=== PATIENT | male | born 1955 | race African-American/Black ===

== ENCOUNTER 2018-01-04 11:07 | Inpatient (IN) | payer OTHER ==
[2018-01-04 13:32] VITALS: BMI 26.6
--- NOTE | 2018-01-04 14:16 | HP ---
CIWA Score - CIWA Score Nausea/Vomitin Muscle Tremors: 3 Anxiety: 3 Agitation: 3 Paroxysmal Sweats: 2 Orientation: 0-Oriented Tacttile Disturbances: 2-Mild Itch/Numbness/Burn Auditory Disturbances: 2-Mild Harshness/Frighten Headache: 2-Mild Admission ROS BHS - HPI Chief Complaint: I NEED HELP TO STOP DRINKING ALCOHOL,XANAX,KLONOPOIN,SEEKING DETOX,LAST TREATMENT [facility] Allergies/Adverse Reactions: Allergies Allergy/AdvReac Type Severity Reaction Status Date / Time No Known Allergies Allergy Verified 01/04/18 14:11 History of Present Illness: THIS 62 YEARS OLD MALE WITH ALCOHOL,XANAX DEPENDENCE,SEEKING DETOX,WITHDRAWAL SYMPTOM,LAST DETOX [facility] 11/05/15 TO 11/10/15 [facility] 90 MGS/DAY,LAST MEDICATED TODAY, OLD ID LEFT INGUINAL HERNIA 4 YEARS HEPATITIS C NICOTINE DEPENDENCE LONGEST PERIOD OF SOBREITY 13 YEARS BPH Exam Limitations: No Limitations - Ebola screening Have you traveled outside of the country in the last 21 days: No Have you had contact with anyone from an Ebola affected area: No Have you been sick,other than usual withdrawal symptoms: No Do you have a fever: No - Review of Systems Constitutional: Loss of Appetite, Malaise, Night Sweats, Changes in sleep, Weakness EENT: reports: Tearing, Nose Congestion Respiratory: reports: No Symptoms reported Cardiac: reports: No Symptoms Reported, Other (OLD ID) GI: reports: Diarrhea, Nausea, Vomiting, Abdominal cramping : reports: Frequency, Urgency (HISTORY OF BPH) Musculoskeletal: reports: Back Pain, Muscle Pain Integumentary: reports: Dryness Neuro: reports: Headache, Tremors Endocrine: reports: No Symptoms Reported Hematology: reports: No Symptoms Reported Psychiatric: reports: Anxious, Depressed Patient History - Patient Medical History Hx Anemia: Yes Hx Asthma: No Hx Chronic Obstructive Pulmonary Disease (COPD): No Hx Cancer: No Hx Cardiac Disorders: No (CHEST PAINS OLD ID) Hx Congestive Heart Failure: No Hx Hypertension: Yes (NO MED) Hx Hypercholesterolemia: No Hx Pacemaker: No HX Cerebrovascular Accident: No Hx Seizures: No Hx Dementia: No Hx Diabetes: No Hx Gastrointestinal Disorders: No Hx Liver Disease: No Hx Genitourinary Disorders: No Hx Sexually Transmitted Disorders: Yes (GONORRHEA [place] YEARS AGO) Hx Renal Disease (ESRD): No Hx Thyroid Disease: No Hx Human Immunodeficiency Virus (HIV): No (negative "im ok"LAST 12/05) Hx Hepatitis C: Yes Hx Depression: No (DENIES) Hx Suicide Attempt: No (DENIES) Hx Bipolar Disorder: No Hx Schizophrenia: No Other Medical History: NO SUICIDAL.NO HOMICIDAL - Patient Surgical History Past Surgical History: Yes Hx Orthopedic Surgery: Yes (compound fracture remote L ankle) Anesthesia Reaction: No - PPD History Previous Implant?: Yes Documented Results: Positive w/o proof PPD to be Administered?: No - Smoking Cessation Smoking history: Current every day smoker Have you smoked in the past 12 months: Yes Aproximately how many cigarettes per day: 20 Cigars Per Day: 0 Hx Chewing Tobacco Use: No Initiated information on smoking cessation: Yes 'Breaking Loose' booklet given: 01/04/18 - Substance & Tx. History Hx Alcohol Use: Yes Hx Substance Use: Yes Substance Use Type: Alcohol, Tranquilizers Hx Substance Use Treatment: Yes (11/05/15 TO 11/10/15) - Substances Abused Alcohol Route: Oral Frequency: Daily Amount used: 1 pint vodka Age of first use: 11 Date of Last Use: 01/04/18 Benzodiazepine (Klonopin) Route: Oral Frequency: Daily Amount used: 4mg Age of first use: 55 Date of Last Use: 01/04/18 Family Disease History - Family Disease History Family Disease History: Other: Father (ALCOHOL,), Mother (ALCOHOL, ) Admission Physical Exam S - Vital Signs Vital Signs: Vital Signs - 24 hr 01/04/18 13:29 Temperature 96.4 F L Pulse Rate 77 Respiratory 20 Rate Blood Pressure 132/85 - Physical General Appearance: Yes: Moderate Distress, Tremorous, Irritable, Sweating, Anxious HEENTM: Yes: Normocephalic, COCO, Pharynx Normal Respiratory: Yes: Within Normal Limits, Lungs Clear, Normal Breath Sounds Neck: Yes: Within Normal Limits, Supple, Trachea in good position Breast: Yes: Within Normal Limits Cardiology: Yes: Within Normal Limits, Regular Rhythm, Regular Rate, S1, S2 Abdominal: Yes: Within Normal Limits (LEFT INGUINAL HERNIA SIZE [id number],REDUCIBLE ), Normal Bowel Sounds, Non Tender, Flat, Soft Genitourinary: Yes: Within Normal Limits Back: Yes: Muscle Spasm Musculoskeletal: Yes: Within Normal Limits, full range of Motion, Back pain Extremities: Yes: Tremors, Other (S/P SURGERY OF LEFT ANKLE) Neurological: Yes: 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 II-XII NML intact, Fully Oriented, Alert, Motor Strength 5/5 Integumentary: Yes: Dry Lymphatic: Yes: Within Normal Limits - Diagnostic (1) Alcohol dependence with uncomplicated withdrawal Current Visit: No Status: Acute (2) Opioid dependence Current Visit: Yes Status: Acute (3) Methadone maintenance therapy patient Current Visit: Yes Status: Acute (4) Uncomplicated sedative, hypnotic or anxiolytic withdrawal Current Visit: Yes Status: Acute (5) Left inguinal hernia Current Visit: No Status: Acute (6) BPH (benign prostatic hypertrophy) Current Visit: No Status: Chronic Qualifiers: Lower urinary tract symptom presence: symptoms present (7) Arthritis Current Visit: Yes Status: Acute (8) Use of cane as ambulatory aid Current Visit: Yes Status: Acute (9) Frequent falls Current Visit: Yes Status: Acute Cleared for Admission [facility] - Detox or Rehab [facility] Level of Care: Medically Managed Detox Regimen/Protocol: Librium [facility] Breath Alcohol Content Breath Alcohol Content: 0 Urine Drug Screen - Results Drug Screen Negative: No Urine Drug Screen Results: CORNELL-Cocaine, OPI-Opiates, BZO-Benzodiazepines, MTD- Methadone
[2018-01-04] MEDS ORDERED: MAGNESIUM CITRATE 300 ML BOTTLE PO PRN (14:46)
[2018-01-04] MEDS ORDERED: P-EPHED 60MG/TRIPROLIDI 2.5MG TABLET PO PRN (14:46)
[2018-01-04] MEDS ORDERED: MENTHOL/PHENOL 1 EACH UD MM PRN (14:46)
[2018-01-04] MEDS ORDERED: MAGNESIUM HYDROX 2400MG/30ML ORAL SUSPENSION 30 ML CUP PO PRN (14:46)
[2018-01-04] MEDS ORDERED: MAG HYDROX/AL HYDROX/SIMETH 30 ML UNIT-DOSE CUP PO PRN (14:46)
[2018-01-04] MEDS ORDERED: guaiFENesin/D-METHORPHAN HB 10 ML UNIT-DOSE CUPS PO PRN (14:46)
[2018-01-04] MEDS ORDERED: IBUPROFEN 400 MG TABLET (FP) PO PRN (14:46)
[2018-01-04] MEDS ORDERED: chlordiazePOXIDE HCL 25 MG CAPSULE PO PRN (14:46)
[2018-01-04] MEDS ORDERED: ACETAMINOPHEN 325 MG TABLET (FP) PO PRN (14:46)
[2018-01-04] MEDS ORDERED: hydrOXYzine PAMOATE 50 MG CAPSULE (FP) PO PRN (14:46)
[2018-01-04] MEDS ORDERED: chlordiazePOXIDE HCL 25 MG CAPSULE PO ONE (15:35)
[2018-01-04] MEDS ORDERED: COLLOIDAL OATMEAL 1 BAR EACH TP PRN (17:17)
[2018-01-04] MEDS: chlordiazePOXIDE HCL 25 MG CAPSULE PO SCH ×2 (17:59→22:32)
[2018-01-04] MEDS ORDERED: NICOTINE POLACRILEX 2 MG GUM BUC PRN (18:28)
[2018-01-04] MEDS: THIAMINE HCL 100 MG TABLET (FP) PO SCH (22:32)
[2018-01-04] MEDS: MELATONIN 5 MG TABLETS PO SCH (22:32)
[2018-01-05] MEDS: chlordiazePOXIDE HCL 25 MG CAPSULE PO SCH ×4 (06:29→22:16)
--- NOTE | 2018-01-05 08:56 | CONSULT ---
[facility] Psychiatric Consult - Data Date of interview: 01/05/18 Admission source: [facility] Identifying data: Pt. is a 62 year old single , , father of one, unemployed, and living with . This is one of multiple hospitalizations for patient. Pt. admitted to for cocaine, benzodiazepines, and opiate dependence. Substance Abuse History: Following information confirmed with Mr. Jiménez: Smoking Cessation. Smoking history: Current every day smoker. Have you smoked in the past 12 months: Yes. Aproximately how many cigarettes per day: 20. Cigars Per Day: 0. Hx Chewing Tobacco Use: No. Initiated information on smoking cessation: Yes. 'Breaking Loose' booklet given: 01/04/18. - Substance & Tx. History. Hx Alcohol Use: Yes. Hx Substance Use: Yes. Substance Use Type : Alcohol, Tranquilizers. Hx Substance Use Treatment: Yes (11/05/15 TO 11/10/15 ). - Substances Abused. Alcohol. Route: Oral. Frequency: Daily. Amount used: 1 pint vodka. Age of first use: 11. Date of Last Use: 01/04/18. Benzodiazepine (Klonopin). Route: Oral. Frequency: Daily. Amount used: 4mg. Age of first use: 55. Date of Last Use: 01/04/18 Medical History: h/o chest pain, hypertension, Hep C Psychiatric History: Pt. irrtiable and agitated during interview process. Pt. denies h/o psychiatric hospitalizations, outpatient treatment, and suicide attempt. Physical/Sexual Abuse/Trauma History: Denies. Mental Status Exam - Mental Status Exam Alert and Oriented to: Time, Place, Person Cognitive Function: Good Patient Appearance: Well Groomed Mood: Irritable Affect: Mood Congruent Patient Behavior: Agitated Speech Pattern: Appropriate Voice Loudness: Normal Thought Process: Goal Oriented Thought Disorder: Not Present Hallucinations: Denies Suicidal Ideation: Denies Homicidal Ideation: Denies Insight/Judgement: Poor Sleep: Fair Appetite: Fair Muscle strength/Tone: Normal Gait/Station: Normal Psychiatric Findings - Problem List ([place] 1, 2,3) (1) Substance induced mood disorder Current Visit: Yes Status: Acute (2) Methadone maintenance therapy patient Current Visit: Yes Status: Acute (3) Opioid dependence Current Visit: Yes Status: Acute (4) Uncomplicated sedative, hypnotic or anxiolytic withdrawal Current Visit: Yes Status: Acute (5) Alcohol dependence with uncomplicated withdrawal Current Visit: No Status: Acute - Initial Treatment Plan Initial Treatment Plan: Psychoeducation provided. Detoxification in progress. Observation.
[2018-01-05] MEDS ORDERED: METHADONE HCL 10 MG TABLET PO SCH (09:30)
[2018-01-05] MEDS ORDERED: METHADONE HCL 40 MG DISPERSABLE TABLET ONE (09:49)
[2018-01-05] MEDS ORDERED: METHADONE HCL 10 MG TABLET ONE (09:49)
--- NOTE | 2018-01-05 09:59 | EKG ---
Test Reason : Blood Pressure : / mmHG Vent. 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
[2018-01-05] MEDS: ASPIRIN 81 MG CHEWABLE TABLETS PO SCH (10:04)
[2018-01-05] MEDS: METHADONE 80 MG, METHADONE 10 MG PO SCH (10:04)
[2018-01-05] MEDS: TAMSULOSIN HCL 0.4 MG CAP.ER.24H (FP) PO SCH (10:04)
[2018-01-05] MEDS: LOPERAMIDE HCL 2 MG CAPSULE PO PRN ×2 (10:04→22:16)
[2018-01-05] MEDS: PRENATAL VITAMINS W/ FOLIC ACID TABLET (FP) PO SCH (10:04)
[2018-01-05 10:09] LABS: URINE APPEARANCE CLEAR; URINE BILIRUBIN NEGATIVE (NEGATIVE); URINE BLOOD NEGATIVE (NEGATIVE); URINE COLOR LTYELLOW; URINE GLUCOSE (UA) NEGATIVE (NEGATIVE); URINE KETONE NEGATIVE (NEGATIVE); URINE LEUK ESTERASE NEGATIVE (NEGATIVE); URINE NITRITE NEGATIVE (NEGATIVE); URINE PROTEIN NEGATIVE (NEGATIVE); URINE UROBILINOGEN NEGATIVE mg/dL (0.2-1.0)
[2018-01-05 10:15] LABS: HEMATOCRIT 34.1 % (35.4-49); HEMOGLOBIN 10.7 GM/dL (11.7-16.9); MCH 27.5 pg (25.7-33.7); MCHC 31.5 g/dl (32.0-35.9); MEAN CELL VOLUME 87.2 fl (80-96); MEAN PLT VOLUME 9.1 fl (7.5-11.1); PLATELET COUNT 180 K/MM3 (134-434); RBC 3.91 M/mm3 (4.00-5.60); RDW 16.3 % (11.9-15.9); WHITE BLOOD COUNT 6.4 K/mm3 (4.0-10.0)
[2018-01-05 10:40] LABS: CHLORIDE 108 mmol/L (98-107); POTASSIUM 5.4 mmol/L (3.5-5.1); SODIUM 141 mmol/L (136-145)
[2018-01-05 10:51] LABS: ALBUMIN 3.8 g/dl (3.4-5.0); ALK PHOS 139 U/L (45-117); ANION GAP 9 (8-16); BILIRUBIN,TOTAL 0.3 mg/dL (0.2-1.0); BLOOD UREA NITROGEN 37 mg/dL (7-18); CALCIUM 8.6 mg/dL (8.5-10.1); CO2 24 mmol/L (21-32); CREATININE 2.9 mg/dL (0.7-1.3); GLUCOSE,RANDOM 83 mg/dL (74-106); SGOT/AST 17 U/L (15-37); SGPT/ALT 20 U/L (12-78); TOT PROT 8.3 g/dl (6.4-8.2)
--- NOTE | 2018-01-05 12:36 | PN ---
[facility] CIWA - CIWA Score Nausea/Vomitin-No Nausea/No Vomiting Muscle Tremors: 3 Anxiety: 5 Agitation: 3 Paroxysmal Sweats: 3 Orientation: 0-Oriented Tacttile Disturbances: 2-Mild Itch/Numbness/Burn Auditory Disturbances: 0-None Visual Disturbances: 2-Mild Sensitivity Headache: 0-None Present CIWA-Ar Total Score: 18 BHS Progress Note (SOAP) Subjective: Sweating, Tremors, Body Aches, Nausea, Anxious. Objective: PATIENT A & O X 3, OBSERVED AMBULATING ON UNIT WITH ASSISTANCE OF A CANE. NO ACUTE DISTRESS. 01/05/18 12:37 Vital Signs Temperature 97.4 F L 01/05/18 09:43 Pulse Rate 73 01/05/18 09:43 Respiratory Rate 16 01/05/18 09:43 Blood Pressure 143/93 01/05/18 09:43 O2 Sat by Pulse Oximetry (%) Laboratory Tests 01/04/18 01/05/18 01/05/18 15:03 06:00 06:00 WBC 6.4 RBC 3.91 L Hgb 10.7 L Hct 34.1 L MCV 87.2 MCH 27.5 MCHC 31.5 L RDW 16.3 H Plt Count 180 MPV 9.1 D Sodium 141 Potassium 5.4 H Chloride 108 H Carbon Dioxide 24 Anion Gap 9 BUN 37 H D Creatinine 2.9 H D Creat Clearance w eGFR 22.02 Random Glucose 83 Calcium 8.6 Total Bilirubin 0.3 D AST 17 ALT 20 D Alkaline Phosphatase 139 H D Total Protein 8.3 H D Albumin 3.8 D Urine Color Ltyellow Urine Appearance Clear Urine pH 6.0 Ur Specific [place] 1.012 Urine Protein Negative Urine Glucose (UA) Negative Urine Ketones Negative Urine Blood Negative Urine Nitrite Negative Urine Bilirubin Negative Urine Urobilinogen Negative Ur Leukocyte Esterase Negative LABS NOTED. Assessment: 01/05/18 12:37 WITHDRAWAL SYMPTOMS. HYPERKALEMIA. 01/05/18 12:41 Plan: CONTINUE DETOX. BMP ON 01/07/2018 FOR ELEVATED K LEVEL AND FOR ABNORMAL ADMISSION RENAL LAB VALUES. D/C IBUPROFEN AND MAGNESIUM-CONTAINING MEDS.
[2018-01-05] MEDS: MELATONIN 5 MG TABLETS PO SCH (22:16)
[2018-01-05] MEDS: THIAMINE HCL 100 MG TABLET (FP) PO SCH (22:16)
[2018-01-06] MEDS ORDERED: METHADONE HCL 10 MG TABLET ONE ×2 (04:04→09:35)
[2018-01-06] MEDS ORDERED: METHADONE HCL 40 MG DISPERSABLE TABLET ONE ×2 (04:04→09:35)
[2018-01-06] MEDS: LOPERAMIDE HCL 2 MG CAPSULE PO PRN (05:43)
[2018-01-06] MEDS: chlordiazePOXIDE HCL 25 MG CAPSULE PO SCH ×2 (06:18→10:15)
[2018-01-06] MEDS: METHADONE 80 MG, METHADONE 10 MG PO SCH (07:21)
[2018-01-06] MEDS ORDERED: METHADONE HCL 10 MG TABLET PO ONE (09:18)
[2018-01-06] MEDS ORDERED: METHADONE 80 MG, METHADONE 10 MG PO ONE (09:35)
[2018-01-06] MEDS: PRENATAL VITAMINS W/ FOLIC ACID TABLET (FP) PO SCH (09:40)
[2018-01-06] MEDS: DIPHENOXYLATE 2.5/ATROPINE.025 1 COMBO TABLET PO PRN ×2 (09:40→17:41)
[2018-01-06] MEDS: ASPIRIN 81 MG CHEWABLE TABLETS PO SCH (09:40)
[2018-01-06] MEDS: TAMSULOSIN HCL 0.4 MG CAP.ER.24H (FP) PO SCH (09:40)
[2018-01-06] MEDS: NICOTINE 21 MG/24 HOURS TOPICAL PATCH TD SCH (10:15)
[2018-01-06 10:31] LABS: ANION GAP 10 (8-16); BLOOD UREA NITROGEN 40 mg/dL (7-18); CALCIUM 8.7 mg/dL (8.5-10.1); CHLORIDE 111 mmol/L (98-107); CO2 21 mmol/L (21-32); GLUCOSE,RANDOM 65 mg/dL (74-106); SODIUM 142 mmol/L (136-145)
[2018-01-06 10:33] LABS: CREATININE 2.4 mg/dL (0.7-1.3)
[2018-01-06 10:52] LABS: POTASSIUM 5.3 mmol/L (3.5-5.1)
--- NOTE | 2018-01-06 13:02 | PN ---
[facility] CIWA - CIWA Score Nausea/Vomitin-No Nausea/No Vomiting Muscle Tremors: 2 Anxiety: 4-Mod. Anxious/Guarded Agitation: 2 Paroxysmal Sweats: No Perspiration Orientation: 0-Oriented Tacttile Disturbances: 2-Mild Itch/Numbness/Burn Auditory Disturbances: 1-Very Mild Visual Disturbances: 2-Mild Sensitivity Headache: 0-None Present CIWA-Ar Total Score: 13 S Progress Note (SOAP) Subjective: Stomach Cramping, Diarrhea, Fatigue, Anxious. Objective: PATIENT A & O X 3, OBSERVED AMBULATING ON UNIT. NO ACUTE DISTRESS. 01/06/18 13:00 Vital Signs Temperature 97.3 F L 01/06/18 10:01 Pulse Rate 66 01/06/18 10:01 Respiratory Rate 20 01/06/18 10:01 Blood Pressure 129/85 01/06/18 10:01 O2 Sat by Pulse Oximetry (%) Laboratory Tests 01/04/18 01/05/18 01/05/18 15:03 06:00 06:00 WBC 6.4 RBC 3.91 L Hgb 10.7 L Hct 34.1 L MCV 87.2 MCH 27.5 MCHC 31.5 L RDW 16.3 H Plt Count 180 MPV 9.1 D Sodium Potassium Chloride Carbon Dioxide Anion Gap BUN Creatinine Creat Clearance w eGFR Random Glucose Calcium Total Bilirubin AST ALT Alkaline Phosphatase Total Protein Albumin Urine Color Ltyellow Urine Appearance Clear Urine pH 6.0 Ur Specific [place] 1.012 Urine Protein Negative Urine Glucose (UA) Negative Urine Ketones Negative Urine Blood Negative Urine Nitrite Negative Urine Bilirubin Negative Urine Urobilinogen Negative Ur Leukocyte Esterase Negative RPR Titer HIV 1&2 Antibody Screen Negative HIV P24 Antigen Negative 01/05/18 01/05/18 01/06/18 06:00 06:00 07:30 WBC RBC Hgb Hct MCV MCH MCHC RDW Plt Count MPV Sodium 141 142 Potassium 5.4 H 5.3 H Chloride 108 H 111 H Carbon Dioxide 24 21 Anion Gap 9 10 BUN 37 H D 40 H Creatinine 2.9 H D 2.4 H Creat Clearance w eGFR 22.02 Random Glucose 83 65 L D Calcium 8.6 8.7 Total Bilirubin 0.3 D AST 17 ALT 20 D Alkaline Phosphatase 139 H D Total Protein 8.3 H D Albumin 3.8 D Urine Color Urine Appearance Urine pH Ur Specific [place] Urine Protein Urine Glucose (UA) Urine Ketones Urine Blood Urine Nitrite Urine Bilirubin Urine Urobilinogen Ur Leukocyte Esterase RPR Titer Nonreactive HIV 1&2 Antibody Screen HIV P24 Antigen LABS NOTED. Assessment: 01/06/18 13:00 WITHDRAWAL SYMPTOMS. ANEMIA. 01/06/18 13:02 Plan: CONTINUE DETOX. PATIENT CURRENTLY PRESCRIBED MVI WITH IRON WHILE ADMITTED FOR DETOX. INCREASE DAILY PO FLUID INTAKE. PRN IMMODIUM FOR DIARRHEA.
[2018-01-06] MEDS: chlordiazePOXIDE 5 MG CAPSULE PO SCH ×2 (17:37→22:12)
[2018-01-06] MEDS: MELATONIN 5 MG TABLETS PO SCH (22:12)
[2018-01-06] MEDS: THIAMINE HCL 100 MG TABLET (FP) PO SCH (22:12)
[2018-01-07] MEDS ORDERED: METHADONE HCL 10 MG TABLET ONE (04:35)
[2018-01-07] MEDS ORDERED: METHADONE HCL 40 MG DISPERSABLE TABLET ONE (04:36)
[2018-01-07] MEDS: METHADONE 80 MG, METHADONE 10 MG PO SCH (06:58)
[2018-01-07] MEDS: chlordiazePOXIDE 5 MG CAPSULE PO SCH ×2 (06:58→10:25)
[2018-01-07] MEDS: TAMSULOSIN HCL 0.4 MG CAP.ER.24H (FP) PO SCH (10:25)
[2018-01-07] MEDS: NICOTINE 21 MG/24 HOURS TOPICAL PATCH TD SCH (10:25)
[2018-01-07] MEDS: ASPIRIN 81 MG CHEWABLE TABLETS PO SCH (10:25)
[2018-01-07] MEDS: PRENATAL VITAMINS W/ FOLIC ACID TABLET (FP) PO SCH (10:25)
--- NOTE | 2018-01-07 12:43 | PN ---
[facility] Progress Note (SOAP) Subjective: Anxious, Body Aches, Diarrhea. Objective: PATIENT A & O X 3, OBSERVED AMBULATING ON UNIT WITH ASSISTANCE OF A CANE. NO ACUTE DISTRESS. 01/07/18 12:40 Vital Signs Temperature 97.7 F 01/07/18 10:40 Pulse Rate 73 01/07/18 10:40 Respiratory Rate 19 01/07/18 10:40 Blood Pressure 118/79 01/07/18 10:40 O2 Sat by Pulse Oximetry (%) Laboratory Tests 01/04/18 01/05/18 01/05/18 15:03 06:00 06:00 WBC 6.4 RBC 3.91 L Hgb 10.7 L Hct 34.1 L MCV 87.2 MCH 27.5 MCHC 31.5 L RDW 16.3 H Plt Count 180 MPV 9.1 D Sodium Potassium Chloride Carbon Dioxide Anion Gap BUN Creatinine Creat Clearance w eGFR Random Glucose Calcium Total Bilirubin AST ALT Alkaline Phosphatase Total Protein Albumin Urine Color Ltyellow Urine Appearance Clear Urine pH 6.0 Ur Specific [place] 1.012 Urine Protein Negative Urine Glucose (UA) Negative Urine Ketones Negative Urine Blood Negative Urine Nitrite Negative Urine Bilirubin Negative Urine Urobilinogen Negative Ur Leukocyte Esterase Negative RPR Titer HIV 1&2 Antibody Screen Negative HIV P24 Antigen Negative 01/05/18 01/05/18 01/06/18 06:00 06:00 07:30 WBC RBC Hgb Hct MCV MCH MCHC RDW Plt Count MPV Sodium 141 142 Potassium 5.4 H 5.3 H Chloride 108 H 111 H Carbon Dioxide 24 21 Anion Gap 9 10 BUN 37 H D 40 H Creatinine 2.9 H D 2.4 H Creat Clearance w eGFR 22.02 Random Glucose 83 65 L D Calcium 8.6 8.7 Total Bilirubin 0.3 D AST 17 ALT 20 D Alkaline Phosphatase 139 H D Total Protein 8.3 H D Albumin 3.8 D Urine Color Urine Appearance Urine pH Ur Specific [place] Urine Protein Urine Glucose (UA) Urine Ketones Urine Blood Urine Nitrite Urine Bilirubin Urine Urobilinogen Ur Leukocyte Esterase RPR Titer Nonreactive HIV 1&2 Antibody Screen HIV P24 Antigen LABS NOTED. Assessment: 01/07/18 12:41 WITHDRAWAL SYMPTOMS. Plan: CONTINUE DETOX. PRN LOMOTIL FOR DIARRHEA. INCREASE DAILY PO FLUID INTAKE.
[2018-01-07] MEDS: chlordiazePOXIDE HCL 10 MG CAPSULE PO SCH ×2 (17:31→22:07)
[2018-01-07] MEDS: DIPHENOXYLATE 2.5/ATROPINE.025 1 COMBO TABLET PO PRN (17:33)
[2018-01-07] MEDS: MELATONIN 5 MG TABLETS PO SCH (22:07)
[2018-01-07] MEDS: THIAMINE HCL 100 MG TABLET (FP) PO SCH (22:07)
[2018-01-08] MEDS ORDERED: METHADONE HCL 10 MG TABLET ONE (04:18)
[2018-01-08] MEDS ORDERED: METHADONE HCL 40 MG DISPERSABLE TABLET ONE (04:19)
[2018-01-08] MEDS: chlordiazePOXIDE HCL 10 MG CAPSULE PO SCH ×2 (05:59→10:17)
[2018-01-08] MEDS: METHADONE 80 MG, METHADONE 10 MG PO SCH (05:59)
[2018-01-08] MEDS: DIPHENOXYLATE 2.5/ATROPINE.025 1 COMBO TABLET PO PRN (06:02)
--- NOTE | 2018-01-08 06:20 | PN ---
[facility] Progress Note Note: seen for c/o diarrhea. client c/o 3 episode of watery stool overnight. Now states he feels weakness and dizziness with abdominal cramping. Denies c.p., sob , blood in stool. awake, alert, holding stomach watery stool noted in toilet bowl abd- hyperactive bs vs 128/84 hr 89 r 18 t. 97.7 diarrhea p- hold dc for now cont to monitor for worsening sx's lomotil as ordered brat diet. encourage po hydration
[2018-01-08] MEDS: TAMSULOSIN HCL 0.4 MG CAP.ER.24H (FP) PO SCH (10:17)
[2018-01-08] MEDS: ASPIRIN 81 MG CHEWABLE TABLETS PO SCH (10:17)
[2018-01-08] MEDS: PRENATAL VITAMINS W/ FOLIC ACID TABLET (FP) PO SCH (10:17)
[2018-01-08] MEDS: NICOTINE 21 MG/24 HOURS TOPICAL PATCH TD SCH (10:17)
--- NOTE | 2018-01-08 16:50 | PN ---
S Progress Note (SOAP) Subjective: Diarrhea, Fatigue, Anxious. Objective: PATIENT A & O X 3, OBSERVED AMBULATING ON UNIT WITH ASSISTANCE OF A CANE. NO ACUTE DISTRESS. 01/08/18 16:47 Vital Signs Temperature 95.9 F L 01/08/18 13:49 Pulse Rate 79 01/08/18 13:49 Respiratory Rate 19 01/08/18 13:49 Blood Pressure 111/70 01/08/18 13:49 O2 Sat by Pulse Oximetry (%) Laboratory Tests 01/04/18 01/05/18 01/05/18 15:03 06:00 06:00 WBC 6.4 RBC 3.91 L Hgb 10.7 L Hct 34.1 L MCV 87.2 MCH 27.5 MCHC 31.5 L RDW 16.3 H Plt Count 180 MPV 9.1 D Sodium Potassium Chloride Carbon Dioxide Anion Gap BUN Creatinine Creat Clearance w eGFR Random Glucose Calcium Total Bilirubin AST ALT Alkaline Phosphatase Total Protein Albumin Urine Color Ltyellow Urine Appearance Clear Urine pH 6.0 Ur Specific [place] 1.012 Urine Protein Negative Urine Glucose (UA) Negative Urine Ketones Negative Urine Blood Negative Urine Nitrite Negative Urine Bilirubin Negative Urine Urobilinogen Negative Ur Leukocyte Esterase Negative RPR Titer HIV 1&2 Antibody Screen Negative HIV P24 Antigen Negative 01/05/18 01/05/18 01/06/18 06:00 06:00 07:30 WBC RBC Hgb Hct MCV MCH MCHC RDW Plt Count MPV Sodium 141 142 Potassium 5.4 H 5.3 H Chloride 108 H 111 H Carbon Dioxide 24 21 Anion Gap 9 10 BUN 37 H D 40 H Creatinine 2.9 H D 2.4 H Creat Clearance w eGFR 22.02 Random Glucose 83 65 L D Calcium 8.6 8.7 Total Bilirubin 0.3 D AST 17 ALT 20 D Alkaline Phosphatase 139 H D Total Protein 8.3 H D Albumin 3.8 D Urine Color Urine Appearance Urine pH Ur Specific [place] Urine Protein Urine Glucose (UA) Urine Ketones Urine Blood Urine Nitrite Urine Bilirubin Urine Urobilinogen Ur Leukocyte Esterase RPR Titer Nonreactive HIV 1&2 Antibody Screen HIV P24 Antigen LABS NOTED. Assessment: 01/08/18 16:47 WITHDRAWAL SYMPTOMS. Plan: CONTINUE DETOX. INCREASE DAILY PO FLUID INTAKE. PRN LOMOTIL FOR DIARRHEA. PATIENT ORIGINALLY SCHEDULED FOR D/C EARLIER THIS AM. HOWEVER, DISCHARGE D/C'D BY OVERNIGHT COVERING MEDICAL PROVIDER. PATIENT UNLABE TO LEAVE LATER ON IN DAY BECAUSE HE MMTP CLIENT AND PROGRAM IS CLOSED TOMORROW. PATIENT TO BE EVALUATED FOR POSSIBLE DISCHARGE AGAIN TOMORROW.
[2018-01-08] MEDS: THIAMINE HCL 100 MG TABLET (FP) PO SCH (22:15)
[2018-01-08] MEDS: MELATONIN 5 MG TABLETS PO SCH (22:15)
[2018-01-09] MEDS ORDERED: METHADONE HCL 40 MG DISPERSABLE TABLET ONE (04:10)
[2018-01-09] MEDS ORDERED: METHADONE HCL 10 MG TABLET ONE (04:10)
[2018-01-09] MEDS: METHADONE 80 MG, METHADONE 10 MG PO SCH (05:57)
[2018-01-09] MEDS: PRENATAL VITAMINS W/ FOLIC ACID TABLET (FP) PO SCH (11:21)
[2018-01-09] MEDS: TAMSULOSIN HCL 0.4 MG CAP.ER.24H (FP) PO SCH (11:21)
[2018-01-09] MEDS: NICOTINE 21 MG/24 HOURS TOPICAL PATCH TD SCH (11:21)
[2018-01-09] MEDS: ASPIRIN 81 MG CHEWABLE TABLETS PO SCH (11:21)
--- NOTE | 2018-01-09 14:31 | PN ---
[facility] Progress Note (SOAP) Subjective: Diarrhea (now soft stool x 1 as per patient), stomach ache, chills, interrupted sleep. Patient is requesting regular diet. Objective: 01/09/18 14:27 Last Vital Signs Temp Pulse Resp BP Pulse Ox 97 F L 87 20 85/64 01/09/18 14:02 01/09/18 14:02 01/09/18 14:02 01/09/18 14:02 Laboratory Tests 01/04/18 01/05/18 01/05/18 15:03 06:00 06:00 WBC 6.4 RBC 3.91 L Hgb 10.7 L Hct 34.1 L MCV 87.2 MCH 27.5 MCHC 31.5 L RDW 16.3 H Plt Count 180 MPV 9.1 D Sodium Potassium Chloride Carbon Dioxide Anion Gap BUN Creatinine Creat Clearance w eGFR Random Glucose Calcium Total Bilirubin AST ALT Alkaline Phosphatase Total Protein Albumin Urine Color Ltyellow Urine Appearance Clear Urine pH 6.0 Ur Specific [place] 1.012 Urine Protein Negative Urine Glucose (UA) Negative Urine Ketones Negative Urine Blood Negative Urine Nitrite Negative Urine Bilirubin Negative Urine Urobilinogen Negative Ur Leukocyte Esterase Negative RPR Titer HIV 1&2 Antibody Screen Negative HIV P24 Antigen Negative 01/05/18 01/05/18 01/06/18 06:00 06:00 07:30 WBC RBC Hgb Hct MCV MCH MCHC RDW Plt Count MPV Sodium 141 142 Potassium 5.4 H 5.3 H Chloride 108 H 111 H Carbon Dioxide 24 21 Anion Gap 9 10 BUN 37 H D 40 H Creatinine 2.9 H D 2.4 H Creat Clearance w eGFR 22.02 Random Glucose 83 65 L D Calcium 8.6 8.7 Total Bilirubin 0.3 D AST 17 ALT 20 D Alkaline Phosphatase 139 H D Total Protein 8.3 H D Albumin 3.8 D Urine Color Urine Appearance Urine pH Ur Specific [place] Urine Protein Urine Glucose (UA) Urine Ketones Urine Blood Urine Nitrite Urine Bilirubin Urine Urobilinogen Ur Leukocyte Esterase RPR Titer Nonreactive HIV 1&2 Antibody Screen HIV P24 Antigen Labs noted: CESAR and hypotension Assessment: 01/09/18 14:28 Withdrawal symptoms Noted with CESRA and hypotension Plan: Continue detox Hold discharge until electrolytes and b/p stabilized CESAR: Encouraged PO water intake for hydration, repeat CMP Hypotension: asymptomatic, encouraged to drink lots of water
[2018-01-09] MEDS ORDERED: DIPHENOXYLATE 2.5/ATROPINE.025 1 COMBO TABLET PO PRN (19:14)
[2018-01-09] MEDS: MELATONIN 5 MG TABLETS PO SCH (22:21)
[2018-01-09] MEDS: THIAMINE HCL 100 MG TABLET (FP) PO SCH (22:21)
[2018-01-10] MEDS ORDERED: METHADONE HCL 10 MG TABLET ONE ×2 (05:11→11:01)
[2018-01-10] MEDS ORDERED: METHADONE HCL 40 MG DISPERSABLE TABLET ONE ×2 (05:11→11:01)
[2018-01-10] MEDS: METHADONE 80 MG, METHADONE 10 MG PO SCH (07:00)
[2018-01-10 09:32] VITALS: BP 122/78; PULSE 76; TEMP 97.7
[2018-01-10 10:15] LABS: BASO % 0.5 % (0-2.0); EOS % 4.1 % (0-4.5); HEMATOCRIT 33.5 % (35.4-49); HEMOGLOBIN 10.6 GM/dL (11.7-16.9); LYMPH % 26.7 % (8-40); MCH 27.6 pg (25.7-33.7); MCHC 31.6 g/dl (32.0-35.9); MEAN CELL VOLUME 87.4 fl (80-96); MEAN PLT VOLUME 8.9 fl (7.5-11.1); MONO % 13.2 % (3.8-10.2); NEUT % 55.5 % (42.8-82.8); PLATELET COUNT 143 K/MM3 (134-434); RBC 3.84 M/mm3 (4.00-5.60); RDW 16.4 % (11.9-15.9)
[2018-01-10] MEDS ORDERED: METHADONE HCL 10 MG TABLET PO ONE (10:29)
[2018-01-10 10:35] LABS: ALBUMIN 3.3 g/dl (3.4-5.0); ANION GAP 6 (8-16); BLOOD UREA NITROGEN 39 mg/dL (7-18); CALCIUM 8.7 mg/dL (8.5-10.1); CHLORIDE 110 mmol/L (98-107); CO2 26 mmol/L (21-32); CREATININE 2.6 mg/dL (0.7-1.3); GLUCOSE,RANDOM 72 mg/dL (74-106); POTASSIUM 5.9 mmol/L (3.5-5.1); SGOT/AST 35 U/L (15-37); SGPT/ALT 40 U/L (12-78); SODIUM 142 mmol/L (136-145)
[2018-01-10 10:38] LABS: ALK PHOS 137 U/L (45-117); BILIRUBIN,TOTAL 0.3 mg/dL (0.2-1.0); TOT PROT 7.4 g/dl (6.4-8.2)
[2018-01-10] MEDS ORDERED: METHADONE 80 MG, METHADONE 10 MG PO ONE (10:50)
[2018-01-10] MEDS: NICOTINE 21 MG/24 HOURS TOPICAL PATCH TD SCH (11:03)
[2018-01-10] MEDS: ASPIRIN 81 MG CHEWABLE TABLETS PO SCH (11:03)
[2018-01-10] MEDS: PRENATAL VITAMINS W/ FOLIC ACID TABLET (FP) PO SCH (11:03)
[2018-01-10] MEDS: TAMSULOSIN HCL 0.4 MG CAP.ER.24H (FP) PO SCH (11:03)
--- NOTE | 2018-01-10 19:28 | PN ---
S Progress Note (SOAP) Subjective: Patient denies any current detox symptoms and reports that he is feeling well overall. Objective: PATIENT A & O X 3, OBSERVED AMBULATING ON UNIT. NO ACUTE DISTRESS. 01/10/18 19:23 Vital Signs Temperature 97.7 F 01/10/18 09:30 Pulse Rate 76 01/10/18 09:30 Respiratory Rate 18 01/10/18 09:30 Blood Pressure 122/78 01/10/18 09:30 O2 Sat by Pulse Oximetry (%) Laboratory Tests 01/04/18 01/05/18 01/05/18 15:03 06:00 06:00 WBC 6.4 RBC 3.91 L Hgb 10.7 L Hct 34.1 L MCV 87.2 MCH 27.5 MCHC 31.5 L RDW 16.3 H Plt Count 180 MPV 9.1 D Neutrophils % Lymphocytes % Monocytes % Eosinophils % Basophils % Sodium Potassium Chloride Carbon Dioxide Anion Gap BUN Creatinine Creat Clearance w eGFR Random Glucose Calcium Total Bilirubin AST ALT Alkaline Phosphatase Total Protein Albumin Urine Color Ltyellow Urine Appearance Clear Urine pH 6.0 Ur Specific [place] 1.012 Urine Protein Negative Urine Glucose (UA) Negative Urine Ketones Negative Urine Blood Negative Urine Nitrite Negative Urine Bilirubin Negative Urine Urobilinogen Negative Ur Leukocyte Esterase Negative RPR Titer HIV 1&2 Antibody Screen Negative HIV P24 Antigen Negative 01/05/18 01/05/18 01/06/18 06:00 06:00 07:30 WBC RBC Hgb Hct MCV MCH MCHC RDW Plt Count MPV Neutrophils % Lymphocytes % Monocytes % Eosinophils % Basophils % Sodium 141 142 Potassium 5.4 H 5.3 H Chloride 108 H 111 H Carbon Dioxide 24 21 Anion Gap 9 10 BUN 37 H D 40 H Creatinine 2.9 H D 2.4 H Creat Clearance w eGFR 22.02 Random Glucose 83 65 L D Calcium 8.6 8.7 Total Bilirubin 0.3 D AST 17 ALT 20 D Alkaline Phosphatase 139 H D Total Protein 8.3 H D Albumin 3.8 D Urine Color Urine Appearance Urine pH Ur Specific [place] Urine Protein Urine Glucose (UA) Urine Ketones Urine Blood Urine Nitrite Urine Bilirubin Urine Urobilinogen Ur Leukocyte Esterase RPR Titer Nonreactive HIV 1&2 Antibody Screen HIV P24 Antigen 01/10/18 01/10/18 07:00 07:00 WBC 5.0 RBC 3.84 L Hgb 10.6 L Hct 33.5 L MCV 87.4 MCH 27.6 MCHC 31.6 L RDW 16.4 H Plt Count 143 D MPV 8.9 Neutrophils % 55.5 Lymphocytes % 26.7 D Monocytes % 13.2 H Eosinophils % 4.1 D Basophils % 0.5 Sodium 142 Potassium 5.9 H Chloride 110 H Carbon Dioxide 26 D Anion Gap 6 L BUN 39 H Creatinine 2.6 H Creat Clearance w eGFR 24.98 Random Glucose 72 L Calcium 8.7 Total Bilirubin 0.3 AST 35 D ALT 40 D Alkaline Phosphatase 137 H Total Protein 7.4 Albumin 3.3 L Urine Color Urine Appearance Urine pH Ur Specific [place] Urine Protein Urine Glucose (UA) Urine Ketones Urine Blood Urine Nitrite Urine Bilirubin Urine Urobilinogen Ur Leukocyte Esterase RPR Titer HIV 1&2 Antibody Screen HIV P24 Antigen LABS NOTED. Assessment: 01/10/18 19:26 COMPLETION OF DETOX REGIMEN. Plan: PATIENT SCHEDULED FOR DISCHARGE FROM DETOX TODAY. PATIENT WILL RETURN TO [facility] / [facility] PROGRAM FOR AFTERCARE.
--- NOTE | 2018-01-10 19:35 | DS ---
[facility] Detox Discharge Summary Admission Date: 01/04/18 Discharge Date: 01/10/18 - History Present History: Alcohol Dependence, Opioid Dependence, Sedative Dependence, MMTP Additional Comments: PATIENT WILL RETURN [facility] FOR AFTERCARE. PATIENT ADVISED TO FOLLOW-UP WITH MEDICAL PROVIDER AT [facility] FOR GENERAL MEDICAL ASSESSMENT AND FOR ABNORMAL RENAL AND POTASSIUM LABS WHILE ADMITTED FOR DETOX. PATIENT WAS DISCHARGED FROM DETOX UNIT IN STABLE MEDICAL CONDITION. Pertinent Past History: HTN, BPH, Hep C, MMTP, Frequent Falls, Use of Cane as Ambulatory Aid, Arthritis , Insomnia, Depression, Anxiety. - Physical Exam Results Vital Signs: Vital Signs Temperature 97.7 F 01/10/18 09:30 Pulse Rate 76 01/10/18 09:30 Respiratory Rate 18 01/10/18 09:30 Blood Pressure 122/78 01/10/18 09:30 O2 Sat by Pulse Oximetry (%) Pertinent Admission Physical Exam Findings: WITHDRAWAL SYMPTOMS. Laboratory Tests 01/04/18 01/05/18 01/05/18 15:03 06:00 06:00 WBC 6.4 RBC 3.91 L Hgb 10.7 L Hct 34.1 L MCV 87.2 MCH 27.5 MCHC 31.5 L RDW 16.3 H Plt Count 180 MPV 9.1 D Neutrophils % Lymphocytes % Monocytes % Eosinophils % Basophils % Sodium Potassium Chloride Carbon Dioxide Anion Gap BUN Creatinine Creat Clearance w eGFR Random Glucose Calcium Total Bilirubin AST ALT Alkaline Phosphatase Total Protein Albumin Urine Color Ltyellow Urine Appearance Clear Urine pH 6.0 Ur Specific [place] 1.012 Urine Protein Negative Urine Glucose (UA) Negative Urine Ketones Negative Urine Blood Negative Urine Nitrite Negative Urine Bilirubin Negative Urine Urobilinogen Negative Ur Leukocyte Esterase Negative RPR Titer HIV 1&2 Antibody Screen Negative HIV P24 Antigen Negative 01/05/18 01/05/18 01/06/18 06:00 06:00 07:30 WBC RBC Hgb Hct MCV MCH MCHC RDW Plt Count MPV Neutrophils % Lymphocytes % Monocytes % Eosinophils % Basophils % Sodium 141 142 Potassium 5.4 H 5.3 H Chloride 108 H 111 H Carbon Dioxide 24 21 Anion Gap 9 10 BUN 37 H D 40 H Creatinine 2.9 H D 2.4 H Creat Clearance w eGFR 22.02 Random Glucose 83 65 L D Calcium 8.6 8.7 Total Bilirubin 0.3 D AST 17 ALT 20 D Alkaline Phosphatase 139 H D Total Protein 8.3 H D Albumin 3.8 D Urine Color Urine Appearance Urine pH Ur Specific [place] Urine Protein Urine Glucose (UA) Urine Ketones Urine Blood Urine Nitrite Urine Bilirubin Urine Urobilinogen Ur Leukocyte Esterase RPR Titer Nonreactive HIV 1&2 Antibody Screen HIV P24 Antigen 01/10/18 01/10/18 07:00 07:00 WBC 5.0 RBC 3.84 L Hgb 10.6 L Hct 33.5 L MCV 87.4 MCH 27.6 MCHC 31.6 L RDW 16.4 H Plt Count 143 D MPV 8.9 Neutrophils % 55.5 Lymphocytes % 26.7 D Monocytes % 13.2 H Eosinophils % 4.1 D Basophils % 0.5 Sodium 142 Potassium 5.9 H Chloride 110 H Carbon Dioxide 26 D Anion Gap 6 L BUN 39 H Creatinine 2.6 H Creat Clearance w eGFR 24.98 Random Glucose 72 L Calcium 8.7 Total Bilirubin 0.3 AST 35 D ALT 40 D Alkaline Phosphatase 137 H Total Protein 7.4 Albumin 3.3 L Urine Color Urine Appearance Urine pH Ur Specific [place] Urine Protein Urine Glucose (UA) Urine Ketones Urine Blood Urine Nitrite Urine Bilirubin Urine Urobilinogen Ur Leukocyte Esterase RPR Titer HIV 1&2 Antibody Screen HIV P24 Antigen LABS NOTED. - Treatment Hospital Course: Detox Protocol Followed, Detoxed Safely, Responded well, Discharged Condition Good Patient has Accepted a Rehab Referral to: PT WILL RETURN [facility] ([place], [place]). - Medication Discharge Medications: Ambulatory Orders Aspirin [ASA -] 81 mg PO DAILY 01/04/18 Tamsulosin HCl [Flomax] 0.4 mg PO DAILY 01/04/18 - Diagnosis (1) Methadone maintenance therapy patient Status: Chronic (2) Opioid dependence Status: Acute Qualifiers: Substance use status: uncomplicated Qualified Code(s): F11.20 - Opioid dependence, uncomplicated (3) Use of cane as ambulatory aid Status: Acute (4) Alcohol dependence with uncomplicated withdrawal Status: Acute (5) Arthritis Status: Acute (6) Frequent falls Status: Acute (7) Insomnia secondary to depression with anxiety Status: Acute (8) Left inguinal hernia Status: Chronic (9) BPH (benign prostatic hypertrophy) Status: Chronic (10) Uncomplicated sedative, hypnotic or anxiolytic withdrawal Status: Acute (11) Opiate dependence Status: Acute Qualifiers: Substance use status: with unspecified opioid-induced disorder Qualified Code(s): F11.29 - Opioid dependence with unspecified opioid-induced disorder (12) Substance induced mood disorder Status: Acute - AMA Did Patient Leave Against Medical Advice: No
== END 2018-01-10 11:55 | disposition home or self-care (01) | DRG 773 ==
LOC: YASAS 11:07 → Y3N 14:32
PROVIDERS: ADMIT Internal Medicine; ATTEND Internal Medicine
PROC: HZ2ZZZZ Detoxification Services for Substance Abuse Treatment (ICD-10-PCS; principal; 2018-01-04)
DX: F10.230 Alcohol dependence with withdrawal, uncomplicated (principal); F11.20 Opioid dependence, uncomplicated; F13.230 Sedative, hypnotic or anxiolytic dependence with withdrawal, uncomplicated; F17.210 Nicotine dependence, cigarettes, uncomplicated; F19.24 Other psychoactive substance dependence with psychoactive substance-induced mood disorder; F51.05 Insomnia due to other mental disorder; D64.9 Anemia, unspecified; E87.5 Hyperkalemia; I12.9 Hypertensive chronic kidney disease with stage 1 through stage 4 chronic kidney disease, or unspecified chronic kidney disease; I25.2 Old myocardial infarction; B18.2 Chronic viral hepatitis C; N18.3 Chronic kidney disease, stage 3 (moderate); N17.9 Acute kidney failure, unspecified; I95.9 Hypotension, unspecified; N40.0 Benign prostatic hyperplasia without lower urinary tract symptoms; K40.90 Unilateral inguinal hernia, without obstruction or gangrene, not specified as recurrent; Z99.89 Dependence on other enabling machines and devices; Z87.438 Personal history of other diseases of male genital organs
CPT/HCPCS: 36415; 71046-TC-FY; 80048; 80053; 81003; 85025; 85027; 86593; 87389; 93005; 93010

== ENCOUNTER 2020-07-26 16:39 | Inpatient (IN) | payer OTHER ==
[2020-07-26 17:55] VITALS: BMI 23.1
--- NOTE | 2020-07-26 18:30 | HP ---
CIWA Score - Admission Criteria OASAS Guidelines: Admission for Medically Managed Detox: Requires at least one of the followin. CIWA greater than 12 2. Seizures within the past 24 hours 3. Delirium tremens within the past 24 hours 4. Hallucinations within the past 24 hours 5. Acute intervention needed for co occurring medical disorder 6. Acute intervention needed for co occurring psychiatric disorder 7. Severe withdrawal that cannot be handled at a lower level of care (continued vomiting, continued diarrhea, abnormal vital signs) requiring intravenous medication and/or fluids 8. Admitting History and Physical - Past Medical History Cardiovascular: Yes: HTN Pulmonary: Yes: COPD Hepatobiliary: Yes: Hepatitis C Renal/: Yes: BPH Psych: Yes: Addictions - Past Surgical History Past Surgical History: Yes: None (Left ankle fracture repair) - Smoking History Smoking history: Current every day smoker Have you smoked in the past 12 months: Yes Aproximately how many cigarettes per day: 20 - Alcohol/Substance Use Hx Alcohol Use: Yes History of Substance Use: reports: Heroin - Social History ADL: Independent History of Recent Travel: No Admission [facility] Chief Complaint: Here for alcohol and heroin, and cocaine detox and I Allergies/Adverse Reactions: Allergies Allergy/AdvReac Type Severity Reaction Status Date / Time No Known Allergies Allergy Verified 01/04/18 14:11 Patient History - Patient Medical History Hx Anemia: Yes Hx Asthma: No Hx Chronic Obstructive Pulmonary Disease (COPD): No Hx Cancer: No Hx Cardiac Disorders: No (CHEST PAINS OLD [place]) Hx Congestive Heart Failure: No Hx Hypertension: Yes (NO MED) Hx Hypercholesterolemia: No Hx Pacemaker: No HX Cerebrovascular Accident: No Hx Seizures: No Hx Dementia: No Hx Diabetes: No Hx Gastrointestinal Disorders: No Hx Liver Disease: No Hx Genitourinary Disorders: No Hx Sexually Transmitted Disorders: Yes (GONORRHEA [place] YEARS AGO) Hx Renal Disease (ESRD): No Hx Thyroid Disease: No Hx Human Immunodeficiency Virus (HIV): No (negative "im ok"LAST 12/05) Hx Hepatitis C: Yes Hx Depression: No (DENIES) Hx Suicide Attempt: No (DENIES) Hx Bipolar Disorder: No Hx Schizophrenia: No - Patient Surgical History Past Surgical History: Yes Hx Orthopedic Surgery: Yes (compound fracture remote L ankle) Anesthesia Reaction: No - Smoking Cessation Smoking history: Current every day smoker Have you smoked in the past 12 months: Yes Aproximately how many cigarettes per day: 20 Cigars Per Day: 0 Hx Chewing Tobacco Use: No Admission Physical Exam BHS - Vital Signs Vital Signs: Vital Signs - 24 hr 07/26/20 17:53 Temperature 98.1 F Pulse Rate 98 H Respiratory 19 Rate Blood Pressure 125/76 Breathalyzer - Breathalyzer Breathalyzer: 0 Urine Drug Screen - Test Device Lot number: [id number] Expiration date: 01/23/22 - Control Is test valid?: Yes
--- NOTE | 2020-07-26 18:33 | HP ---
CIWA Score Nausea/Vomitin-No Nausea/No Vomiting Muscle Tremors: 4-Moderate,w/Arms Extend Anxiety: 4-Mod. Anxious/Guarded Agitation: 4-Moderately Restless Paroxysmal Sweats: 3 Orientation: 0-Oriented Tacttile Disturbances: 0-None Auditory Disturbances: 0-None Visual Disturbances: 0-None Headache: 0-None Present CIWA-Ar Total Score: 15 - Admission Criteria OASAS Guidelines: Admission for Medically Managed Detox: Requires at least one of the followin. CIWA greater than 12 2. Seizures within the past 24 hours 3. Delirium tremens within the past 24 hours 4. Hallucinations within the past 24 hours 5. Acute intervention needed for co occurring medical disorder 6. Acute intervention needed for co occurring psychiatric disorder 7. Severe withdrawal that cannot be handled at a lower level of care (continued vomiting, continued diarrhea, abnormal vital signs) requiring intravenous medication and/or fluids 8. Patient presents the following: CIWA greater than 12 Admission Criteria Met: Admission criteria met Admitting History and Physical - Past Medical History Cardiovascular: Yes: HTN Pulmonary: Yes: COPD Hepatobiliary: Yes: Hepatitis C Renal/: Yes: BPH Psych: Yes: Addictions - Past Surgical History Past Surgical History: Yes: None (Left ankle fracture repair) - Smoking History Smoking history: Current every day smoker Have you smoked in the past 12 months: Yes Aproximately how many cigarettes per day: 20 - Alcohol/Substance Use Hx Alcohol Use: Yes History of Substance Use: reports: Heroin - Social History ADL: Independent History of Recent Travel: No Admission ROS BHS - HPI Chief Complaint: Here to stop alcohol and cocaine use and begin to get my life in order. Allergies/Adverse Reactions: Allergies Allergy/AdvReac Type Severity Reaction Status Date / Time No Known Allergies Allergy Verified 07/26/20 20:29 History of Present Illness: 64 yo w/ alcohol withdrawal symptoms, seeking detox. MÓNICA: 0.0 UTox: + CORNELL/MTD/MOR Denies overdoses or seizures. PATIENT SENT TO [facility] ED VIA AMBULANCE FOR EVALUATION TO R/O CELLULITIS OR DVT. REPORT GIVEN TO DR. SHANKS. Heroin use disorder since teens. Currently on [facility] MMTP program and receiving Methadone 110 mg PO daily. Last medicated today. Alcohol use since age 11. Currently drinking 2 pints/day. Cocaine use since teens. 1 gm daily - nasally. Nicotine use since age 11. Smokes 1 PPD. PMHx: Heart attack years ago, BBB; Hx: PPD+, Skin changes BLE x years MHHx: Denies thoughts of harming self or others. SHx; Homeless. Unemployed. Search Terms: Luigi Jiménez, 1955 Search Date: 07/26/2020 18:45:38 PM The Drug Utilization Report below displays all of the controlled substance prescriptions, if any, that your patient has filled in the last twelve months. The information displayed on this report is compiled from pharmacy submissions to the Department, and accurately reflects the information as submitted by the pharmacies. This report was requested by: Iveth Barakat | Reference #: [id number] There are no results for the search terms that you entered. Exam Limitations: No Limitations - Ebola screening Have you traveled outside of the country in the last 21 days: No (Denies COVID exposure) Have you had contact with anyone from an Ebola affected area: No Have you been sick,other than usual withdrawal symptoms: No Do you have a fever: No - Review of Systems Constitutional: Chills, Diaphoresis, Changes in sleep (Difficulty and staying asleep) EENT: reports: Blurred Vision, Dental Problems (No teeth) Respiratory: reports: No Symptoms reported Cardiac: reports: No Symptoms Reported GI: reports: Indigestion : reports: No Symptoms Reported Musculoskeletal: reports: No Symptoms Reported Integumentary: reports: Other (Legs with dry skin (R) and (L) swollen, sore 2 months) Neuro: reports: No Symptoms reported Endocrine: reports: Increased Thirst Hematology: reports: No Symptoms Reported Psychiatric: reports: Orientated x3, Agitated, Anxious Patient History - Patient Medical History Hx Anemia: Yes Hx Asthma: No Hx Chronic Obstructive Pulmonary Disease (COPD): No Hx Cancer: No Hx Cardiac Disorders: No (CHEST PAINS [place]LD [place]) Hx Congestive Heart Failure: No Hx Hypertension: Yes (NO MED) Hx Hypercholesterolemia: No Hx Pacemaker: No HX Cerebrovascular Accident: No Hx Seizures: No Hx Dementia: No Hx Diabetes: No Hx Gastrointestinal Disorders: No Hx Liver Disease: No Hx Genitourinary Disorders: No Hx Sexually Transmitted Disorders: Yes (GONORRHEA [place] YEARS AGO) Hx Renal Disease (ESRD): No Hx Thyroid Disease: No Hx Human Immunodeficiency Virus (HIV): No (negative "im ok"LAST 12/05) Hx Hepatitis C: Yes Hx Depression: No (DENIES) Hx Suicide Attempt: No (DENIES) Hx Bipolar Disorder: No Hx Schizophrenia: No - Patient Surgical History Past Surgical History: Yes Hx Orthopedic Surgery: Yes (compound fracture remote L ankle) Anesthesia Reaction: No - PPD History Previous Implant?: Yes Documented Results: Positive w/o proof Implanted On Prior R Admission?: Yes PPD to be Administered?: No - Smoking Cessation Smoking history: Current every day smoker Have you smoked in the past 12 months: Yes Aproximately how many cigarettes per day: 20 Cigars Per Day: 0 Hx Chewing Tobacco Use: No Initiated information on smoking cessation: Yes 'Breaking Loose' booklet given: 07/26/20 - Substance & Tx. History Hx Alcohol Use: Yes Hx Substance Use: Yes Substance Use Type: Alcohol, Cocaine, Heroin Hx Substance Use Treatment: Yes (detox, rehab, MMTP) Admission Physical Exam BHS - Vital Signs Vital Signs: Vital Signs - 24 hr 07/26/20 17:53 Temperature 98.1 F Pulse Rate 98 H Respiratory 19 Rate Blood Pressure 125/76 - Physical General Appearance: Yes: Nourished, Disheveled, Mild Distress, Tremorous, Irritable, Anxious HEENTM: Yes: EOMI, Hearing grossly Normal, Normocephalic, Normal Voice, COCO, Pharynx Normal Respiratory: Yes: Lungs Clear, Normal Breath Sounds, No Respiratory Distress Neck: Yes: No masses,lesions,Nodules, Supple Breast: Yes: Breast Exam Deferred Cardiology: Yes: Regular Rhythm, Regular Rate, S1, S2 Abdominal: Yes: Normal Bowel Sounds, Non Tender, Flat, Soft Genitourinary: Yes: Within Normal Limits Back: Yes: Normal Inspection Extremities: Yes: Tremors (Mild), Calf Tenderness ((L)) Neurological: Yes: Motor Strength 5/5, Normal Response Integumentary: Yes: Dry, Warm, Other (Thickened, cratered, dry elephant-like skin skin (R); (L) leg calf area w/ increased erythema, warmth and tenderness. Bilateral swelling; Old crusted gash (R) sloan area approx 4 cm.) Lymphatic: Yes: Within Normal Limits - Diagnostic (1) Skin abnormalities Current Visit: Yes Status: Chronic Comment: BLE (2) Tenderness of left calf Current Visit: Yes Status: Acute (3) Alcohol dependence with uncomplicated withdrawal Current Visit: Yes Status: Acute (4) Use of cane as ambulatory aid Current Visit: Yes Status: Chronic (5) BPH (benign prostatic hypertrophy) Current Visit: Yes Status: Chronic (6) Methadone maintenance therapy patient Current Visit: Yes Status: Chronic Cleared for Admission BHS - Detox or Rehab [facility] Level of Care: Medically Managed Detox Regimen/Protocol: Librium Claeared for Rehab Admission: No Breathalyzer - Breathalyzer Breathalyzer: 0 Urine Drug Screen - Test Device Lot number: [id number] Expiration date: 01/23/22 - Control Is test valid?: Yes Inpatient Rehab Admission - Rehab Decision to Admit Inpatient rehab admission?: No
--- NOTE | 2020-07-26 18:40 | BHS.RME ---
Substance Use & Tx History - Substance Use History Alcohol Substance amount: 2 pints Frequency of use: Daily Substance route: Oral Date of Last Use: 07/26/20 Nicotine Substance amount: 20 cig Frequency of use: Daily Substance route: Oral Date of Last Use: 07/26/20 Cocaine- Powder Substance amount: 1 gm Frequency of use: Daily Substance route: Inhalation (ex: sniffing or snorting) Date of Last Use: 07/25/20 - Last Treatment Date of last treatment: 06/2020 Where was last treatment: ER (For (R) leg eval - states 'cleared") Physical/Psych/Mental Status - Behavior General Behavior: Increased activity (restlessness, agitation) Eye Contact: Normal - Physical Health Problems Is patient presently having any pain?: Yes ((L) leg) Does patient presently have any injuries (include location): No Does patient currently have a fever: No CIWA Nausea/Vomitin-No Nausea/No Vomiting Muscle Tremors: 4-Moderate,w/Arms Extend Anxiety: 4-Mod. Anxious/Guarded Agitation: 4-Moderately Restless Paroxysmal Sweats: 3 Orientation: 0-Oriented Tacttile Disturbances: 0-None Auditory Disturbances: 0-None Visual Disturbances: 0-None Headache: 0-None Present CIWA-Ar Total Score: 15 Treatment Recommendation - Level of Care Level of Care: Acute Medical (Send to ED for evaluation of warmth, swelling, and tenderness of (L) lower extremity. (R) loewer extremity w/ elephant skin texture. Report given to Dr. Covington.)
--- OUTSIDE RECORDS SUMMARY | 2020-07-26 19:33 | XMS ---
:1955 Author [facility] Support Name Relationship Address Phone UE Unavailable Unavailable Unavailable TRACI RAMIREZ SISTER [id number] [facility] [place] [address] Re-disclosure Warning The records that you are about to access may contain information from federally- assisted alcohol or drug abuse programs. If such information is present, then the following federally mandated warning applies: This information has been disclosed to you from records protected by federal confidentiality rules (42 CFR part 2). The federal rules prohibit you from making any further disclosure of this information unless further disclosure is expressly permitted by the written consent of the person to whom it pertains or as otherwise permitted by 42 CFR part 2. A general authorization for the release of medical or other information is NOT sufficient for this purpose. The Federal rules restrict any use of the information to criminally investigate or prosecute any alcohol or drug abuse patient.The records that you are about to access may contain highly sensitive health information, the redisclosure of which is protected by Article 27-F of the [facility] Public Health law. If you continue you may haveaccess to information: Regarding HIV / AIDS; Provided by facilities licensed or operated by the [facility] Office of Mental Health; or Provided by the [facility] Office for People With Developmental Disabilities. If such information is present, then the following [facility] mandated warning applies: This information has been disclosed to you from confidential records which are protected by state law. State law prohibits you from making any further disclosure of this information without the specific written consent of the person to whom it pertains, or as otherwise permitted by law. Any unauthorized further disclosure in violation of state law may result in a fine or shelter sentence or both. A general authorization for the release of medical or other information is NOT sufficient authorization for further disclosure. Insurance Providers Payer name Policy type Policy ID Covered Covered republican's Policy P derrick / Coverage republican ID relationship to [employer] ormation type garcia MEDICAID [id number] SP [id number] MEDICARE [id number] SP [id number]
--- NOTE | 2020-07-27 01:51 | PN ---
ROBIN Progress Note Note: Patient was admitted by Ms. Iveth Barakat [facility]ON[facility] DIVER and transferred to ER to evaluate left leg cellulitis. His left leg is swollen, painful with pitting edema and his right leg has thickened, lichinified skin changes and all toenails have onychomycosis. In the emergency room, patient refused IV intervention and he also refused admission to the hospital. As per Dr. Adria Cochran patient was sent back to [facility] as per request because he refused admission to the Hospital and he was accepted back by Ms. Yuval Lazaro [employer] DIVER. Spoke to Dr. Erin Munoz and she states that patient wanted to return to detox and he is refusing admission to the hospital, stating that if they try to admit him, he will sign out and walk back to [facility]. However his duplex vascul US of the left leg indicates that: -DVT noted throughout length of femoral and popliteal veins Patient is to initiate the following medication: - Elquis 10mg BID for 7 days followed by 5mg BID until evaluation by PCP/neonatal doctor - 500mg keflex BID for 7 days Vital Signs Temperature 97.7 F 07/27/20 02:00 Pulse Rate 72 07/27/20 02:00 Respiratory Rate 16 07/27/20 02:00 Blood Pressure 117/70 07/27/20 02:00 O2 Sat by Pulse Oximetry (%) 95 07/27/20 02:00 Action : - Continue detox - Initiate Elquis 10mg BID for 7 days followed by 5mg BID until evaluation by PCP/neonatal doctor - Initiate Keflex 500mg BID for 7 days - Maintain fall and safety precaution
[2020-07-27] MEDS ORDERED: METHOCARBAMOL 500 MG TABLET PO PRN (02:18)
[2020-07-27] MEDS ORDERED: MAG HYDROX/AL HYDROX/SIMETH 30 ML UNIT-DOSE CUP PO PRN (02:18)
[2020-07-27] MEDS ORDERED: BISMUTH SUBSALICYLATE 524 MG/30 ML UD PO PRN (02:18)
[2020-07-27] MEDS ORDERED: NICOTINE POLACRILEX 2 MG GUM BUC PRN (02:18)
[2020-07-27] MEDS ORDERED: chlordiazePOXIDE HCL 25 MG CAPSULE PO PRN (02:18)
[2020-07-27] MEDS ORDERED: ONDANSETRON *ODT* 4 MG TABLET SL PRN (02:18)
[2020-07-27] MEDS ORDERED: MENTHOL/PHENOL 1 EACH UD MM PRN (02:18)
[2020-07-27] MEDS ORDERED: MAGNESIUM HYDROX 2400MG/30ML ORAL SUSPENSION 30 ML CUP PO PRN (02:18)
[2020-07-27] MEDS ORDERED: ACETAMINOPHEN 325 MG TABLET (FP) PO PRN ×2 (02:18)
[2020-07-27] MEDS ORDERED: IBUPROFEN 400 MG TABLET (FP) PO PRN (02:18)
[2020-07-27] MEDS ORDERED: MAGNESIUM CITRATE 300 ML BOTTLE PO PRN (02:18)
[2020-07-27] MEDS: chlordiazePOXIDE HCL 25 MG CAPSULE PO SCH ×4 (07:13→23:17)
[2020-07-27] MEDS ORDERED: APIXABAN 5 MG TABLET PO SCH (10:00)
[2020-07-27] MEDS: CEPHALEXIN MONOHYDRATE 500 MG CAPSULE (UD) PO SCH ×2 (10:53→23:17)
[2020-07-27] MEDS: PRENATAL VITAMINS W/ FOLIC ACID TABLET (FP) PO SCH (10:53)
[2020-07-27] MEDS: TAMSULOSIN HCL 0.4 MG CAP PO SCH (10:53)
--- NOTE | 2020-07-27 11:02 | PN ---
[facility] CIWA - CIWA Score Nausea/Vomitin-No Nausea/No Vomiting Muscle Tremors: None Anxiety: 3 Agitation: 0-Normal Activity Paroxysmal Sweats: 3 Orientation: 0-Oriented Tacttile Disturbances: 0-None Auditory Disturbances: 0-None Visual Disturbances: 0-None Headache: 2-Mild CIWA-Ar Total Score: 8 [facility] Progress Note (SOAP) Subjective: c/o sweats, anxiety, headache, and shakes. Objective: 07/27/20 11:01 Vital Signs 07/27/20 07/27/20 07:04 09:23 Temperature 98.2 F 98.7 F Pulse Rate 67 72 Respiratory 18 18 Rate Blood Pressure 108/64 110/77 O2 Sat by Pulse 95 Oximetry (%) Assessment: 07/27/20 11:01 AOX3, in no acute respiratory distress. Full ROM, ambulating in the unit. Withdrawal symptoms. B/l le lymphedema. 07/27/20 11:02 Plan: continue detox.
[2020-07-27] MEDS ORDERED: PNEUMOC 13-VAL CONJ-DIP CRM/PF 0.5 ML DISP.SYRIN IM ONE (12:00)
[2020-07-27] MEDS ORDERED: METHADONE HCL 10 MG TABLET PO SCH (13:00)
[2020-07-27] MEDS ORDERED: METHADONE HCL 10 MG TABLET ONE (13:21)
[2020-07-27] MEDS ORDERED: METHADONE HCL 40 MG DISPERSABLE TABLET ONE (13:22)
[2020-07-27] MEDS: METHADONE 80 MG, METHADONE 30 MG PO SCH (13:24)
[2020-07-27] MEDS: APIXABAN 5 MG TABLET PO SCH ×2 (13:24→23:14)
[2020-07-27] MEDS: NICOTINE 14 MG/24 HOURS TOPICAL PATCH TD SCH (13:26)
[2020-07-27] MEDS: THIAMINE HCL 100 MG TABLET (FP) PO SCH (23:17)
[2020-07-27] MEDS: MELATONIN 5 MG TABLETS PO SCH (23:18)
[2020-07-28] MEDS ORDERED: METHADONE HCL 40 MG DISPERSABLE TABLET ONE (04:34)
[2020-07-28] MEDS ORDERED: METHADONE HCL 10 MG TABLET ONE (04:34)
[2020-07-28] MEDS: chlordiazePOXIDE HCL 25 MG CAPSULE PO SCH ×4 (05:43→22:46)
[2020-07-28] MEDS: METHADONE 80 MG, METHADONE 30 MG PO SCH (05:43)
--- NOTE | 2020-07-28 07:12 | EKG ---
Test Reason : Blood Pressure : / mmHG Vent. Rate : 067 BPM Atrial Rate : 067 BPM P-R Int : 146 ms QRS Dur : 138 ms QT Int : 438 ms P-R-T Axes : 062 -78 001 degrees QTc Int : 462 ms NORMAL SINUS RHYTHM POSSIBLE LEFT ATRIAL ENLARGEMENT RIGHT BUNDLE BRANCH BLOCK LEFT ANTERIOR FASCICULAR BLOCK BIFASCICULAR BLOCK ABNORMAL ECG WHEN COMPARED WITH ECG OF 27-JUL-2020 06:09, NO SIGNIFICANT CHANGE WAS FOUND Confirmed by MEGHAN VELARDE MD ([id number]) on 07/28/2020 7:12:07 AM Referred By: Confirmed By:MEGHAN VELARDE MD
--- NOTE | 2020-07-28 07:13 | EKG ---
Test Reason : Blood Pressure : / mmHG Vent. Rate : 065 BPM Atrial Rate : 065 BPM P-R Int : 160 ms QRS Dur : 132 ms QT Int : 440 ms P-R-T Axes : 061 -73 030 degrees QTc Int : 457 ms NORMAL SINUS RHYTHM POSSIBLE LEFT ATRIAL ENLARGEMENT RIGHT BUNDLE BRANCH BLOCK LEFT ANTERIOR FASCICULAR BLOCK BIFASCICULAR BLOCK ABNORMAL ECG WHEN COMPARED WITH ECG OF 04-JAN-2018 17:10, NO SIGNIFICANT CHANGE WAS FOUND Confirmed by MEGHAN VELARDE MD ([id number]) on 07/28/2020 7:12:53 AM Referred By: Confirmed By:MEGHAN VELARDE MD
[2020-07-28 10:19] LABS: HEMATOCRIT 28.9 % (35.4-49); HEMOGLOBIN 8.9 GM/dL (11.7-16.9); MEAN CELL VOLUME 90.5 fl (80-96); MEAN PLT VOLUME 8.7 fl (7.5-11.1); PLATELET COUNT 217 K/MM3 (134-434); RBC 3.19 M/mm3 (4.00-5.60); RDW 17.7 % (11.9-15.9); WHITE BLOOD COUNT 5.4 K/mm3 (4.0-10.0)
[2020-07-28 10:28] LABS: ALBUMIN 2.8 g/dl (3.4-5.0); BILIRUBIN,TOTAL 0.3 mg/dL (0.2-1); BLOOD UREA NITROGEN 27.3 mg/dL (7-18); CALCIUM 8.8 mg/dL (8.5-10.1); CREATININE 1.7 mg/dL (0.55-1.3); POTASSIUM 5.5 mmol/L (3.5-5.1); TOT PROT 7.6 g/dl (6.4-8.2)
[2020-07-28] MEDS: CEPHALEXIN MONOHYDRATE 500 MG CAPSULE (UD) PO SCH ×2 (10:43→22:46)
[2020-07-28] MEDS: TAMSULOSIN HCL 0.4 MG CAP PO SCH (10:43)
[2020-07-28] MEDS: APIXABAN 5 MG TABLET PO SCH ×2 (10:43→22:46)
[2020-07-28] MEDS: PRENATAL VITAMINS W/ FOLIC ACID TABLET (FP) PO SCH (10:43)
[2020-07-28] MEDS: NICOTINE 14 MG/24 HOURS TOPICAL PATCH TD SCH (10:44)
--- NOTE | 2020-07-28 12:11 | PN ---
[facility] CIWA - CIWA Score Nausea/Vomitin-Mild Nausea/No Vomiting Muscle Tremors: 1-None Visible, but Tram Anxiety: 1-Mildly Anxious Agitation: 1-Slight > Activity Paroxysmal Sweats: 1-Minimal Palms Moist Orientation: 0-Oriented Tacttile Disturbances: 0-None Auditory Disturbances: 0-None Visual Disturbances: 1-Very Mild Sensitivity Headache: 1-Very Mild CIWA-Ar Total Score: 7 S Progress Note (SOAP) Subjective: 64 years old male was admitted on 07/26/20 for alcohol withdrawal sx management treating with librium detox regiment ambulating with cane from bed to bathroom slow steady received methadone 110 mg po today resting in bed "I am sleepy" left leg celulitis treated with keflex mr cenra tolerating keflex well encourage warm compress to left leg and elevation of left leg Objective: 07/28/20 12:11 Vital Signs - 24 hr 07/27/20 07/27/20 07/27/20 12:53 16:47 20:51 Temperature 98 F 97.5 F L 98.2 F Pulse Rate 71 73 85 Respiratory 18 18 18 Rate Blood Pressure 104/58 L 119/65 120/93 O2 Sat by Pulse 98 Oximetry (%) 07/28/20 07/28/20 07:04 08:42 Temperature 97.7 F 98.2 F Pulse Rate 106 H 71 Respiratory 20 18 Rate Blood Pressure 109/75 109/68 O2 Sat by Pulse 100 Oximetry (%) Laboratory Tests 07/28/20 07/28/20 07:35 07:35 WBC 5.4 RBC 3.19 L Hgb 8.9 L Hct 28.9 L MCV 90.5 MCH 28.0 MCHC 31.0 L RDW 17.7 H Plt Count 217 D MPV 8.7 Sodium 139 Potassium 5.5 H Chloride 108 H Carbon Dioxide 25 Anion Gap 6 L BUN 27.3 H Creatinine 1.7 H Est GFR (CKD-EPI)AfAm 47.65 Est GFR (CKD-EPI)NonAf 41.11 Random Glucose 69 L Calcium 8.8 Total Bilirubin 0.3 AST 14 L ALT 18 Alkaline Phosphatase 89 Total Protein 7.6 Albumin 2.8 L potassium elevation repeat K+ Assessment: 07/28/20 12:13 alcohol withdrawal Plan: librium regiment
[2020-07-28] MEDS: THIAMINE HCL 100 MG TABLET (FP) PO SCH (22:46)
[2020-07-28] MEDS: MELATONIN 5 MG TABLETS PO SCH (22:47)
[2020-07-29] MEDS ORDERED: chlordiazePOXIDE HCL 10 MG CAPSULE PO PRN
[2020-07-29] MEDS ORDERED: METHADONE HCL 10 MG TABLET ONE (04:37)
[2020-07-29] MEDS ORDERED: METHADONE HCL 40 MG DISPERSABLE TABLET ONE (04:38)
[2020-07-29] MEDS: chlordiazePOXIDE HCL 10 MG CAPSULE PO SCH ×4 (07:04→23:10)
--- NOTE | 2020-07-29 09:11 | PN ---
S CIWA - CIWA Score Nausea/Vomitin-Mild Nausea/No Vomiting Muscle Tremors: 2 Anxiety: 2 Agitation: 2 Paroxysmal Sweats: No Perspiration Orientation: 0-Oriented Tacttile Disturbances: 1-Very Mild Itch/Numbness Auditory Disturbances: 0-None Visual Disturbances: 0-None Headache: 1-Very Mild CIWA-Ar Total Score: 9 BHS Progress Note (SOAP) Subjective: alert,irritable,anxious,interrupted sleep,aching pain in body,both legs Objective: 07/29/20 10:52 Vital Signs Temperature 97.7 F 07/29/20 06:51 Pulse Rate 73 07/29/20 06:51 Respiratory Rate 18 07/29/20 06:51 Blood Pressure 104/69 07/29/20 06:51 O2 Sat by Pulse Oximetry (%) 97 07/29/20 06:51 Assessment: 07/29/20 10:53 withdrawal symptom 07/29/20 11:03 edema of both legs,no erythema on eliquis 10 mgs po bid for dvt left leg keflex 500 mgs po bid for cellulitis Plan: continue detox librium regimen,repeat cbc,bmp in am,close monitoring,continue methadone 110 mgs daily maintenance,fall precaution
[2020-07-29] MEDS: NICOTINE 14 MG/24 HOURS TOPICAL PATCH TD SCH (10:21)
[2020-07-29] MEDS: APIXABAN 5 MG TABLET PO SCH ×2 (10:22→23:10)
[2020-07-29] MEDS: METHADONE 80 MG, METHADONE 30 MG PO SCH (10:22)
[2020-07-29] MEDS: PRENATAL VITAMINS W/ FOLIC ACID TABLET (FP) PO SCH (10:22)
[2020-07-29] MEDS: TAMSULOSIN HCL 0.4 MG CAP PO SCH (10:22)
[2020-07-29] MEDS: CEPHALEXIN MONOHYDRATE 500 MG CAPSULE (UD) PO SCH ×2 (10:22→23:10)
[2020-07-29] MEDS: THIAMINE HCL 100 MG TABLET (FP) PO SCH (23:10)
[2020-07-29] MEDS: MELATONIN 5 MG TABLETS PO SCH (23:10)
[2020-07-30] MEDS ORDERED: METHADONE HCL 40 MG DISPERSABLE TABLET ONE (03:07)
[2020-07-30] MEDS ORDERED: METHADONE HCL 10 MG TABLET ONE (03:07)
[2020-07-30] MEDS: METHADONE 80 MG, METHADONE 30 MG PO SCH (06:44)
[2020-07-30] MEDS: chlordiazePOXIDE HCL 10 MG CAPSULE PO SCH ×2 (06:45→18:25)
--- NOTE | 2020-07-30 09:00 | PN ---
S CIWA - CIWA Score Nausea/Vomitin-Mild Nausea/No Vomiting Muscle Tremors: 2 Anxiety: 2 Agitation: 2 Paroxysmal Sweats: No Perspiration Orientation: 0-Oriented Tacttile Disturbances: 0-None Auditory Disturbances: 0-None Visual Disturbances: 0-None Headache: 1-Very Mild CIWA-Ar Total Score: 8 BHS Progress Note (SOAP) Subjective: alert,irritable,anxious,interrupted sleep,aching pain,chronic edema both legs,no erythema Objective: 07/30/20 11:38 Vital Signs Temperature 97.3 F L 07/30/20 08:59 Pulse Rate 79 07/30/20 08:59 Respiratory Rate 18 07/30/20 08:59 Blood Pressure 108/71 07/30/20 08:59 O2 Sat by Pulse Oximetry (%) 97 07/30/20 06:26 repeat cbc,bmp,inr pending Assessment: 07/30/20 11:39 withdrawal symptom Plan: continue detox librium regimen,continue eliquis 10 mgs po bid for dvt of left leg,continue keflex 500 mgs po bid,continue methadone 110 mgs po daily maintenance, discharge in am
[2020-07-30] MEDS: APIXABAN 5 MG TABLET PO SCH ×2 (11:30→22:53)
[2020-07-30] MEDS: TAMSULOSIN HCL 0.4 MG CAP PO SCH (11:30)
[2020-07-30] MEDS: PRENATAL VITAMINS W/ FOLIC ACID TABLET (FP) PO SCH (11:30)
[2020-07-30] MEDS: NICOTINE 14 MG/24 HOURS TOPICAL PATCH TD SCH (11:30)
[2020-07-30] MEDS: CEPHALEXIN MONOHYDRATE 500 MG CAPSULE (UD) PO SCH ×2 (11:30→22:53)
[2020-07-30 11:59] LABS: BASO % 0.4 % (0-2.0); EOS % 4.8 % (0-4.5); HEMATOCRIT 26.8 % (35.4-49); HEMOGLOBIN 8.3 GM/dL (11.7-16.9); LYMPH % 20.1 % (8-40); MCH 28.1 pg (25.7-33.7); MCHC 31.1 g/dl (32.0-35.9); MEAN CELL VOLUME 90.1 fl (80-96); MEAN PLT VOLUME 8.1 fl (7.5-11.1); MONO % 8.8 % (3.8-10.2); NEUT % 65.9 % (42.8-82.8); PLATELET COUNT 199 K/MM3 (134-434); RBC 2.97 M/mm3 (4.00-5.60); RDW 17.8 % (11.9-15.9); WHITE BLOOD COUNT 6.4 K/mm3 (4.0-10.0)
[2020-07-30 12:12] LABS: INR 1.15 (0.83-1.09); PROTHROMBIN TIME (PATIENT) 13.5 SEC (9.7-13.0)
[2020-07-30 14:06] LABS: CALCIUM 9.1 mg/dL (8.5-10.1); CREATININE 1.8 mg/dL (0.55-1.3); POTASSIUM 5.9 mmol/L (3.5-5.1)
[2020-07-30] MEDS: MELATONIN 5 MG TABLETS PO SCH (22:54)
[2020-07-30] MEDS: THIAMINE HCL 100 MG TABLET (FP) PO SCH (22:54)
[2020-07-31] MEDS ORDERED: METHADONE HCL 40 MG DISPERSABLE TABLET ONE ×2 (04:41→09:26)
[2020-07-31] MEDS ORDERED: METHADONE HCL 10 MG TABLET ONE ×2 (04:41→09:25)
[2020-07-31] MEDS ORDERED: chlordiazePOXIDE HCL 10 MG CAPSULE PO ONE (05:00)
[2020-07-31] MEDS ORDERED: SODIUM POLYSTYRENE SULFONATE 15 GM/60 ML BOTTLE PO ONE (08:11)
[2020-07-31 09:13] VITALS: BP 99/63; PULSE 89; TEMP 98.4
[2020-07-31] MEDS ORDERED: FERROUS SO4 325 MG TABLET (FP) PO SCH (10:00)
[2020-07-31] MEDS ORDERED: BACITRACIN 0.9 GM PACKET TP SCH (10:00)
--- NOTE | 2020-07-31 11:49 | PN ---
[facility] CIWA - CIWA Score Nausea/Vomitin-No Nausea/No Vomiting Muscle Tremors: None Anxiety: 1-Mildly Anxious Agitation: 0-Normal Activity Paroxysmal Sweats: No Perspiration Orientation: 0-Oriented Tacttile Disturbances: 0-None Auditory Disturbances: 0-None Visual Disturbances: 0-None Headache: 0-None Present CIWA-Ar Total Score: 1 S Progress Note (SOAP) Subjective: alert,anxious Objective: 07/31/20 11:44 Vital Signs Temperature 98.4 F 07/31/20 08:47 Pulse Rate 89 07/31/20 08:47 Respiratory Rate 18 07/31/20 08:47 Blood Pressure 99/63 07/31/20 08:47 O2 Sat by Pulse Oximetry (%) 99 07/31/20 06:24 07/31/20 11:44 Abnormal Lab Results 07/30/20 07/30/20 07/30/20 07:00 07:00 07:30 RBC 2.97 L Hgb 8.3 L Hct 26.8 L MCHC 31.1 L RDW 17.8 H Eosinophils % 4.8 H PT with INR 13.50 H INR 1.15 H Potassium 5.9 H Chloride 108 H Anion Gap 3 L BUN 32.0 H Creatinine 1.8 H Random Glucose 65 L r/o renal insufficiency kaexylate 30 grams po given Assessment: 07/31/20 11:46 detox completed,no withdrawal symptom Plan: patient completed detox ,concerning about renal insufficiency,bun 32,creatinine 1.8,k 5.9 hyperkalemia dvt left leg thrombus seen in femoral and popliteal vein on 07/26/20 done at [facility] patient completed detox to er for evaluation and treatment endorsed to Dr Prado patient will be transported to [facility] by [facility]
[2020-07-31] MEDS: METHADONE 80 MG, METHADONE 30 MG PO SCH (11:52)
[2020-07-31] MEDS: APIXABAN 5 MG TABLET PO SCH (11:55)
[2020-07-31] MEDS: TAMSULOSIN HCL 0.4 MG CAP PO SCH (11:56)
[2020-07-31] MEDS: CEPHALEXIN MONOHYDRATE 500 MG CAPSULE (UD) PO SCH (11:57)
[2020-07-31] MEDS: NICOTINE 14 MG/24 HOURS TOPICAL PATCH TD SCH (12:00)
[2020-07-31] MEDS: PRENATAL VITAMINS W/ FOLIC ACID TABLET (FP) PO SCH (12:03)
--- NOTE | 2020-07-31 12:09 | DS ---
[facility] Detox Discharge Summary Admission Date: 07/26/20 Discharge Date: 07/31/20 - History Present History: Alcohol Dependence, MMTP Additional Comments: alert,oriented x 3 lung clear less edema of legs detox completed concerning hyperkalemia,renal insufficiency,on eliquis 10 mgs po bid recieved kayexlate 30 gram po once patient need to go to er for evaluation and treatment endorsed to Pertinent Past History: bph hypertension edema both legs cellulitis anemia - Physical Exam Results Vital Signs: Vital Signs Temperature 98.4 F 07/31/20 08:47 Pulse Rate 89 07/31/20 08:47 Respiratory Rate 18 07/31/20 08:47 Blood Pressure 99/63 07/31/20 08:47 O2 Sat by Pulse Oximetry (%) 99 07/31/20 06:24 Pertinent Admission Physical Exam Findings: withdrawal signs and symptom Laboratory Last Values WBC 6.4 K/mm3 (4.0-10.0) 07/30/20 07:00 RBC 2.97 M/mm3 (4.00-5.60) L 07/30/20 07:00 Hgb 8.3 GM/dL (11.7-16.9) L 07/30/20 07:00 Hct 26.8 % (35.4-49) L 07/30/20 07:00 MCV 90.1 fl (80-96) 07/30/20 07:00 MCH 28.1 pg (25.7-33.7) 07/30/20 07:00 MCHC 31.1 g/dl (32.0-35.9) L 07/30/20 07:00 RDW 17.8 % (11.9-15.9) H 07/30/20 07:00 Plt Count 199 K/MM3 (134-434) 07/30/20 07:00 MPV 8.1 fl (7.5-11.1) 07/30/20 07:00 Absolute Neuts (auto) 4.2 K/mm3 (1.5-8.0) 07/30/20 07:00 Neutrophils % 65.9 % (42.8-82.8) 07/30/20 07:00 Lymphocytes % 20.1 % (8-40) D 07/30/20 07:00 Monocytes % 8.8 % (3.8-10.2) 07/30/20 07:00 Eosinophils % 4.8 % (0-4.5) H 07/30/20 07:00 Basophils % 0.4 % (0-2.0) 07/30/20 07:00 Nucleated RBC % 0 % (0-0) 07/30/20 07:00 PT with INR 13.50 SEC (9.7-13.0) H 07/30/20 07:00 INR 1.15 (0.83-1.09) H 07/30/20 07:00 Sodium 140 mmol/L (136-145) 07/30/20 07:30 Potassium 5.9 mmol/L (3.5-5.1) H 07/30/20 07:30 Chloride 108 mmol/L (98-107) H 07/30/20 07:30 Carbon Dioxide 29 mmol/L (21-32) 07/30/20 07:30 Anion Gap 3 MMOL/L (8-16) L 07/30/20 07:30 BUN 32.0 mg/dL (7-18) H 07/30/20 07:30 Creatinine 1.8 mg/dL (0.55-1.3) H 07/30/20 07:30 Est GFR (CKD-EPI)AfAm 44.46 07/30/20 07:30 Est GFR (CKD-EPI)NonAf 38.36 07/30/20 07:30 Random Glucose 65 mg/dL (74-106) L 07/30/20 07:30 Calcium 9.1 mg/dL (8.5-10.1) 07/30/20 07:30 Total Bilirubin 0.3 mg/dL (0.2-1) 07/28/20 07:35 AST 14 U/L (15-37) L 07/28/20 07:35 ALT 18 U/L (13-61) 07/28/20 07:35 Alkaline Phosphatase 89 U/L (45-117) 07/28/20 07:35 Total Protein 7.6 g/dl (6.4-8.2) 07/28/20 07:35 Albumin 2.8 g/dl (3.4-5.0) L 07/28/20 07:35 Syphilis Serology Non-reactive (NONREACTIVE) 07/27/20 02:18 COVID-19 (DORIAN) Not detected (Not Detected) 07/27/20 08:15 - Treatment Hospital Course: Detox Protocol Followed, Detoxed Safely, Responded well - Medication Discharge Medications: Ambulatory Orders Aspirin [ASA -] 81 mg PO DAILY 01/04/18 Tamsulosin HCl [Flomax] 0.4 mg PO DAILY 01/04/18 - Diagnosis (1) Left leg DVT Current Visit: Yes Status: Acute (2) Alcohol dependence with uncomplicated withdrawal Current Visit: Yes Status: Acute (3) BPH (benign prostatic hypertrophy) Current Visit: Yes Status: Chronic (4) Hypertension Current Visit: Yes Status: Chronic Qualifiers: Hypertension type: essential hypertension Qualified Code(s): I10 - Essential (primary) hypertension (5) Methadone maintenance therapy patient Current Visit: Yes Status: Chronic (6) Use of cane as ambulatory aid Current Visit: Yes Status: Chronic (7) Cellulitis Current Visit: No Status: Acute (8) Renal insufficiency Current Visit: Yes Status: Acute (9) Hyperkalemia Current Visit: Yes Status: Acute - AMA Did Patient Leave Against Medical Advice: No
== END 2020-07-31 12:20 | disposition short-term general hospital (02) | DRG 897 ==
LOC: YASAS 16:39 → Y3N 19:30
PROVIDERS: ADMIT Allergy & Immunology; ATTEND Allergy & Immunology
PROC: HZ2ZZZZ Detoxification Services for Substance Abuse Treatment (ICD-10-PCS; principal; 2020-07-26)
DX: F10.230 Alcohol dependence with withdrawal, uncomplicated (principal); F11.20 Opioid dependence, uncomplicated; F14.20 Cocaine dependence, uncomplicated; L03.116 Cellulitis of left lower limb; I82.432 Acute embolism and thrombosis of left popliteal vein; I82.412 Acute embolism and thrombosis of left femoral vein; F17.210 Nicotine dependence, cigarettes, uncomplicated; D64.9 Anemia, unspecified; I10 Essential (primary) hypertension; J44.9 Chronic obstructive pulmonary disease, unspecified; E87.5 Hyperkalemia; N28.9 Disorder of kidney and ureter, unspecified; R23.8 Other skin changes; R60.0 Localized edema; I25.2 Old myocardial infarction; Z79.01 Long term (current) use of anticoagulants; Z99.89 Dependence on other enabling machines and devices; Z56.0 Unemployment, unspecified; Z59.0 Homelessness
CPT/HCPCS: 36415; 71046-TC-FY; 80048; 80053; 85025; 85027; 85610; 86780; 90670; 93005; 93010; C9803; Q0162; U0003

== ENCOUNTER 2020-07-26 20:26 | Emergency (ER) | payer OTHER ==
--- NOTE | 2020-07-26 20:31 | PDOC ---
History of Present Illness - General Chief Complaint: Pain, Acute Stated Complaint: PAIN Time Seen by Provider: 07/26/20 20:30 - History of Present Illness Initial Comments: 07/26/20 20:31 HPI: 64 y/o M with polysubstance abuse presenting from [facility] for evaluation of left lower leg wound. Patient reports erythema and edema of left anterior leg worse than the right for the past 2 weeks worsening erythema over 2 days. He rep orts pain worse when walking. He denies fever, chills, abd pain, cp, sob, n/v, dysuria PMHx: as noted above ROS: as noted Allergies: NKDA ROS: GENERAL/CONSTITUTIONAL: No fever or chills. No weakness. HEAD, EYES, EARS, NOSE AND THROAT: No change in vision. No ear pain or discharge. No sore throat. CARDIOVASCULAR: No chest pain or shortness of breath RESPIRATORY: No cough, wheezing, or hemoptysis. GASTROINTESTINAL: No nausea, vomiting, diarrhea or constipation. GENITOURINARY: No dysuria, frequency, or change in urination. MUSCULOSKELETAL: +leg pain. SKIN: No rash NEUROLOGIC: No headache, vertigo, loss of consciousness, or change in strength/sensation. ENDOCRINE: No increased thirst. No abnormal weight change HEMATOLOGIC/LYMPHATIC: No anemia, easy bleeding, or history of blood clots. ALLERGIC/IMMUNOLOGIC: No hives or skin allergy. PE: GENERAL: Awake, alert, and fully oriented, no acute distress HEAD: No signs of trauma, normocephalic, atraumatic EYES: EOMI, sclera anicteric, conjunctiva clear ENT: Auricles normal inspection, hearing grossly normal, nares patent, oropharynx clear without exudates. Moist mucosa NECK: Normal ROM, no lymphadenopathy LUNGS: No increased work of breathing, symmetrical chest rise, clear to auscultation bilaterally, no wheezes, crackles or rhonchi HEART: Regular rate, regular rhythm, normal S1 and S2, no murmur, peripheral pulses 2+ and equal bilaterally. ABDOMEN: Soft, nondistended, nontender. No guarding, no rebound. No masses. No CVAT MUSCULOSKELETAL: FROM NEUROLOGICAL: Cranial nerves II through XII grossly intact. Normal speech, stable gait, no focal sensorimotor deficits SKIN: BL LE with significant hyperkeratotic skin changes and dry skin; LLE anterior sloan with ertyhema and warmth to palpation and ttp, no fluctuance Past History - Medical History Allergies/Adverse Reactions: Allergies Allergy/AdvReac Type Severity Reaction Status Date / Time No Known Allergies Allergy Verified 07/26/20 20:29 Home Medications: Ambulatory Orders Aspirin [ASA -] 81 mg PO DAILY 01/04/18 Tamsulosin HCl [Flomax] 0.4 mg PO DAILY 01/04/18 Anemia: Yes Asthma: No Cancer: No Cardiac Disorders: No (CHEST PAINS [place]) CVA: No COPD: No CHF: No Dementia: No Diabetes: No GI Disorders: No Disorders: No HTN: Yes (NO MED) Hypercholesterolemia: No Kidney Stones: No Liver Disease: No Seizures: No Thyroid Disease: No - Surgical History Orthopedic Surgery: Yes (compound fracture remote L ankle) - Reproductive History Testicular Surgery: No - Psycho-Social/Smoking History Smoking History: Current every day smoker Have you smoked in the past 12 months: Yes Number of Cigarettes Smoked Daily: 20 Cigars Per Day: 0 'Breaking Loose' booklet given: 07/26/20 ED Treatment Course - LABORATORY CBC & Chemistry Diagram: 07/26/20 21:51 07/26/20 21:31 Medical Decision Making - Medical Decision Making 07/26/20 21:05 64 y/o M with polysubstance abuse presenting from [facility] for evaluation of left lower leg wound. VSS, AF. PE with LLE erythema, edema, ttp. Patient refusing IV intervention and would like to be cleared to go back to detox -POCUS demonstrating cobblestoning but no discrete fluid collection -cbc, cmp, duplex r/o dvt -kelfex 07/26/20 21:52 DVT noted throught length of femoral and popliteal veins 07/26/20 22:57 Cr stable at baseline 1.9 will treat with eliquis 10mg discussed with [facility] and will accept back for detox Patient will require 10mg BID for the first 7 days followed by 5mg bid until further eval by pcp/cardio patient will require 7days keflex 500mg bid for cellulitis Discharge - Discharge Information Problems reviewed: Yes Clinical Impression/Diagnosis: Cellulitis, DVT, femoral, acute Condition: Stable Disposition: HOME - Follow up/Referral - Patient Discharge Instructions Additional Instructions: Take Elquis 10mg BID for 7 days followed by 5mg BID until evaluation by PCP/manager environmental health and safety Take 500mg keflex BID for 7 days Return to ER if any concerns arise - Post Discharge Activity
[2020-07-26 20:35] VITALS: BP 136/74; PULSE 94; TEMP 98.9; BMI 23.1
--- NOTE | 2020-07-26 20:45 | PDOC ---
Attending Attestation - Resident Resident Name: Ankita Covington - ED Attending Attestation I have performed the following: I have examined & evaluated the patient, The case was reviewed & discussed with the resident, I agree w/resident's findings & plan - HPI HPI: 07/26/20 21:02 Pt is homeless and lives at [facility]. Pt is in [place] now seeking detox from drugs at [facility]. Pt was sent from [facility] to the ER for his swollen legs. Left leg is swollen and inflamed compared to the right leg, with thick chronic skin changes and lichinified skin. Pt states that his legs always look like this. He wants to return to detox and he is frefusing admission to the hospital. Pt states that is we try to admit him, he will sign out and walk back to [facility]. - Physicial Exam PE: 07/26/20 21:04 Heart S1S2 RRR Lungs CTAB abd soft NT ND no flank pain Pt has kyphosis Pt has swollen legs bilaterally feet to thighs bilaterally. Left leg has thin skin swollen red legs with pitting edema Right leg is thickened skin (rhinocerous like) all toenails have onychomycosis. pt has no pain in his legs. He states that legs always look like this. - Medical Decision Making 07/26/20 21:07 CBC, COMP, sono to r/o DVT oral abx for simple cellulitis and return to [facility]. 07/26/20 21:08 Pt uses cocaine/methadone/morphine/alcohol and tobacco 07/26/20 22:26 Pt's CBC QNS; lab cannot ru the blood. Chem shows BUN/Cr slight elevation Pt refusing repeat blood test. We will try to talk to him some more. 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
--- OUTSIDE RECORDS SUMMARY | 2020-07-26 20:45 | XMS ---
:1955 Author Organization [facility] Support Name Relationship Address Phone UE Unavailable Unavailable Unavailable TRACI RAMIREZ SISTER [address] [facility] [place] [address] Re-disclosure Warning The records that you are [...] is protected by Article 27-F of the [facility] Public Health law. If you continue you may haveaccess to information: Regarding HIV / AIDS; Provided by facilities licensed or operated by the [facility] Office of Mental Health; or Provided by the [facility] Office for People With Developmental Disabilities. If such information is present, then the following [facility] mandated warning applies: This information has [...] law may result in a fine or fpc sentence or both. A general authorization for the release of medical or other information is NOT sufficient authorization for further disclosure. Insurance Providers Payer name Policy type Policy ID Covered Covered libertarian's Policy P derrick / Coverage libertarian ID relationship to [place] Inf ormation type garcia MEDICAID [id number] SP [id number] MEDICARE [id number] SP [id number]
[2020-07-26] MEDS ORDERED: CEPHALEXIN MONOHYDRATE 500 MG CAPSULE (UD) PO ONE (21:01)
[2020-07-26] MEDS ORDERED: CEPHALEXIN MONOHYDRATE 500 MG CAPSULE (UD) ONE (21:20)
[2020-07-26] MEDS ORDERED: APIXABAN 5 MG TABLET PO ONE (21:49)
[2020-07-26] MEDS ORDERED: APIXABAN 5 MG TABLET ONE (22:02)
[2020-07-26 22:24] LABS: ALBUMIN 3.1 g/dl (3.4-5.0); CALCIUM 8.8 mg/dL (8.5-10.1); CREATININE 1.9 mg/dL (0.55-1.3); POTASSIUM 5.1 mmol/L (3.5-5.1); TOT PROT 7.8 g/dl (6.4-8.2)
[2020-07-26 22:58] LABS: BILIRUBIN,TOTAL 0.3 mg/dL (0.2-1)
== END 2020-07-27 00:52 | disposition home or self-care (01) ==
LOC: JER 20:26
DX: L03.116 Cellulitis of left lower limb (principal); I82.402 Acute embolism and thrombosis of unspecified deep veins of left lower extremity
CPT/HCPCS: 36415; 80053; 93971-TC; 99285-25

== ENCOUNTER 2020-07-31 12:38 | Inpatient (IN) | payer OTHER ==
--- NOTE | 2020-07-31 12:59 | PDOC ---
History of Present Illness - General Stated Complaint: EXAMINATION FOR DVT Time Seen by Provider: 07/31/20 12:58 - History of Present Illness Initial Comments: 07/31/20 13:19 64 yo male coming in from [facility] rehab with pmh of alchohol dependence, CKD, cellulitis, DVT, BPH, and htn presents to ED for hyperkalemia according to charts of 5.9. Pt is very aggitated and poor historian complaining that he wants a cigarette and believes he may be here for his legs that has a clot in it. According to note from [facility] rehab pt here for worsening hyperkalemia and CKD. Pt does have a history of high potassium and is on kayexelate according to chart. Pt only complaining of leg pain that has been going on since clot was diagnosed on recent [facility] hospital on 07/26. [facility] Pt denies sob, chest pain, palpitations, abdominal pain and dysuria. Pt does have associated increased urinary frequency. PMH: BPH, HTN, DVT, anemia, EtOH abuse Meds: pt does not know according to chart: methadone, apixaban 10mg bid, aspirin, tamsulosin Allergies:NKA Social: Prior heroin abuse and alcohol abuse Past History - Medical History Allergies/Adverse Reactions: Allergies Allergy/AdvReac Type Severity Reaction Status Date / Time No Known Allergies Allergy Verified 07/31/20 13:24 Home Medications: Ambulatory Orders Aspirin [ASA -] 81 mg PO DAILY 01/04/18 Tamsulosin HCl [Flomax] 0.4 mg PO DAILY 01/04/18 Anemia: Yes Asthma: No Cancer: No Cardiac Disorders: No (CHEST PAINS OLD ND) CVA: No COPD: No CHF: No Dementia: No Diabetes: No GI Disorders: No Disorders: No HTN: Yes (NO MED) Hypercholesterolemia: No Kidney Stones: No Liver Disease: No Seizures: No Thyroid Disease: No - Surgical History Orthopedic Surgery: Yes (compound fracture remote L ankle) - Reproductive History Testicular Surgery: No - Psycho-Social/Smoking History Smoking History: Current every day smoker Have you smoked in the past 12 months: Yes Number of Cigarettes Smoked Daily: 20 Cigars Per Day: 0 'Breaking Loose' booklet given: 07/26/20 Review of Systems - Review of Systems Comments:: 07/31/20 13:28 GENERAL/CONSTITUTIONAL: No fever or chills. No weakness. HEAD, EYES, EARS, NOSE AND THROAT: No change in vision. No ear pain or discharge. No sore throat. CARDIOVASCULAR: No chest pain or shortness of breath RESPIRATORY: No cough, wheezing, or hemoptysis. GASTROINTESTINAL: No nausea, vomiting, diarrhea or constipation. GENITOURINARY: No dysuria. Increased urinary frequency (may be due to BPH) MUSCULOSKELETAL: Bilateral leg pain worse on left. No neck or back pain. NEUROLOGIC: No headache, vertigo, loss of consciousness, or change in strength/sensation. ENDOCRINE: No increased thirst. No abnormal weight change HEMATOLOGIC/LYMPHATIC: blood clot in left leg ALLERGIC/IMMUNOLOGIC: No hives or skin allergy. *Physical Exam - Physical Exam 07/31/20 13:30 GENERAL: Awake, alert, and fully oriented, agitated and mild distress HEAD: No signs of trauma, normocephalic, atraumatic EYES: EOMI, sclera anicteric, conjunctiva clear ENT: Auricles normal inspection, hearing grossly normal, nares patent, oropharynx clear without exudates. Moist mucosa NECK: Normal ROM, supple, no lymphadenopathy, JVD, or masses LUNGS: No distress, speaks full sentences, clear to auscultation bilaterally HEART: Regular rate and rhythm, normal S1 and S2, no murmurs, rubs or gallops ABDOMEN: Soft, nontender No guarding, no rebound. No masses EXTREMITIES : Bilateral lower ext edema. Left leg is tender to palpation and erythematous with lateral ulcer on foot. Right leg is thick and scaly. With 1+ pulses bilaterally in both lower ext. NEUROLOGICAL: Cranial nerves II through XII grossly intact. Normal speech, normal gait, no focal sensorimotor deficits SKIN: Warm, Dry, normal turgor, no rashes or lesions noted Heart Score/ECG Review - ECG Impressions Comment:: 07/31/20 17:04 Regular rate and rhythm Left axis deviated RBBB LAFB Normal WI QRS and QT interval No st segment changes or signs of ischemia ED Treatment Course - LABORATORY CBC & Chemistry Diagram: 08/01/20 09:30 08/01/20 06:55 Medical Decision Making - Medical Decision Making 07/31/20 14:19 64 yo male with BPH, CKD, htn and EtOH abuse presents with hyperkalemia. Pt denies palpitations, myalgias, chest pain and SOB. Will get cbc, cmp, ekg, and dvt study to assess advancement in dvt. 07/31/20 15:37 Pt has bilateral DVT worse from prior study. Will admit for DVT. 07/31/20 15:37 Pt Hgb steadily declining will get FOBT. 07/31/20 20:52 Pt shown to have bilateral DVT heparin started. [facility] rehab was called for dc back but pt was DC and pt is homeless so will admit because unsafe discharge on AC. Pt HPI, ED course, and plan was discussed with resident inpatient team. Pt admitted to Dr. Amin. Discharge - Discharge Information Problems reviewed: Yes Clinical Impression/Diagnosis: Alcohol dependence with uncomplicated withdrawal, Methadone maintenance therapy patient CKD (chronic kidney disease) stage 3, GFR 30-59 ml/min Qualifiers: Chronic kidney disease stage 3 subtype: unspecified whether 3a or 3b Qualified Code(s): N18.30 - Chronic kidney disease, stage 3 unspecified Opioid dependence Qualifiers: Substance use status: uncomplicated Qualified Code(s): F11.20 - Opioid dependence, uncomplicated DVT, femoral, acute Qualifiers: Laterality: bilateral Qualified Code(s): I82.413 - Acute embolism and thrombosis of femoral vein, bilateral Condition: Guarded - Admission Yes - Follow up/Referral - Patient Discharge Instructions - Post Discharge Activity
--- OUTSIDE RECORDS SUMMARY | 2020-07-31 13:18 | XMS ---
:1955 Author Organization [facility] Support Name Relationship Address Phone UE, UNEMPLOYED Unavailable Unavailable Unavailable UE Unavailable Unavailable Unavailable TRACI RAMIREZ [address] [place] [id number] TRACI RAMIREZ [address] [phone] [place] [id number] Re-disclosure Warning The records that you are [...] is protected by Article 27-F of the [facility] Public Health law. If you continue you may haveaccess to information: Regarding HIV / AIDS; Provided by facilities licensed or operated by the [facility] Office of Mental Health; or Provided by the [facility] Office for People With Developmental Disabilities. If such information is present, then the following [facility] mandated warning applies: This information has been [...] law may result in a fine or chcf sentence or both. A general authorization for the release of medical or other information is NOT sufficient authorization for further disclosure. Insurance Providers Payer name Policy type Policy ID Covered Covered democrat's Policy P derrick / Coverage democrat ID relationship to [place] Inf ormation type [place] MEDICAID [id number] SP [id number] MEDICARE [id number] SP [id number] Results ID Date Data Source [id number] 07/27/2020 08:15:00 AM EDT [facility] Name Value Range Interpretation Description Data Sup porting Code Source(s) Document(s ) SARS [facility] coronavirus 2 RNA This lab was ordered by [facility] [address] Bill Inter and reported by [facility]. Procedure
[2020-07-31 13:35] VITALS: BMI 23.1
--- NOTE | 2020-07-31 13:58 | PDOC ---
Documentation entered by Jose Maria Beckett SCRIBE, acting as scribe for Marilynn Stein MD. Marilynn Stein MD: This documentation has been prepared by the Sophy brasher Angel, SCRIBE, under my direction and personally reviewed by me in its entirety. I confirm that the documentation accurately reflects all work, treatment, procedures, and medical decision making performed by me. Attending Attestation - Resident Resident Name: Alok Hackett - ED Attending Attestation I have performed the following: I have examined & evaluated the patient, The case was reviewed & discussed with the resident, I agree w/resident's findings & plan - HPI HPI: 07/31/20 14:01 Agree with resident HPI 64 yo male coming in from [facility] rehab with pmh of alchohol dependence, CKD, cellulitis, DVT, BPH, and htn presents to ED for hyperkalemia according to charts of 5.9. Pt is very aggitated complaining that he wants a cigarette and believes he may be here for his legs that has a clot in it. According to note from [facility] rehab pt here for worsening hyperkalemia and CKD. Pt does have a history of high potassium and is on kayexelate according to chart. Pt only complaining of leg pain that has been going on since clot was diagnosed on recent [facility] on 07/26. Pt denies sob, chest pain, palpitations, abdominal pain and dysuria. Pt does have associated increased urinary frequency. PMH: BPH, HTN, DVT, anemia, EtOH abuse Meds: pt does not know according to chart: methadone, apixaban 10mg bid, aspirin, tamsulosin Allergies: NKA - Physicial Exam PE: 07/31/20 13:55 General: awake and alert, NAD. disheveled appearing, older than stated age. HEENT: NCAT, PERRL, EOMI, clear conjunctiva, anicteric, clear oropharynx, no oral lesions.. Neck: neck supple, FROM Resp: normal and even respirations, no respiratory distress CVS: mild tachy, 2+ peripheral pulses throughout, +chronic peripheral edema Abdomen: soft, NTND, no rebound or guarding. MSK: +chronic peripheral edema, SOLORIO x4, ROM intact. No clubbing or cyanosis. normal bulk and tone. Extremities: b/l edema, RLE with very dry cracking skin. Neuro: alert, oriented appropriately; no focal neurologic deficits Skin: warm and well perfused, cap refill <2 sec, normal color 07/31/20 13:56 - Medical Decision Making 07/31/20 13:56 Vital Signs Temp Pulse Resp BP Pulse Ox 98.2 F 112 H 18 93/64 98 07/31/20 13:24 07/31/20 13:24 07/31/20 13:24 07/31/20 13:24 07/31/20 13:24 alert,oriented x 3 lung clear edema to b/l extremities, appears chronic. no pain. detox completed concerning hyperkalemia,renal insufficiency,on eliquis 10 mgs po bid recieved kayexlate 30 gram po once pt sent in from [facility] for hyperkalemia? pt has h/o CKD, with baseline anemia and borderine potassium levels, with prior levels >5.5 will recheck labs, duplex to eval for evolving DVT (last dvt study 07/26/20 with left femoral and popliteal DVT, started on eliquis) 07/31/20 15:47 Duplex with bilateral DVTs, he has extensive DVT in the superficial femoral and popliteal veins bilaterally, flow is still present in the common femoral veins as well as the GSV. Patient was previously on Eliquis, now with bilateral DVTs, anticoagulation with heparin gtt Given he has extensive DVTs despite initiation of Eliquis about 1 week ago labs and lytes with downtrending anemia, compared to prior guaiac baselike Cr function, stable. admit to [facility] for medical management. as he is more social admission, homeless, completed his detox at [facility]. He has poor followup and unreliable with DVT management and compliance 07/31/20 16:27 08/02/20 16:13 Heart Score/ECG Review #1 ECG reviewed & interpreted by me at: 15:35 General ECG Interpretation: Sinus Rhythm, Normal Rate Compared to previous ECG there are: No significant change 07/31/20 15:45 EKG normal sinus rhythm 85 bpm, no interval abnormalities, wide QRS, bifascicular block,, ST and T wave segments and morphology normal. Nonspecific T wave abnormalities Discharge - Discharge Information Problems reviewed: Yes Clinical Impression/Diagnosis: Alcohol dependence with uncomplicated withdrawal, Methadone maintenance therapy patient CKD (chronic kidney disease) stage 3, GFR 30-59 ml/min Qualifiers: Chronic kidney disease stage 3 subtype: unspecified whether 3a or 3b Qualified Code(s): N18.30 - Chronic kidney disease, stage 3 unspecified Opioid dependence Qualifiers: Substance use status: uncomplicated Qualified Code(s): F11.20 - Opioid dependence, uncomplicated DVT, femoral, acute Qualifiers: Laterality: bilateral Qualified Code(s): I82.413 - Acute embolism and thrombosis of femoral vein, bilateral Condition: Guarded - Admission Yes - Follow up/Referral - Patient Discharge Instructions - Post Discharge Activity Vital Signs - Vital Signs Vital signs refused: No Pulse Rate: 85 Respiratory Rate: 18
[2020-07-31 14:45] LABS: BASO % 0.9 % (0-2.0); EOS % 4.9 % (0-4.5); HEMATOCRIT 25.7 % (35.4-49); HEMOGLOBIN 7.9 GM/dL (11.7-16.9); MCH 27.8 pg (25.7-33.7); MCHC 30.7 g/dl (32.0-35.9); MEAN CELL VOLUME 90.6 fl (80-96); MEAN PLT VOLUME 8.1 fl (7.5-11.1); MONO % 8.3 % (3.8-10.2); NEUT % 64.9 % (42.8-82.8); PLATELET COUNT 217 K/MM3 (134-434); RBC 2.84 M/mm3 (4.00-5.60); RDW 18.2 % (11.9-15.9); WHITE BLOOD COUNT 5.7 K/mm3 (4.0-10.0)
[2020-07-31 15:22] LABS: ALBUMIN 2.8 g/dl (3.4-5.0); BILIRUBIN,TOTAL 0.5 mg/dL (0.2-1); CALCIUM 8.7 mg/dL (8.5-10.1); CREATININE 1.9 mg/dL (0.55-1.3); POTASSIUM 5.1 mmol/L (3.5-5.1); TOT PROT 7.1 g/dl (6.4-8.2)
[2020-07-31 15:24] LABS: MAGNESIUM 2.2 mg/dL (1.8-2.4)
--- NOTE | 2020-07-31 15:56 | EKG ---
Test Reason : Blood Pressure : / mmHG Vent. Rate : 085 BPM Atrial Rate : 085 BPM P-R Int : 162 ms QRS Dur : 126 ms QT Int : 396 ms P-R-T Axes : 046 -68 053 degrees QTc Int : 471 ms NORMAL SINUS RHYTHM POSSIBLE LEFT ATRIAL ENLARGEMENT RIGHT BUNDLE BRANCH BLOCK LEFT ANTERIOR FASCICULAR BLOCK BIFASCICULAR BLOCK LEFT VENTRICULAR HYPERTROPHY CANNOT RULE OUT SEPTAL INFARCT (CITED ON OR BEFORE 31-JUL-2020) LATERAL INFARCT (CITED ON OR BEFORE 31-JUL-2020) ABNORMAL ECG WHEN COMPARED WITH ECG OF 27-JUL-2020 10:54, QUESTIONABLE CHANGE IN INITIAL FORCES OF ANTEROSEPTAL LEADS T WAVE INVERSION NO LONGER EVIDENT IN INFERIOR LEADS Confirmed by MD Flo, Ulysses ([id number]) on 07/31/2020 3:56:47 PM Referred By: Confirmed By:Ulysses Rossi MD
[2020-07-31] MEDS ORDERED: ACETAMINOPHEN 1000 MG/100 ML VIAL (NON FORMULARY) IVPB ONE (17:45)
[2020-07-31 17:50] LABS: INR 1.25 (0.83-1.09); PROTHROMBIN TIME (PATIENT) 15.3 SEC (9.7-13.0)
[2020-07-31 17:53] LABS: ACTIVATED PTT 34.6 SECONDS (25.2-36.5)
[2020-07-31] MEDS ORDERED: HEPARIN NA (PORCINE) 5,000 UNITS/ML 1ML VIAL SQ ONE (17:54)
[2020-07-31] MEDS ORDERED: HEPARIN NA (PORCINE) 5,000 UNITS/ML 1ML VIAL IVPUSH ONE (17:54)
[2020-07-31] MEDS ORDERED: HEPARIN NA (PORCINE) 5,000 UNITS/ML 1ML VIAL IVPUSH PRN ×4 (17:55→20:13)
[2020-07-31] MEDS ORDERED: ACETAMINOPHEN INJECTION 100 ML IVPB ONE (17:58)
[2020-07-31] MEDS ORDERED: HEPARIN SOD,PORK IN 0.45% NACL 25,000 UNITS/500 ML INFUS.BAG IVPB SCH (18:00)
[2020-07-31] MEDS ORDERED: HEPARIN NA (PORCINE) 5,000 UNITS/ML 1ML VIAL ONE ×2 (18:21→20:29)
[2020-07-31] MEDS ORDERED: HEPARIN INFUSION - 25,000 UNITS/500 ML INFUS.BAG IVPB ONE (18:22)
--- NOTE | 2020-07-31 19:35 | HP ---
CHIEF COMPLAINT: worsening LE pain PCP: denies HISTORY OF PRESENT ILLNESS: 64 M h/o chronic LE DVT's from [id number] (on and off with AC therapy), COPD, PSA with crack/cocaine/heroin/active smoker, BPH, Depression, presents from [facility] after complaining his "legs hurt". Patient has extensive h/o DVT, was seen in ED 3-4 days ago where LLE was found and pt. was started on Eliquis 10mg BID and discharged back to [facility]. Patient however denies fever/chills/cough/SOB/CP/recent travel or COVID exposure. Patient seen walking around in ED. When prompted he was going to be DC from ED, patient then endorsed he was homeless and had no where to go. ER course was notable for: (1) B/L LE DVT (appears chronic) (2) Heparin gtt started (3) Trace FOBT + Recent Travel: denies PAST MEDICAL HISTORY: as above PAST SURGICAL HISTORY: denies Social History: yes Smoking: yes Alcohol: yes Drugs: yes, crack, cocaine, heroin Allergies No Known Allergies Allergy (Verified 07/31/20 13:24) HOME MEDICATIONS: Home Medications Medication Instructions Recorded Aspirin [ASA -] 81 mg PO DAILY 01/04/18 Tamsulosin HCl [Flomax] 0.4 mg PO DAILY 01/04/18 PHYSICAL EXAMINATION Vital Signs - 24 hr 07/31/20 07/31/20 13:24 16:27 Temperature 98.2 F Pulse Rate 112 H 85 Respiratory 18 18 Rate Blood Pressure 93/64 O2 Sat by Pulse 98 Oximetry (%) GENERAL: AAOx3, tired appearing, disheveled HEENT NC/AT, poor dentition, dry MM, no JVD, no oral thrush LUNGS: Good air entry b/l, no wheezing HEART: Regular rate and rhythm, normal S1 and S2 without murmur, rub or gallop. ABDOMEN: Soft, nontender, not distended, normoactive bowel sounds, no guarding, no rebound, no masses. No hepatomegaly or splenomegaly. Ext diffuse chronic 2-3+ LE edema b/l with TTP both LE (chronic venous stasis LE b/l with diffuse skin thickening), some skin breaks in LLE, no pus/purulence appreciated. Laboratory Results - last 24 hr 07/31/20 07/31/20 07/31/20 14:12 14:12 16:05 WBC 5.7 RBC 2.84 L Hgb 7.9 L Hct 25.7 L MCV 90.6 MCH 27.8 MCHC 30.7 L RDW 18.2 H Plt Count 217 MPV 8.1 Absolute Neuts (auto) 3.7 Neutrophils % 64.9 Lymphocytes % 21.0 Monocytes % 8.3 Eosinophils % 4.9 H Basophils % 0.9 Nucleated RBC % 0 PT with INR INR PTT (Actin FS) Sodium 143 Potassium 5.1 Chloride 114 H Carbon Dioxide 26 Anion Gap 3 L BUN 29.0 H Creatinine 1.9 H Est GFR (CKD-EPI)AfAm 41.65 Est GFR (CKD-EPI)NonAf 35.94 Random Glucose 69 L Calcium 8.7 Magnesium 2.2 Total Bilirubin 0.5 AST 22 ALT 17 Alkaline Phosphatase 93 Total Protein 7.1 Albumin 2.8 L Stool Occult Blood Trace Blood Type Antibody Screen 07/31/20 07/31/20 16:50 16:50 WBC RBC Hgb Hct MCV MCH MCHC RDW Plt Count MPV Absolute Neuts (auto) Neutrophils % Lymphocytes % Monocytes % Eosinophils % Basophils % Nucleated RBC % PT with INR 15.30 H INR 1.25 H PTT (Actin FS) 34.6 Sodium Potassium Chloride Carbon Dioxide Anion Gap BUN Creatinine Est GFR (CKD-EPI)AfAm Est GFR (CKD-EPI)NonAf Random Glucose Calcium Magnesium Total Bilirubin AST ALT Alkaline Phosphatase Total Protein Albumin Stool Occult Blood Blood Type O POSITIVE Antibody Screen Negative ASSESSMENT/PLAN: 64 M Chronic LE DVT's with worsening pain COPD CKD PSA BPH Depression Active smoker Non-compliance w/ AC Trace FOBT+ Plan: Cont. Heparin gtt Vascular consult for possible IVC filter placement given h/o non-compliance w/ AC and anemia possible GI related Gi evaluation for EGD/colonoscopy Monitor CBC Send hepatitis profile Patient has poor outpatient follow up DVT ppx: Heparin Family Medical History Family History: As Documented Visit type - Medication Review Med list reviewed for High Risk Meds patients 65 and older: Yes - Emergency Visit Emergency Visit: Yes ED Registration Date: 07/31/20 Care time: The patient presented to the Emergency Department on the above date and was hospitalized for further evaluation of their emergent condition. - New Patient This patient is new to me today: Yes Date on this admission: 08/01/20 - Critical Care Critical Care patient: No
[2020-07-31] MEDS ORDERED: HEPARIN INFUSION - 25,000 UNITS/500 ML INFUS.BAG IVPB SCH (20:15)
--- OUTSIDE RECORDS SUMMARY | 2020-07-31 21:05 | XMS ---
:1955 [facility] Support Name Relationship Address Phone UE, UNEMPLOYED Unavailable Unavailable Unavailable UE Unavailable Unavailable Unavailable TRACI RAMIREZ [address] [place] [address] TRACI RAMIREZ [address] [phone] [place] [address] Re-disclosure Warning The records that you are [...] is protected by Article 27-F of the [facility] Public Health law. If you continue you may haveaccess to information: Regarding HIV / AIDS; Provided by facilities licensed or operated by the [facility] Office of Mental Health; or Provided by the [facility] Office for People With Developmental Disabilities. If such information is present, then the following [facility] mandated warning applies: This information has [...] law may result in a fine or long-term sentence or both. A general authorization for the release of medical or other information is NOT sufficient authorization for further disclosure. Insurance Providers Payer name Policy type Policy ID Covered Covered republican's Policy P derrick / Coverage republican ID relationship to [place] [employer] ormation type mit[place] MEDICAID [id number] SP [id number] MEDICARE [id number] SP [id number] Results ID Date Data Source [id number] 07/27/2020 08:15:00 AM EDT [facility] Name Value Range Interpretation Description Data Sup porting Code Source(s) Document(s ) SARS [facility] coronavirus 2 RNA This lab was ordered by [facility] Abbi Rolon [facility] Bill Inter and reported by [facility]. Procedure
[2020-08-01] MEDS ORDERED: ACETAMINOPHEN 1000 MG/100 ML VIAL (NON FORMULARY) IVPB ONE (03:06)
[2020-08-01] MEDS ORDERED: ALBUTEROL SO4 2.5/IPRATROPIUM 0.5 INH SOL 3 ML VIAL.NEB. NEB PRN (06:54)
[2020-08-01] MEDS ORDERED: HEPARIN NA (PORCINE) 5,000 UNITS/ML 1ML VIAL IVPUSH PRN ×2 (06:58)
[2020-08-01 09:56] LABS: BASO % 0.8 % (0-2.0); EOS % 6.2 % (0-4.5); HEMOGLOBIN 8.8 GM/dL (11.7-16.9); LYMPH % 33.4 % (8-40); MCH 28.2 pg (25.7-33.7); MCHC 31.3 g/dl (32.0-35.9); MEAN CELL VOLUME 90.1 fl (80-96); MEAN PLT VOLUME 8.4 fl (7.5-11.1); MONO % 8.1 % (3.8-10.2); NEUT % 51.5 % (42.8-82.8); PLATELET COUNT 245 K/MM3 (134-434); RBC 3.11 M/mm3 (4.00-5.60); RDW 18.5 % (11.9-15.9); WHITE BLOOD COUNT 5.5 K/mm3 (4.0-10.0)
[2020-08-01] MEDS ORDERED: APIXABAN 5 MG TABLET PO SCH (10:00)
[2020-08-01] MEDS ORDERED: HEPARIN - 25,000 UNIT in SODIUM CHLORIDE 495 ML IV SCH (10:00)
[2020-08-01 10:30] LABS: BILIRUBIN,TOTAL 0.3 mg/dL (0.2-1); BLOOD UREA NITROGEN 27.2 mg/dL (7-18); CREATININE 1.8 mg/dL (0.55-1.3); POTASSIUM 5.6 mmol/L (3.5-5.1); TOT PROT 8.1 g/dl (6.4-8.2)
[2020-08-01] MEDS ORDERED: METHADONE HCL 40 MG DISPERSABLE TABLET ONE (10:38)
[2020-08-01] MEDS ORDERED: PANTOPRAZOLE 40 MG TABLET ONE (10:38)
[2020-08-01] MEDS ORDERED: METHADONE HCL 10 MG TABLET ONE (10:38)
[2020-08-01] MEDS ORDERED: TAMSULOSIN HCL 0.4 MG CAP ONE (10:38)
[2020-08-01] MEDS: TAMSULOSIN HCL 0.4 MG CAP PO SCH (10:43)
[2020-08-01] MEDS: PANTOPRAZOLE 40 MG TABLET PO SCH (10:46)
[2020-08-01] MEDS ORDERED: METHADONE HCL 10 MG TABLET PO ONE (10:56)
--- NOTE | 2020-08-01 11:52 | PN ---
Physical Exam: SUBJECTIVE: Patient seen and examined at the bedside awaiting bed assignment. He initially wanted to sign out AMA but now agreeing to stay. Tells me he is homeless, he was in [facility] for rehab but refusing to return on a heparin drip for leg DVT but refusing blood draws to monitor aptt he was on antibiotics but has not taken them he has had blood clots "for years" and has been on and off anticoagulations. he is asking for clothes because he is cold and uncomfortable. asking for surgical boots. assured him that I will help him with both. OBJECTIVE: will stop heparin gtt as he is refusing monitoring of aptt and is adamant about frequent blood draws will place on eliquis PO ----- Patient is a 64 year old male with a significant past medical history of chronic LE DVT's from [id number] (on and off with AC therapy), COPD, PSA with crack/cocaine/heroin/active smoker, BPH, depression, presents from [facility] after complaining his "legs hurt". Patient has extensive h/o DVT, was seen in ED 3-4 days ago where LLE was found and pt. was started on Eliquis 10mg BID and discharged back to [facility]. Patient however denies fever/chills/cough/SOB/CP/recent travel or COVID exposure. patient non compliant with Eliquis. he is refusing to go back to [facility] and wanted to sign out AMA today, then agreed to stay for evaluation of anemia, DVTs and leg wounds. Period Temp Pulse Resp BP Sys/Nicolas Pulse Ox Last 24 Hr 97.0 F-98.3 F 74-112 18-74 92-112/55-73 96-100 GENERAL: The patient is awake, alert, and fully oriented, in no acute distress. tolerating room air. disheveled. pt is homeless HEAD: Normal with no signs of trauma. EYES: PERRL, extraocular movements intact, sclera anicteric, conjunctiva clear. No ptosis. ENT: Ears normal, nares patent, oropharynx clear without exudates NECK: Trachea midline, full range of motion, supple. LUNGS: Breath sounds equal, clear to auscultation bilaterally HEART: Regular rate and rhythm ABDOMEN: Soft, nontender, nondistended, normoactive bowel sounds EXTREMITIES: left forearm fistula?. small bruit heard on this site, patient denies having a fistula and did not allow me to re assess site. NEUROLOGICAL: Normal speech, gait not observed. PSYCH: Normal mood, normal affect. SKIN: bilateral foot wound, +2 edema bilaterally, left leg redness, likely cellulitis Laboratory Results - last 24 hr 07/31/20 07/31/20 07/31/20 14:12 14:12 16:05 WBC 5.7 RBC 2.84 L Hgb 7.9 L Hct 25.7 L MCV 90.6 MCH 27.8 MCHC 30.7 L RDW 18.2 H Plt Count 217 MPV 8.1 Absolute Neuts (auto) 3.7 Neutrophils % 64.9 Lymphocytes % 21.0 Monocytes % 8.3 Eosinophils % 4.9 H Basophils % 0.9 Nucleated RBC % 0 PT with INR INR PTT (Actin FS) Sodium 143 Potassium 5.1 Chloride 114 H Carbon Dioxide 26 Anion Gap 3 L BUN 29.0 H Creatinine 1.9 H Est GFR (CKD-EPI)AfAm 41.65 Est GFR (CKD-EPI)NonAf 35.94 Random Glucose 69 L Hemoglobin A1c % Calcium 8.7 Magnesium 2.2 Total Bilirubin 0.5 AST 22 ALT 17 Alkaline Phosphatase 93 Total Protein 7.1 Albumin 2.8 L Triglycerides Cholesterol Total LDL Cholesterol HDL Cholesterol TSH Stool Occult Blood Trace Blood Type Antibody Screen 07/31/20 07/31/20 08/01/20 16:50 16:50 02:07 WBC RBC Hgb Hct MCV MCH MCHC RDW Plt Count MPV Absolute Neuts (auto) Neutrophils % Lymphocytes % Monocytes % Eosinophils % Basophils % Nucleated RBC % PT with INR 15.30 H INR 1.25 H PTT (Actin FS) 34.6 78.5 H Sodium Potassium Chloride Carbon Dioxide Anion Gap BUN Creatinine Est GFR (CKD-EPI)AfAm Est GFR (CKD-EPI)NonAf Random Glucose Hemoglobin A1c % Calcium Magnesium Total Bilirubin AST ALT Alkaline Phosphatase Total Protein Albumin Triglycerides Cholesterol Total LDL Cholesterol HDL Cholesterol TSH Stool Occult Blood Blood Type O POSITIVE Antibody Screen Negative 08/01/20 08/01/20 08/01/20 06:55 09:30 09:30 WBC 5.5 RBC 3.11 L Hgb 8.8 L Hct 28.0 L MCV 90.1 MCH 28.2 MCHC 31.3 L RDW 18.5 H Plt Count 245 MPV 8.4 Absolute Neuts (auto) 2.8 Neutrophils % 51.5 D Lymphocytes % 33.4 D Monocytes % 8.1 Eosinophils % 6.2 H Basophils % 0.8 Nucleated RBC % 0 PT with INR INR PTT (Actin FS) Sodium 139 Potassium 5.6 H Chloride 108 H Carbon Dioxide 25 Anion Gap 6 L BUN 27.2 H Creatinine 1.8 H Est GFR (CKD-EPI)AfAm 44.46 Est GFR (CKD-EPI)NonAf 38.36 Random Glucose 73 L Hemoglobin A1c % 4.5 Calcium 9.0 Magnesium Total Bilirubin 0.3 AST 35 ALT 20 Alkaline Phosphatase 90 Total Protein 8.1 Albumin 3.0 L Triglycerides 57 Cholesterol 145 Total LDL Cholesterol 82 HDL Cholesterol 57 TSH 5.79 H D Stool Occult Blood Blood Type Antibody Screen Active Medications Generic Name Dose Route Start Last Admin Trade Name Freq PRN Reason Stop Dose Admin Albuterol/Ipratropium 1 amp 08/01/20 06:54 Duoneb - NEB Q4H PRN SHORTNESS OF BREATH Heparin Sodium (Porcine) 1,000 unit 08/01/20 06:58 Heparin - IVPUSH PRN PRN Heparin Heparin Sodium (Porcine) 5,000 unit 08/01/20 06:58 Heparin - IVPUSH PRN PRN Heparin Heparin Sodium (Porcine) 25, 500 mls @ 16 mls/hr 08/01/20 10:00 08/01/20 10:11 000 unit/ Sodium Chloride IV 950 unit/hr TITR SHAYE 19 mls/hr Administration Protocol 800 UNIT/HR Pantoprazole Sodium 40 mg 08/01/20 10:00 08/01/20 10:46 Protonix - PO 40 mg DAILY SHAYE Administration Tamsulosin HCl 0.4 mg 08/01/20 08:30 08/01/20 10:43 Flomax - PO 0.4 mg DAILY@0830 [facility] Administration ASSESSMENT/PLAN: Problem List - Problems (1) Cellulitis Assessment/Plan: left lower ext cellulitis ID consulted Vascular consulted Code(s): L03.90 - CELLULITIS, UNSPECIFIED (2) Homeless Assessment/Plan: patient without clothes or shoes. disheveled. tells me that he is homeless and asking for boots for his feet will order through a medical supply store SW consulted for help with [facility] placement Code(s): Z59.0 - HOMELESSNESS (3) Non compliance w medication regimen Assessment/Plan: patient reports non compliance with eliquis and antibiotics for his leg wound Code(s): Z91.14 - PATIENT'S OTHER NONCOMPLIANCE WITH MEDICATION REGIMEN (4) Alcohol dependence with uncomplicated withdrawal Code(s): F10.230 - ALCOHOL DEPENDENCE WITH WITHDRAWAL, UNCOMPLICATED (5) DVT, femoral, acute Code(s): I82.419 - ACUTE EMBOLISM AND THROMBOSIS OF UNSPECIFIED FEMORAL VEIN Qualifiers: Laterality: bilateral Qualified Code(s): I82.413 - Acute embolism and thrombosis of femoral vein, bilateral (6) Opioid dependence Assessment/Plan: on methadone program Code(s): F11.20 - OPIOID DEPENDENCE, UNCOMPLICATED Qualifiers: Substance use status: uncomplicated Qualified Code(s): F11.20 - Opioid dependence, uncomplicated (7) CKD (chronic kidney disease) stage 3, GFR 30-59 ml/min Code(s): N18.3 - CHRONIC KIDNEY DISEASE, STAGE 3 (MODERATE) * DO NOT USE * Qualifiers: Chronic kidney disease stage 3 subtype: unspecified whether 3a or 3b Qualified Code(s): N18.30 - Chronic kidney disease, stage 3 unspecified (8) Methadone maintenance therapy patient Assessment/Plan: methadone confirmed by primary RN on methadone 110mg daily Code(s): F11.20 - OPIOID DEPENDENCE, UNCOMPLICATED (9) Left leg DVT Assessment/Plan: was on heparin drip but d/c as patient was refusing routine blood work to monitor aptt start on eliquis 10mg bid dosing x 7 days then eliquis 5mg bid Code(s): I82.402 - ACUTE EMBOLISM AND THOMBOS UNSP DEEP VEINS OF L LOW EXTREM (10) Hypertension Assessment/Plan: Bp stable, monitor Code(s): I10 - ESSENTIAL (PRIMARY) HYPERTENSION Qualifiers: Hypertension type: essential hypertension Qualified Code(s): I10 - Essential (primary) hypertension (11) Hyperkalemia Assessment/Plan: K elevated at 5.6, repeat labs ordered to confirm before treatment. Code(s): E87.5 - HYPERKALEMIA (12) Anemia Assessment/Plan: iron profile ordered Vascular consult for possible IVC filter placement given non-compliance w/AC and anemia possible GI related start on protonix Code(s): D64.9 - ANEMIA, UNSPECIFIED Visit type - Emergency Visit Emergency Visit: Yes ED Registration Date: 07/31/20 Care time: The patient presented to the Emergency Department on the above date and was hospitalized for further evaluation of their emergent condition. - New Patient This patient is new to me today: Yes Date on this admission: 08/01/20 - Critical Care Critical Care patient: No - Discharge Referral Referred to [facility] No - Medication Review Med list reviewed for High Risk Meds patients 65 and older: Yes
--- NOTE | 2020-08-01 13:35 | PN ---
Progress Note (short form) - Note Progress Note: Came to evaluate patient. He would not answer questions and stated that he wanted to eat. Please recall when patient amenable to evaluation as consultation could not be performed.
[2020-08-01] MEDS ORDERED: APIXABAN 5 MG TABLET ONE (14:32)
[2020-08-01] MEDS: APIXABAN 5 MG TABLET PO SCH ×2 (14:39→23:00)
[2020-08-01] MEDS ORDERED: LIDOCAINE HCL 5% TOP OINTMENT 50 GM TUBE TP ONE (15:40)
[2020-08-01] MEDS ORDERED: ACETAMINOPHEN 325 MG TABLET (FP) PO PRN (15:40)
[2020-08-01] MEDS: LIDOCAINE 5% TOPICAL PATCH TP SCH (16:19)
[2020-08-01] MEDS: LIDOCAINE PATCH REMOVAL MC SCH (23:00)
[2020-08-02] MEDS ORDERED: METHADONE HCL 10 MG TABLET PO SCH (06:00)
[2020-08-02] MEDS ORDERED: PT OWN MED DRAWER 7, Y5N ONE (07:18)
[2020-08-02] MEDS ORDERED: METHADONE HCL 10 MG TABLET ONE (11:06)
[2020-08-02] MEDS ORDERED: METHADONE HCL 40 MG DISPERSABLE TABLET ONE (11:06)
[2020-08-02] MEDS: METHADONE 80 MG, METHADONE 30 MG PO SCH (11:18)
[2020-08-02] MEDS: APIXABAN 5 MG TABLET PO SCH ×2 (11:19→21:20)
[2020-08-02] MEDS: TAMSULOSIN HCL 0.4 MG CAP PO SCH (11:19)
[2020-08-02] MEDS: LIDOCAINE 5% TOPICAL PATCH TP SCH (11:19)
[2020-08-02] MEDS: PANTOPRAZOLE 40 MG TABLET PO SCH (11:20)
--- NOTE | 2020-08-02 11:23 | PN ---
Physical Exam: SUBJECTIVE: Patient seen and examined at the bedside. reports diarrhea all night, that spilled onto the floor and soiled his clothes and linens no fever, no abdominal pain, no nausea/vomiting will send for stool culture OBJECTIVE: awaiting labs ----- Patient is a 64 year old male with a significant past medical history of chronic LE DVT's from [id number] (on and off with AC therapy), COPD, PSA with crack/cocaine/heroin/active smoker, BPH, depression, presents from [facility] after complaining his "legs hurt". Patient has extensive h/o DVT, was seen in ED 3-4 days ago where LLE was found and pt. was started on Eliquis 10mg BID and discharged back to [facility]. Patient however denies fever/chills/cough/SOB/CP/r ecent travel or COVID exposure. patient non compliant with Eliquis. he is refusing to go back to [facility] and wanted to sign out AMA today, then agreed to stay for evaluation of anemia, DVTs and leg wounds. primary RN reports patient refused labs t his a.m. I spoke to patient and he is now agreeing to blood work. Had copious amts of diarrhea overnight. Hep c pos per labs Vital Signs Period Temp Pulse Resp BP Sys/Nicolas Pulse Ox Last 24 Hr 98 F-98.2 F 72-98 18-20 98-120/60-86 95-98 GENERAL: The patient is awake, alert, and fully oriented, in no acute distress. tolerating room air. disheveled. pt is homeless HEAD: Normal with no signs of trauma. EYES: PERRL, extraocular movements intact, sclera anicteric, conjunctiva clear. No ptosis. ENT: Ears normal, nares patent, oropharynx clear without exudates NECK: Trachea midline, full range of motion, supple. LUNGS: Breath sounds equal, clear to auscultation bilaterally HEART: Regular rate and rhythm ABDOMEN: Soft, nontender, nondistended, normoactive bowel sounds EXTREMITIES: left forearm fistula?. small bruit heard on this site, patient denies having a fistula and did not allow me to re assess site. NEUROLOGICAL: Normal speech, gait not observed. PSYCH: Normal mood, normal affect. SKIN: bilateral foot wound, +2 edema bilaterally, left leg redness, likely cellulitis Laboratory Results - last 24 hr 08/01/20 09:30 Hep A IgM Ab Confirm Negative Hep Bs Antigen Negative Hep B Core IgM Ab Negative Hepatitis C Ab (EIA) >11.0 H Active Medications Generic Name Dose Route Start Last Admin Trade Name Laurent PRN Reason Stop Dose Admin Acetaminophen 650 mg 08/01/20 15:40 Tylenol - PO Q6H PRN PAIN LEVEL 6-10 Albuterol/Ipratropium 1 amp 08/01/20 06:54 Duoneb - NEB Q4H PRN SHORTNESS OF BREATH Apixaban 10 mg 08/01/20 13:00 08/02/20 11:19 Eliquis - PO 08/07/20 22:01 10 mg BID SHAYE Administration Lidocaine 1 patch 08/01/20 16:00 08/02/20 11:19 Lidoderm Patch - TP 1 patch DAILY SHAYE Administration Methadone HCl 80 mg/ Methadone 110 mg 08/02/20 06:00 08/02/20 11:18 HCl 30 mg PO 110 mg DAILY@0600 [facility] Administration Miscellaneous 1 each 08/01/20 22:00 08/01/20 23:00 Lidoderm Patch Removal MC Not Given DAILY@2200 [facility] Pantoprazole Sodium 40 mg 08/01/20 10:00 08/02/20 11:20 Protonix - PO 40 mg DAILY SHAYE Administration Tamsulosin HCl 0.4 mg 08/01/20 08:30 08/02/20 11:19 Flomax - PO 0.4 mg DAILY@0830 [facility] Administration ASSESSMENT/PLAN: Problem List - Problems (1) Cellulitis Assessment/Plan: left lower ext cellulitis ID consulted and recommended Augmentin Vascular consulted and following Code(s): L03.90 - CELLULITIS, UNSPECIFIED (2) Homeless Assessment/Plan: patient without clothes or shoes. disheveled. tells me that he is homeless and asking for boots for his feet shoes for patient provided by director social service, clothes also provided. SW consulted for help with senior living placement Code(s): Z59.0 - HOMELESSNESS (3) Non compliance w medication regimen Assessment/Plan: patient reports non compliance with eliquis and antibiotics for his leg wound Code(s): Z91.14 - PATIENT'S OTHER NONCOMPLIANCE WITH MEDICATION REGIMEN (4) Alcohol dependence with uncomplicated withdrawal Code(s): F10.230 - ALCOHOL DEPENDENCE WITH WITHDRAWAL, UNCOMPLICATED (5) DVT, femoral, acute Assessment/Plan: DVT for a few months per patient, non compliant with Eliquis. He is insured but tells me that he has been on and off anticoagulations. started on eliquis 10mg bid x 7 days then eliquis 5mg bid. Code(s): I82.419 - ACUTE EMBOLISM AND THROMBOSIS OF UNSPECIFIED FEMORAL VEIN Qualifiers: Laterality: bilateral Qualified Code(s): I82.413 - Acute embolism and thrombosis of femoral vein, bilateral (6) Opioid dependence Assessment/Plan: on methadone program Code(s): F11.20 - OPIOID DEPENDENCE, UNCOMPLICATED Qualifiers: Substance use status: uncomplicated Qualified Code(s): F11.20 - Opioid dependence, uncomplicated (7) CKD (chronic kidney disease) stage 3, GFR 30-59 ml/min Assessment/Plan: monitor kidney function. also with elevated potassium levels. nephrology consulted and following Code(s): N18.3 - CHRONIC KIDNEY DISEASE, STAGE 3 (MODERATE) * DO NOT USE * Qualifiers: Chronic kidney disease stage 3 subtype: unspecified whether 3a or 3b Qualified Code(s): N18.30 - Chronic kidney disease, stage 3 unspecified (8) Methadone maintenance therapy patient Assessment/Plan: methadone confirmed by primary RN on methadone 110mg daily Code(s): F11.20 - OPIOID DEPENDENCE, UNCOMPLICATED (9) Left leg DVT Assessment/Plan: was on heparin drip but d/c as patient was refusing routine blood work to monitor aptt start on eliquis 10mg bid dosing x 7 days then eliquis 5mg bid Code(s): I82.402 - ACUTE EMBOLISM AND THOMBOS UNSP DEEP VEINS OF L LOW EXTREM (10) Hypertension Assessment/Plan: Bp stable, monitor Code(s): I10 - ESSENTIAL (PRIMARY) HYPERTENSION Qualifiers: Hypertension type: essential hypertension Qualified Code(s): I10 - Essential (primary) hypertension (11) Hyperkalemia Assessment/Plan: K elevated at 5.7, will give one dose of Lokelma and monitor patient refusing blood work but now accepting Code(s): E87.5 - HYPERKALEMIA (12) Anemia Assessment/Plan: iron profile ordered Vascular consult for possible IVC filter placement given non-compliance w/AC and anemia possible GI related start on protonix stool occult positive (trace) for possible EGD/scoping if patient agrees Code(s): D64.9 - ANEMIA, UNSPECIFIED Visit type - Emergency Visit Emergency Visit: Yes ED Registration Date: 07/31/20 Care time: The patient presented to the Emergency Department on the above date and was hospitalized for further evaluation of their emergent condition. - New Patient This patient is new to me today: No - Critical Care Critical Care patient: No - Discharge Referral Referred to [facility] No - Medication Review Med list reviewed for High Risk Meds patients 65 and older: Yes
--- NOTE | 2020-08-02 13:34 | CON.ID ---
Consult Consult Specialty:: infectious diseases Referred by:: hospitalist Reason for Consultation:: confusion - History of Present Illness Chief Complaint: says low calcium History of Present Illness: patient is a poor historian, history obtained from the charts 64 yo male coming in from [facility] rehab with pmh of alchohol dependence, CKD, cellulitis, DVT, BPH, and htn presents to ED for hyperkalemia according to charts of 5.9. Pt was very agitated complaining that he wants a cigarette and believes he may be here for his legs that has a clot in it. According to note from [facility] rehab pt here for worsening hyperkalemia and CKD. Pt does have a history of high potassium and is on kayexelate according to chart. Pt only complaining of leg pain that has been going on since clot was diagnosed on recent [facility] on 07/26. Pt denies sob, chest pain, palpitations, abdominal pain and dysuria. Pt does have associated increased urinary frequency. - History Source History Provided By: Medical Record Limitations to Obtaining History: Poor Historian - Past Medical History Cardio/Vascular: Yes: HTN Pulmonary: Yes: COPD Hepatobiliary: Yes: Hepatitis C Renal/: Yes: BPH Psych: Yes: Addictions - Past Surgical History Past Surgical History: Yes: None (Left ankle fracture repair) - Alcohol/Substance Use Hx Alcohol Use: Yes History of Substance Use: reports: Heroin - Smoking History Smoking history: Current every day smoker Have you smoked in the past 12 months: Yes Aproximately how many cigarettes per day: 20 - Social History ADL: Independent History of Recent Travel: No Home Medications - Allergies Allergies/Adverse Reactions: Allergies Allergy/AdvReac Type Severity Reaction Status Date / Time No Known Allergies Allergy Verified 07/31/20 13:24 - Home Medications Home Medications: Ambulatory Orders Aspirin [ASA -] 81 mg PO DAILY 01/04/18 Tamsulosin HCl [Flomax] 0.4 mg PO DAILY 01/04/18 Review of Systems - Review of Systems Constitutional: reports: No Symptoms Eyes: reports: No Symptoms HENT: reports: No Symptoms Neck: reports: No Symptoms Cardiovascular: reports: No Symptoms Respiratory: reports: No Symptoms Gastrointestinal: reports: No Symptoms Genitourinary: reports: No Symptoms Musculoskeletal: reports: Other (leg pain) Neurological: reports: No Symptoms Endocrine: reports: No Symptoms Hematology/Lymphatic: reports: No Symptoms Psychiatric: reports: No Symptoms Physical Exam Vital Signs: Vital Signs Temperature 98.1 F 08/02/20 01:41 Pulse Rate 94 H 08/02/20 09:00 Respiratory Rate 20 08/02/20 09:00 Blood Pressure 132/88 08/02/20 09:00 O2 Sat by Pulse Oximetry (%) 95 08/02/20 09:00 Constitutional: Yes: Anxious, Thin Cardiovascular: Yes: S1, S2 Respiratory: Yes: Regular, CTA Bilaterally Gastrointestinal: Yes: Normal Bowel Sounds, Soft Musculoskeletal: Yes: WNL Extremities: Yes: Other (arm fistula) Integumentary: Yes: Erythema, Other (dry keratotic skin, dry skin) Neurological: Yes: Alert, Other Psychiatric: Yes: Alert Labs: CBC, BMP 08/01/20 09:30 08/01/20 06:55 Imaging - Results Chest X-ray: Report Reviewed, Image Reviewed Assessment/Plan Problem List - Problems (1) Cellulitis Code(s): L03.90 - CELLULITIS, UNSPECIFIED (2) Homeless Code(s): Z59.0 - HOMELESSNESS (3) Non compliance w medication regimen Code(s): Z91.14 - PATIENT'S OTHER NONCOMPLIANCE WITH MEDICATION REGIMEN (4) Alcohol dependence with uncomplicated withdrawal Code(s): F10.230 - ALCOHOL DEPENDENCE WITH WITHDRAWAL, UNCOMPLICATED (5) DVT, femoral, acute Code(s): I82.419 - ACUTE EMBOLISM AND THROMBOSIS OF UNSPECIFIED FEMORAL VEIN Qualifiers: Laterality: bilateral Qualified Code(s): I82.413 - Acute embolism and thrombosis of femoral vein, bilateral (6) Opioid dependence Code(s): F11.20 - OPIOID DEPENDENCE, UNCOMPLICATED Qualifiers: Substance use status: uncomplicated Qualified Code(s): F11.20 - Opioid dependence, uncomplicated (7) CKD (chronic kidney disease) stage 3, GFR 30-59 ml/min Code(s): N18.3 - CHRONIC KIDNEY DISEASE, STAGE 3 (MODERATE) * DO NOT USE * Qualifiers: Chronic kidney disease stage 3 subtype: unspecified whether 3a or 3b Qualified Code(s): N18.30 - Chronic kidney disease, stage 3 unspecified (8) Methadone maintenance therapy patient Code(s): F11.20 - OPIOID DEPENDENCE, UNCOMPLICATED (9) Left leg DVT Code(s): I82.402 - ACUTE EMBOLISM AND THOMBOS UNSP DEEP VEINS OF L LOW EXTREM (10) Hypertension Code(s): I10 - ESSENTIAL (PRIMARY) HYPERTENSION Qualifiers: Hypertension type: essential hypertension Qualified Code(s): I10 - Essential (primary) hypertension (11) Hyperkalemia Code(s): E87.5 - HYPERKALEMIA (12) Anemia Code(s): D64.9 - ANEMIA, UNSPECIFIED plan will hold off on abx for now will see how the leg looks tomorrow
[2020-08-02 13:45] LABS: BASO % 0.9 % (0-2.0); EOS % 2.2 % (0-4.5); HEMATOCRIT 27.1 % (35.4-49); HEMOGLOBIN 8.4 GM/dL (11.7-16.9); LYMPH % 16.6 % (8-40); MCH 27.8 pg (25.7-33.7); MCHC 30.9 g/dl (32.0-35.9); MEAN CELL VOLUME 89.9 fl (80-96); MEAN PLT VOLUME 8.2 fl (7.5-11.1); MONO % 5.3 % (3.8-10.2); PLATELET COUNT 219 K/MM3 (134-434); RBC 3.02 M/mm3 (4.00-5.60); RDW 17.5 % (11.9-15.9); WHITE BLOOD COUNT 7.1 K/mm3 (4.0-10.0)
[2020-08-02 14:18] LABS: BILIRUBIN,TOTAL 0.3 mg/dL (0.2-1); BLOOD UREA NITROGEN 30.1 mg/dL (7-18); CALCIUM 9.2 mg/dL (8.5-10.1); CREATININE 2.1 mg/dL (0.55-1.3); MAGNESIUM 2.1 mg/dL (1.8-2.4); POTASSIUM 5.7 mmol/L (3.5-5.1); TOT PROT 7.9 g/dl (6.4-8.2)
[2020-08-02] MEDS ORDERED: SODIUM ZIRCONIUM CYCLOSILICATE (LOKELMA) 5 GM PACKET PO SCH (15:00)
--- NOTE | 2020-08-02 15:01 | CONSULT ---
Consult Consult Specialty:: Nephrology Reason for Consultation:: CKD - History of Present Illness Chief Complaint: leg pain History of Present Illness: Pt is a 64 year old male with pmhx of ckd, copd, poly substance abuse with crack, cocaine and heroin, bph, depression and active smoking who presents to the ER with leg pain. 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 He has ckd and renal function is not far from baseline. He was also found to be hyperkalemia. He denies chest pain or shortness of breath. He denies fever or chills. He is a poor historian. - History Source History Provided By: Patient - Past Medical History Cardio/Vascular: Yes: HTN Pulmonary: Yes: COPD Hepatobiliary: Yes: Hepatitis C Renal/: Yes: BPH Psych: Yes: Addictions - Past Surgical History Past Surgical History: Yes: None (Left ankle fracture repair) - Alcohol/Substance Use Hx Alcohol Use: Yes History of Substance Use: reports: Heroin - Smoking History Smoking history: Current every day smoker Have you smoked in the past 12 months: Yes Aproximately how many cigarettes per day: 20 - Social History ADL: Independent History of Recent Travel: No Home Medications - Allergies Allergies/Adverse Reactions: Allergies Allergy/AdvReac Type Severity Reaction Status Date / Time No Known Allergies Allergy Verified 07/31/20 13:24 - Home Medications Home Medications: Ambulatory Orders Aspirin [ASA -] 81 mg PO DAILY 01/04/18 Tamsulosin HCl [Flomax] 0.4 mg PO DAILY 01/04/18 Family Medical History Family History: Denies Review of Systems - Review of Systems Constitutional: reports: Malaise Eyes: reports: No Symptoms HENT: reports: No Symptoms Neck: reports: No Symptoms Cardiovascular: reports: Edema Respiratory: reports: No Symptoms Genitourinary: reports: No Symptoms Musculoskeletal: reports: No Symptoms Integumentary: reports: No Symptoms Neurological: reports: No Symptoms Endocrine: reports: No Symptoms Hematology/Lymphatic: reports: No Symptoms Psychiatric: reports: No Symptoms Physical Exam Vital Signs: Vital Signs Temperature 98.1 F 08/02/20 01:41 Pulse Rate 94 H 08/02/20 09:00 Respiratory Rate 20 08/02/20 09:00 Blood Pressure 132/88 08/02/20 09:00 O2 Sat by Pulse Oximetry (%) 95 08/02/20 09:00 Constitutional: Yes: Calm Eyes: Yes: Conjunctiva Clear HENT: Yes: Atraumatic Neck: Yes: Supple Cardiovascular: Yes: S1, S2 Respiratory: Yes: CTA Bilaterally Gastrointestinal: Yes: Soft Musculoskeletal: Yes: WNL Edema: Yes Edema: LLE: 1+, RLE: 1+ Integumentary: Yes: Venous Stasis Changes Neurological: Yes: Confusion Labs: CBC, BMP 08/02/20 13:20 08/02/20 13:20 Imaging - Results Chest X-ray: Report Reviewed Problem List - Problems (1) Hyperkalemia Code(s): E87.5 - HYPERKALEMIA (2) CKD (chronic kidney disease) stage 3, GFR 30-59 ml/min Code(s): N18.3 - CHRONIC KIDNEY DISEASE, STAGE 3 (MODERATE) * DO NOT USE * Qualifiers: Chronic kidney disease stage 3 subtype: unspecified whether 3a or 3b Qualified Code(s): N18.30 - Chronic kidney disease, stage 3 unspecified Assessment/Plan Current Medications Generic Name Dose Route Start Last Admin Trade Name Freq PRN Reason Stop Dose Admin Acetaminophen 650 mg 08/01/20 15:40 Tylenol - PO Q6H PRN PAIN LEVEL 6-10 Albuterol/Ipratropium 1 amp 08/01/20 06:54 Duoneb - NEB Q4H PRN SHORTNESS OF BREATH Apixaban 10 mg 08/01/20 13:00 08/02/20 11:19 Eliquis - PO 08/07/20 22:01 10 mg BID SHAYE Administration Lidocaine 1 patch 08/01/20 16:00 08/02/20 11:19 Lidoderm Patch - TP 1 patch DAILY SHAYE Administration Methadone HCl 80 mg/ Methadone 110 mg 08/02/20 06:00 08/02/20 11:18 HCl 30 mg PO 110 mg DAILY@0600 SHAYE Administration Miscellaneous 1 each 08/01/20 22:00 08/01/20 23:00 Lidoderm Patch Removal MC Not Given DAILY@2200 SHAYE Pantoprazole Sodium 40 mg 08/01/20 10:00 08/02/20 11:20 Protonix - PO 40 mg DAILY SHAYE Administration Sodium Zirconium Cyclosilicate 5 gm 08/02/20 15:00 Lokelma PO DAILY SHAYE Tamsulosin HCl 0.4 mg 08/01/20 08:30 08/02/20 11:19 Flomax - PO 0.4 mg DAILY@0830 SHAYE Administration Impression 1. CKD 2. hyperkalemia 3. multi drug abuse 4. bph 5. bilateral lower ext dvt 6. copd Plan - will give a dose of lokelma - will give fluids to help increase renal tubular flow - repeat labs in am - low potassium renal diet - lasix if he develops overload
[2020-08-02] MEDS ORDERED: SODIUM CHLORIDE 0.45% 1,000 ML IV SCH (15:15)
--- NOTE | 2020-08-02 15:27 | CONSULT ---
- Consultation REQUESTING PROVIDER: CONSULT REQUEST: We have been asked to surgically evaluate this patient for DVT. Hospitalist:Bill Newell NP HISTORY OF PRESENT ILLNESS: The patient is a 64 yo male who presented for pain to his LLE. he was seen on 07/26 for a similar complaints and found to have a Left leg DVT and was started on eliquis and sent back to [facility]. He returned 07/31 for similar complaints and b/l LE imagining was obtained which revealed b/l nonocclusive thrombus in superficial femoral/popliteal veins. Good flow in common femoral/greater saphrenous veins. He is a poor historian and is unable to give an adequate time line. He states that he didn't like treatment in the past with lovenox/coumadin. He declines any invasive procedures to be completed. PMHx: COPD, chronic DVT, Elevated PSA Home Medications Medication Instructions Recorded Aspirin [ASA -] 81 mg PO DAILY 01/04/18 Tamsulosin HCl [Flomax] 0.4 mg PO DAILY 01/04/18 Allergies Allergy/AdvReac Type Severity Reaction Status Date / Time No Known Allergies Allergy Verified 07/31/20 13:24 REVIEW OF SYSTEMS: unable to obtain PHYSICAL EXAM: GENERAL: Awake, alert, and fully oriented, in no acute distress. Pt refuses examine. leg dressing just changed by nursing staff. Vital Signs Temperature 98 F 08/02/20 14:05 Pulse Rate 86 08/02/20 14:05 Respiratory Rate 18 08/02/20 14:05 Blood Pressure 123/81 08/02/20 14:05 O2 Sat by Pulse Oximetry (%) 95 08/02/20 09:00 Lab Results WBC 7.1 K/mm3 (4.0-10.0) 08/02/20 13:20 RBC 3.02 M/mm3 (4.00-5.60) L 08/02/20 13:20 Hgb 8.4 GM/dL (11.7-16.9) L 08/02/20 13:20 Hct 27.1 % (35.4-49) L 08/02/20 13:20 MCV 89.9 fl (80-96) 08/02/20 13:20 MCHC 30.9 g/dl (32.0-35.9) L 08/02/20 13:20 RDW 17.5 % (11.9-15.9) H 08/02/20 13:20 Plt Count 219 K/MM3 (134-434) 08/02/20 13:20 INR 1.25 (0.83-1.09) H 07/31/20 16:50 Sodium 139 mmol/L (136-145) 08/02/20 13:20 Potassium 5.7 mmol/L (3.5-5.1) H 08/02/20 13:20 Chloride 108 mmol/L (98-107) H 08/02/20 13:20 Carbon Dioxide 28 mmol/L (21-32) 08/02/20 13:20 Anion Gap 3 MMOL/L (8-16) L 08/02/20 13:20 BUN 30.1 mg/dL (7-18) H 08/02/20 13:20 Creatinine 2.1 mg/dL (0.55-1.3) H 08/02/20 13:20 Random Glucose 99 mg/dL (74-106) 08/02/20 13:20 Calcium 9.2 mg/dL (8.5-10.1) 08/02/20 13:20 Blood Type O POSITIVE 07/31/20 16:50 Antibody Screen Negative 07/31/20 16:50 US findings: as above Problem List - Problems (1) DVT (deep venous thrombosis) Assessment/Plan: Case D/w Dr Dias and studies reviewed. His studies reveal non-occlusive thrombus to superficial and popliteal veins b/l-appearing to be chronic in nature. At this time, no indication for ICV filter. He does have an positive fecal occult test but his H&H remains stable and would recommend to continue treatment with eliquis. THe chronicity of the thrombus is unclear, the pt is a poor historian and doesn't answer questions fully. Given this information would continue eliquis. Plan d/w the medical team. Plan for discharge with eliquis x 1 month. Have the patient follow up in 1 month in the vascular clinic for repeat imaging. Also, he is to follow up with the hospitalist outpt clinic services. Problems reviewed: Yes Code(s): I82.409 - ACUTE EMBOLISM AND THOMBOS UNSP DEEP VN UNSP LOWER EXTREMITY
[2020-08-02] MEDS: SODIUM ZIRCONIUM CYCLOSILICATE (LOKELMA) 5 GM PACKET PO SCH (16:11)
--- NOTE | 2020-08-02 16:57 | PN.GI ---
GI Progress Note Subjective: Patient difficult to speak to. Denies medical problems - Objective Vital Signs: Vital Signs Temperature 98 F 08/02/20 14:05 Pulse Rate 85 08/02/20 16:14 Respiratory Rate 18 08/02/20 16:14 Blood Pressure 123/81 08/02/20 14:05 O2 Sat by Pulse Oximetry (%) 95 08/02/20 09:00 Constitutional: Calm Eyes: No: Sclera Icterus Cardiovascular: Yes: Regular Rate and Rhythm, Murmur Respiratory: Yes: CTA Bilaterally Gastrointestinal Inspection: Yes: Hernia (Left sided scrotal hernia) ...Auscultate: Yes: Normoactive Bowel Sounds ...Palpate: Yes: Soft. No: Tenderness ...Percussion: No: Tympanitic Edema: Yes Neurological: Yes: Alert Labs: CBC, BMP 08/02/20 13:20 08/02/20 13:20 INR, PTT INR 1.25 (0.83-1.09) H 07/31/20 16:50 Problem List - Problems (1) Anemia Assessment/Plan: Limited evaluation today allowed by patient Discussed his anemia, the fact that he has occult blood in stool. To evaluate for GI source of blood loss (gave examples like but not limited to bleeding blood vessels, ulcers, polyps, cancers of the GI tract such as colon cancer), discussed upper endoscopy and colonoscopy. Discussed potential risks of the procedures like but not limited to bleeding, perforation, infection, sedation medication effects all of which could be potentially life threatening. He stated that he would like to read literature about the procedures and think about it. I advised his nurse regarding this and asked if literature could be provided. He will need his scrotal hernia evaluated by surgery and further imaging. If it is not reducible and contains colon, this may preclude safe colonoscopy. Recall if patient amenable to endoscopic evaluation and when scrotal hernia has been evaluated [facility] Code(s): D64.9 - ANEMIA, UNSPECIFIED
[2020-08-02] MEDS: AMOX TR/POT CLAV 500MG/125MG TABLETS (FP) PO SCH (18:06)
[2020-08-02] MEDS: LIDOCAINE PATCH REMOVAL MC SCH (21:21)
[2020-08-03] MEDS ORDERED: METHADONE HCL 40 MG DISPERSABLE TABLET ONE (05:36)
[2020-08-03] MEDS ORDERED: METHADONE HCL 10 MG TABLET ONE (05:37)
[2020-08-03 06:49] LABS: HEMATOCRIT 25.2 % (35.4-49); HEMOGLOBIN 8.1 GM/dL (11.7-16.9); MEAN CELL VOLUME 90.4 fl (80-96); MEAN PLT VOLUME 8.2 fl (7.5-11.1); PLATELET COUNT 168 K/MM3 (134-434); RBC 2.79 M/mm3 (4.00-5.60); RDW 17.9 % (11.9-15.9); WHITE BLOOD COUNT 4.7 K/mm3 (4.0-10.0)
[2020-08-03 07:04] LABS: POTASSIUM 4.6 mmol/L (3.5-5.1)
[2020-08-03 07:06] LABS: ALBUMIN 2.5 g/dl (3.4-5.0); BLOOD UREA NITROGEN 30.1 mg/dL (7-18); CALCIUM 8.3 mg/dL (8.5-10.1)
[2020-08-03 07:09] LABS: CREATININE 1.9 mg/dL (0.55-1.3)
[2020-08-03 07:11] LABS: BILIRUBIN,TOTAL 0.1 mg/dL (0.2-1); TOT PROT 6.6 g/dl (6.4-8.2)
[2020-08-03] MEDS: METHADONE 80 MG, METHADONE 30 MG PO SCH (09:08)
[2020-08-03] MEDS: TAMSULOSIN HCL 0.4 MG CAP PO SCH (09:09)
[2020-08-03] MEDS: APIXABAN 5 MG TABLET PO SCH ×2 (09:09→21:55)
[2020-08-03] MEDS: PANTOPRAZOLE 40 MG TABLET PO SCH (09:09)
[2020-08-03] MEDS: AMOX TR/POT CLAV 500MG/125MG TABLETS (FP) PO SCH ×2 (09:09→17:01)
[2020-08-03] MEDS: LIDOCAINE 5% TOPICAL PATCH TP SCH (09:10)
[2020-08-03] MEDS: SODIUM ZIRCONIUM CYCLOSILICATE (LOKELMA) 5 GM PACKET PO SCH (09:11)
--- NOTE | 2020-08-03 13:05 | PN ---
Progress Note, Physician History of Present Illness: stable no new issues - Current Medication List Current Medications: Active Medications Acetaminophen (Tylenol -) 650 mg PO Q6H PRN PRN Reason: PAIN LEVEL 6-10 Last Admin: 08/02/20 21:21 Dose: 650 mg Documented by: Albuterol/Ipratropium (Duoneb -) 1 amp NEB Q4H PRN PRN Reason: SHORTNESS OF BREATH Amoxicillin/Clavulanate Potassium (Augmentin - 500mg Tablet) 1 tab PO BID@0800,1730 [facility] Last Admin: 08/03/20 09:09 Dose: 1 tab Documented by: Apixaban (Eliquis -) 10 mg PO BID [facility] Stop: 08/07/20 22:01 Last Admin: 08/03/20 09:09 Dose: 10 mg Documented by: Sodium Chloride (1/2 Normal Saline) 1,000 mls @ 50 mls/hr IV ASDIR [facility] Stop: 08/03/20 15:01 Last Admin: 08/02/20 16:10 Dose: 50 mls/hr Documented by: Lidocaine (Lidoderm Patch -) 1 patch TP DAILY [facility] Last Admin: 08/03/20 09:10 Dose: 1 patch Documented by: Methadone HCl 80 mg/ Methadone (HCl 30 mg) 110 mg PO DAILY@0600 [facility] Last Admin: 08/03/20 09:08 Dose: 110 mg Documented by: Miscellaneous (Lidoderm Patch Removal) 1 each MC DAILY@2200 [facility] Last Admin: 08/02/20 21:21 Dose: Not Given Documented by: Pantoprazole Sodium (Protonix -) 40 mg PO DAILY [facility] Last Admin: 08/03/20 09:09 Dose: 40 mg Documented by: Sodium Zirconium Cyclosilicate (Lokelma) 10 gm PO DAILY [facility] Last Admin: 08/03/20 09:11 Dose: 10 gm Documented by: Tamsulosin HCl (Flomax -) 0.4 mg PO DAILY@0830 [facility] Last Admin: 08/03/20 09:09 Dose: 0.4 mg Documented by: - Objective Vital Signs: Vital Signs Temperature 98 F 08/03/20 06:00 Pulse Rate 80 08/03/20 10:00 Respiratory Rate 18 08/03/20 10:00 Blood Pressure 118/70 08/03/20 10:00 O2 Sat by Pulse Oximetry (%) 96 08/03/20 10:00 Constitutional: Yes: No Distress, Calm Cardiovascular: Yes: S1, S2 Respiratory: Yes: Regular, CTA Bilaterally Gastrointestinal: Yes: Normal Bowel Sounds, Soft Musculoskeletal: Yes: WNL Extremities: Yes: Other Integumentary: Yes: Other Wound/Incision: Yes: Other (multiple wounds) Neurological: Yes: Alert Labs: CBC, BMP 08/03/20 06:30 08/03/20 06:30 INR, PTT INR 1.25 (0.83-1.09) H 07/31/20 16:50 Assessment/Plan 1. CKD 2. hyperkalemia 3. multi drug abuse 4. bph 5. bilateral lower ext dvt 6. copd plan continue oral abx rest as per the team
[2020-08-03] MEDS ORDERED: DIPHENOXYLATE 2.5/ATROPINE.025 1 COMBO TABLET PO ONE (15:05)
--- NOTE | 2020-08-03 15:56 | PN ---
Physical Exam: SUBJECTIVE: Patient seen and examined. He denies any malaise or chest pain.. OBJECTIVE: Patient is a 64 year old male with a significant past medical history of chronic LE DVT's (on and off with AC therapy), COPD, PSA with crack/cocaine/heroin/active smoker, BPH, depression, presents from [facility] after complaining his "legs hurt". Patient was seen in ED 3-4 days ago where LLE was found and pt. was started on Eliquis 10mg BID and discharged back to [facility]. Patient however denies fever/chills/cough/SOB/CP/recent travel or COVID exposure. patient non compliant with Eliquis. he is refusing to go back to [facility] and wanted to sign out AMA today, then agreed to stay for evaluation of anemia, DVTs and leg wounds. Hyperkalemia resolved, patient to be discharged tomorrow after his methadone is given. He is refusing to have any further workup. Vital Signs Period Temp Pulse Resp BP Sys/Nicolas Pulse Ox Last 24 Hr 97.6 F-98 F 80-100 18-20 112-148/53-78 95-96 GENERAL: The patient is awake, alert, and fully oriented, in no acute distress. tolerating room air. disheveled. pt is homeless HEAD: Normal with no signs of trauma. EYES: PERRL, extraocular movements intact, sclera anicteric, conjunctiva clear. No ptosis. ENT: Ears normal, nares patent, oropharynx clear without exudates NECK: Trachea midline, full range of motion, supple. LUNGS: Breath sounds equal, clear to auscultation bilaterally HEART: Regular rate and rhythm ABDOMEN: Soft, nontender, nondistended, normoactive bowel sounds EXTREMITIES: left forearm fistula?. small bruit heard on this site, patient denies having a fistula and did not allow me to re assess site. NEUROLOGICAL: Normal speech, gait not observed. PSYCH: Normal mood, normal affect. SKIN: bilateral foot wound, +2 edema bilaterally, left leg redness, likely cellulitis, on augmentin Laboratory Results - last 24 hr 08/02/20 08/03/20 08/03/20 21:13 06:30 06:30 WBC 4.7 RBC 2.79 L Hgb 8.1 L Hct 25.2 L MCV 90.4 MCH 29.0 MCHC 32.0 RDW 17.9 H Plt Count 168 D MPV 8.2 PTT (Actin FS) 32.2 Sodium Potassium Chloride Carbon Dioxide Anion Gap BUN Creatinine Est GFR (CKD-EPI)AfAm Est GFR (CKD-EPI)NonAf POC Glucometer 103 Random Glucose Calcium Total Bilirubin AST ALT Alkaline Phosphatase Total Protein Albumin 08/03/20 06:30 WBC RBC Hgb Hct MCV MCH MCHC RDW Plt Count MPV PTT (Actin FS) Sodium 141 Potassium 4.6 Chloride 110 H Carbon Dioxide 25 Anion Gap 5 L BUN 30.1 H Creatinine 1.9 H Est GFR (CKD-EPI)AfAm 41.65 Est GFR (CKD-EPI)NonAf 35.94 POC Glucometer Random Glucose 85 Calcium 8.3 L Total Bilirubin 0.1 L AST 19 ALT 19 Alkaline Phosphatase 89 Total Protein 6.6 Albumin 2.5 L Active Medications Generic Name Dose Route Start Last Admin Trade Name Freq PRN Reason Stop Dose Admin Acetaminophen 650 mg 08/01/20 15:40 08/02/20 21:21 Tylenol - PO 650 mg Q6H PRN Administration PAIN LEVEL 6-10 Albuterol/Ipratropium 1 amp 08/01/20 06:54 Duoneb - NEB Q4H PRN SHORTNESS OF BREATH Amoxicillin/Clavulanate Potassium 1 tab 08/02/20 17:30 08/03/20 09:09 Augmentin - 500mg Tablet PO 1 tab BID@0800,1730 SHAYE Administration Apixaban 10 mg 08/01/20 13:00 08/03/20 09:09 Eliquis - PO 08/07/20 22:01 10 mg BID SHAYE Administration Lidocaine 1 patch 08/01/20 16:00 08/03/20 09:10 Lidoderm Patch - TP 1 patch DAILY SHAYE Administration Methadone HCl 80 mg/ Methadone 110 mg 08/02/20 06:00 08/03/20 09:08 HCl 30 mg PO 110 mg DAILY@0600 SHAYE Administration Miscellaneous 1 each 08/01/20 22:00 08/02/20 21:21 Lidoderm Patch Removal MC Not Given DAILY@2200 SHAYE Pantoprazole Sodium 40 mg 08/01/20 10:00 08/03/20 09:09 Protonix - PO 40 mg DAILY SHAYE Administration Sodium Zirconium Cyclosilicate 10 gm 08/02/20 15:15 08/03/20 09:11 Lokelma PO 10 gm DAILY SHAYE Administration Tamsulosin HCl 0.4 mg 08/01/20 08:30 08/03/20 09:09 Flomax - PO 0.4 mg DAILY@0830 SHAYE Administration ASSESSMENT/PLAN: Problem List - Problems (1) Cellulitis Assessment/Plan: left lower ext cellulitis ID consulted and recommended Augmentin Vascular consulted and following Code(s): L03.90 - CELLULITIS, UNSPECIFIED (2) Homeless Assessment/Plan: patient without clothes or shoes. disheveled. tells me that he is homeless and asking for boots for his feet shoes for patient provided by sr. social media & mobile manager, clothes also provided. SW consulted for help with fpc placement Code(s): Z59.0 - HOMELESSNESS (3) Non compliance w medication regimen Assessment/Plan: patient reports non compliance with eliquis and antibiotics for his leg wound Code(s): Z91.14 - PATIENT'S OTHER NONCOMPLIANCE WITH MEDICATION REGIMEN (4) Alcohol dependence with uncomplicated withdrawal Code(s): F10.230 - ALCOHOL DEPENDENCE WITH WITHDRAWAL, UNCOMPLICATED (5) DVT, femoral, acute Assessment/Plan: DVT for a few months per patient, non compliant with Eliquis. He is insured but tells me that he has been on and off anticoagulations. started on eliquis 10mg bid x 7 days then eliquis 5mg bid. Code(s): I82.419 - ACUTE EMBOLISM AND THROMBOSIS OF UNSPECIFIED FEMORAL VEIN Qualifiers: Laterality: bilateral Qualified Code(s): I82.413 - Acute embolism and thrombosis of femoral vein, bilateral (6) Opioid dependence Assessment/Plan: on methadone program Code(s): F11.20 - OPIOID DEPENDENCE, UNCOMPLICATED Qualifiers: Substance use status: uncomplicated Qualified Code(s): F11.20 - Opioid dependence, uncomplicated (7) CKD (chronic kidney disease) stage 3, GFR 30-59 ml/min Assessment/Plan: monitor kidney function. also with elevated potassium levels. nephrology consulted and following Code(s): N18.3 - CHRONIC KIDNEY DISEASE, STAGE 3 (MODERATE) * DO NOT USE * Qualifiers: Chronic kidney disease stage 3 subtype: unspecified whether 3a or 3b Qualified Code(s): N18.30 - Chronic kidney disease, stage 3 unspecified (8) Methadone maintenance therapy patient Assessment/Plan: methadone confirmed by primary RN on methadone 110mg daily Code(s): F11.20 - OPIOID DEPENDENCE, UNCOMPLICATED (9) Left leg DVT Assessment/Plan: was on heparin drip but d/c as patient was refusing routine blood work to monitor aptt start on eliquis 10mg bid dosing x 7 days then eliquis 5mg bid Code(s): I82.402 - ACUTE EMBOLISM AND THOMBOS UNSP DEEP VEINS OF L LOW EXTREM (10) Hypertension Assessment/Plan: Bp stable, monitor Code(s): I10 - ESSENTIAL (PRIMARY) HYPERTENSION Qualifiers: Hypertension type: essential hypertension Qualified Code(s): I10 - Essential (primary) hypertension (11) Hyperkalemia Assessment/Plan: resolved Code(s): E87.5 - HYPERKALEMIA (12) Anemia Assessment/Plan: Vascular consult for possible IVC filter placement, but surgical interventions are not recommended. for possible EGD/scoping but patient is not agreeing to invasive procedures Code(s): D64.9 - ANEMIA, UNSPECIFIED Visit type - Emergency Visit Emergency Visit: Yes ED Registration Date: 07/31/20 Care time: The patient presented to the Emergency Department on the above date and was hospitalized for further evaluation of their emergent condition. - New Patient This patient is new to me today: No - Critical Care Critical Care patient: No - Discharge Referral Referred to [facility] No - Medication Review Med list reviewed for High Risk Meds patients 65 and older: Yes
[2020-08-03] MEDS: LIDOCAINE PATCH REMOVAL MC SCH (22:07)
[2020-08-04] MEDS ORDERED: METHADONE HCL 40 MG DISPERSABLE TABLET ONE (05:30)
[2020-08-04] MEDS ORDERED: METHADONE HCL 10 MG TABLET ONE (05:31)
[2020-08-04 05:57] VITALS: BP 105/62; PULSE 90; TEMP 97.7
[2020-08-04] MEDS: METHADONE 80 MG, METHADONE 30 MG PO SCH (06:20)
[2020-08-04] MEDS: TAMSULOSIN HCL 0.4 MG CAP PO SCH (08:33)
[2020-08-04] MEDS: AMOX TR/POT CLAV 500MG/125MG TABLETS (FP) PO SCH (08:33)
--- NOTE | 2020-08-04 09:38 | DS ---
Physical Exam: SUBJECTIVE: Patient seen and examined OBJECTIVE: Patient tells me that he has had the scrotal hernia for "a long time" and has been evaluated by physicians in [place]. He wants to follow up with his PCP in [place] . He cannot recall name. Referral to [facility] given but he is refusing to come to [place] for his follow up care. No further workup inpatient as patient is refusing a coat to be provided to him supplies for his foot wounds to be given to him prior to discharge He asked me to call his medications to the [place] pharmacy I told patient numerous times that he is discharged and he would need follow up. I was asked to see patient again as he told staff that I did not say he was going home today. Patient seen today with witnesses, SW (Suzanne Calle). Nurse Chocolatier (Suzanne) and primary nurse (Jeannette) and again explained that he is discharged and that we will need follow up. He wants to go to the doctors in [place] by [facility]. he was provided a coat, pants, wound dressings, and a hat. A cab will be provided to him so that he can be safely discharged Patient is a 64 year old male with a significant past medical history of chronic LE DVT's (on and off with AC therapy), COPD, PSA with crack/cocaine/heroin/active smoker, BPH, depression, presents from [facility] after complaining his "legs hurt". Patient was seen in ED 3-4 days ago where LLE was found and pt. was started on Eliquis 10mg BID and discharged back to [facility]. Patient however denies fever/chills/cough/SOB/CP/recent travel or COVID exposure. patient non compliant with Eliquis. he is refusing to go back to [facility] and wanted to sign out AMA today, then agreed to stay for evaluation of anemia, DVTs and leg wounds. Vital Signs Period Temp Pulse Resp BP Sys/Nicolas Pulse Ox Last 24 Hr 97 F-98 F 80-100 18-20 105-130/62-80 92-96 PHYSICAL EXAM GENERAL: The patient is awake, alert, and fully oriented, in no acute distress. tolerating room air. disheveled. pt is homeless HEAD: Normal with no signs of trauma. EYES: PERRL, extraocular movements intact, sclera anicteric, conjunctiva clear. No ptosis. ENT: Ears normal, nares patent, oropharynx clear without exudates NECK: Trachea midline, full range of motion, supple. LUNGS: Breath sounds equal, clear to auscultation bilaterally HEART: Regular rate and rhythm ABDOMEN: Soft, nontender, nondistended, normoactive bowel sounds EXTREMITIES: left forearm fistula?. small bruit heard on this site, patient denies having a fistula and did not allow me to re assess site. NEUROLOGICAL: Normal speech, gait not observed. PSYCH: Normal mood, normal affect. SKIN: bilateral foot wound, +2 edema bilaterally, left leg redness, likely cellulitis, on augmentin LABS HOSPITAL COURSE: Date of Admission:07/31/20 Date of Discharge: 08/04/20 Minutes to complete discharge: 45 Discharge Summary Problems reviewed: Yes Reason For Visit: OPIOID DEPENDENCE, ALCOHOL DEPENDENCE WITH Current Active Problems Alcohol dependence with uncomplicated withdrawal (Acute) Anemia (Acute) DVT (deep venous thrombosis) (Acute) DVT, femoral, acute (Acute) Homeless (Acute) Hyperkalemia (Acute) Non compliance w medication regimen (Acute) Opioid dependence (Acute) CKD (chronic kidney disease) stage 3, GFR 30-59 ml/min (Chronic) Methadone maintenance therapy patient (Chronic) Condition: Improved - Instructions Diet, Activity, Other Instructions: DISCHARGE YOUR VISIT You came to the hospital because your legs were painful. You have wounds on your legs and you were seen by a wound care team. Follow the wound care instructions below. You were also noted to have a chronic DVT (deep vein thrombosis) and we have put you back on Eliquis. You have told me that you have a doctor in [place]. Please follow up with your doctor (PCP). MEDICATIONS START LOKELMA ONCE per day for 7 more days, you must have your levels checked with your primary care doctor. IF you do not have a PCP, we have referred you to your clinic at [facility] ([address] [place] [address]) CONTINUE the Augmentin for 7 more days twice per day - these are for your leg wounds CONTINUE ELIQUIS 10MG TWICE per day (two tabs of 5mg) UNTIL 08/07, then START Eliquis 5mg TWICE per day. CONTINUE PROTONIX 40MG once per daY DIET Continue your home diet. WOUND CARE Cleanse wound with NS and apply a dry dressing (ANDREW) to protect it. PLEASE CALL THE WOUND CLINIC AND MAKE AN APPT. ADDITIONAL INFORMATION Please call 911 or come directly to the emergency department if you experience unusual headache, vision change, shortness of breath, chest pain, numbness, tingling, loss of alertness/awareness, loss of function, unusual bleeding or any alarming symptoms. Thank you for allowing us to care for you. Referrals: [facility] [place] [Provider Group] ON STAFF,NOT [Non Staff, Medical] - Geo Dias MD [Non Staff, Medical] - 1 Month Disposition: HOME - Home Medications Comprehensive Discharge Medication List: Ambulatory Orders Aspirin [ASA -] 81 mg PO DAILY 01/04/18 Tamsulosin HCl [Flomax -] 0.4 mg PO DAILY 01/04/18 Amox-Tr/K Cl [Augmentin 500-125mg Tablet -] 1 tab PO BID@0800,1730 #14 tablet 08/04/20 Apixaban [Eliquis -] 10 mg PO BID #120 tablet 08/04/20 Lidocaine 5% Patch [Lidoderm -] 1 patch TP DAILY patch 08/04/20 Pantoprazole Sodium [Protonix -] 40 mg PO DAILY #30 tablet.ec 08/04/20 Sodium Zirconium Cyclosilicate [Lokelma] 10 gm PO DAILY #7 packet 08/04/20 Tamsulosin HCl [Flomax -] 0.4 mg PO DAILY@0830 #0 cap.er.24h 08/04/20 Problem List - Problems (1) Cellulitis Code(s): L03.90 - CELLULITIS, UNSPECIFIED (2) Homeless Code(s): Z59.0 - HOMELESSNESS (3) Non compliance w medication regimen Code(s): Z91.14 - PATIENT'S OTHER NONCOMPLIANCE WITH MEDICATION REGIMEN (4) Alcohol dependence with uncomplicated withdrawal Code(s): F10.230 - ALCOHOL DEPENDENCE WITH WITHDRAWAL, UNCOMPLICATED (5) DVT, femoral, acute Code(s): I82.419 - ACUTE EMBOLISM AND THROMBOSIS OF UNSPECIFIED FEMORAL VEIN Qualifiers: Laterality: bilateral Qualified Code(s): I82.413 - Acute embolism and thrombosis of femoral vein, bilateral (6) Opioid dependence Code(s): F11.20 - OPIOID DEPENDENCE, UNCOMPLICATED Qualifiers: Substance use status: uncomplicated Qualified Code(s): F11.20 - Opioid dependence, uncomplicated (7) CKD (chronic kidney disease) stage 3, GFR 30-59 ml/min Code(s): N18.3 - CHRONIC KIDNEY DISEASE, STAGE 3 (MODERATE) * DO NOT USE * Qualifiers: Chronic kidney disease stage 3 subtype: unspecified whether 3a or 3b Qualified Code(s): N18.30 - Chronic kidney disease, stage 3 unspecified (8) Methadone maintenance therapy patient Code(s): F11.20 - OPIOID DEPENDENCE, UNCOMPLICATED (9) Left leg DVT Code(s): I82.402 - ACUTE EMBOLISM AND THOMBOS UNSP DEEP VEINS OF L LOW EXTREM (10) Hypertension Code(s): I10 - ESSENTIAL (PRIMARY) HYPERTENSION Qualifiers: Hypertension type: essential hypertension Qualified Code(s): I10 - Essential (primary) hypertension (11) Hyperkalemia Code(s): E87.5 - HYPERKALEMIA (12) Anemia Code(s): D64.9 - ANEMIA, UNSPECIFIED This patient is new to me today: No Emergency Visit: Yes ED Registration Date: 07/31/20 Care time: The patient presented to the Emergency Department on the above date and was hospitalized for further evaluation of their emergent condition. Critical Care patient: No - Discharge Referral Referred to [facility] Med P.C.: No
[2020-08-04] MEDS: APIXABAN 5 MG TABLET PO SCH (09:45)
[2020-08-04] MEDS: LIDOCAINE 5% TOPICAL PATCH TP SCH (09:45)
[2020-08-04] MEDS: SODIUM ZIRCONIUM CYCLOSILICATE (LOKELMA) 5 GM PACKET PO SCH (09:45)
[2020-08-04] MEDS: PANTOPRAZOLE 40 MG TABLET PO SCH (09:45)
--- NOTE | 2020-08-04 11:44 | PN ---
Progress Note, Physician - Current Medication List Current Medications: Active Medications Acetaminophen (Tylenol -) 650 mg PO Q6H PRN PRN Reason: PAIN LEVEL 6-10 Last Admin: 08/02/20 21:21 Dose: 650 mg Documented by: Albuterol/Ipratropium (Duoneb -) 1 amp NEB Q4H PRN PRN Reason: SHORTNESS OF BREATH Amoxicillin/Clavulanate Potassium (Augmentin - 500mg Tablet) 1 tab PO BID@0800,1730 [facility] Last Admin: 08/04/20 08:33 Dose: 1 tab Documented by: Apixaban (Eliquis -) 10 mg PO BID [facility] Stop: 08/07/20 22:01 Last Admin: 08/04/20 09:45 Dose: 10 mg Documented by: Lidocaine (Lidoderm Patch -) 1 patch TP DAILY [facility] Last Admin: 08/04/20 09:45 Dose: 1 patch Documented by: Methadone HCl 80 mg/ Methadone (HCl 30 mg) 110 mg PO DAILY@0600 [facility] Last Admin: 08/04/20 06:20 Dose: 110 mg Documented by: Miscellaneous (Lidoderm Patch Removal) 1 each MC DAILY@2200 [facility] Last Admin: 08/03/20 22:07 Dose: Not Given Documented by: Pantoprazole Sodium (Protonix -) 40 mg PO DAILY [facility] Last Admin: 08/04/20 09:45 Dose: 40 mg Documented by: Sodium Zirconium Cyclosilicate (Lokelma) 10 gm PO DAILY [facility] Last Admin: 08/04/20 09:45 Dose: 10 gm Documented by: Tamsulosin HCl (Flomax -) 0.4 mg PO DAILY@0830 [facility] Last Admin: 08/04/20 08:33 Dose: 0.4 mg Documented by: - Objective Vital Signs: Vital Signs Temperature 97.7 F 08/04/20 05:56 Pulse Rate 90 08/04/20 05:56 Respiratory Rate 20 08/04/20 05:56 Blood Pressure 105/62 08/04/20 05:56 O2 Sat by Pulse Oximetry (%) 94 L 08/04/20 08:48 Labs: CBC, BMP 08/03/20 06:30 08/03/20 06:30 INR, PTT INR 1.25 (0.83-1.09) H 07/31/20 16:50
== END 2020-08-04 12:00 | disposition home or self-care (01) | DRG 603 ==
LOC: JER 12:38 → JERBED 17:01 → J4W 08-01 15:44
PROVIDERS: ATTEND Nurse Practitioner Family
PROC: HZ91ZZZ Pharmacotherapy for Substance Abuse Treatment, Methadone Maintenance (ICD-10-PCS; principal; 2020-07-31)
DX: L03.116 Cellulitis of left lower limb (principal); I82.5Z3 Chronic embolism and thrombosis of unspecified deep veins of distal lower extremity, bilateral; F11.20 Opioid dependence, uncomplicated; F10.230 Alcohol dependence with withdrawal, uncomplicated; L03.115 Cellulitis of right lower limb; E87.5 Hyperkalemia; D63.1 Anemia in chronic kidney disease; B19.20 Unspecified viral hepatitis C without hepatic coma; N40.0 Benign prostatic hyperplasia without lower urinary tract symptoms; F32.9 Major depressive disorder, single episode, unspecified; J44.9 Chronic obstructive pulmonary disease, unspecified; I12.9 Hypertensive chronic kidney disease with stage 1 through stage 4 chronic kidney disease, or unspecified chronic kidney disease; N18.30 Chronic kidney disease, stage 3 unspecified; Z59.0 Homelessness; Z91.14 Patient's other noncompliance with medication regimen
CPT/HCPCS: 36415; 71045-TC-FY; 80053; 80061; 80074; 82272; 82962; 83036; 83721; 83735; 84443; 85025; 85027; 85610; 85730; 86850; 86900; 86901; 93005; 93010; 93970-TC; 99285-25; J0131; J1644

== ENCOUNTER 2022-10-02 17:42 | Inpatient (IN) | payer OTHER ==
[~2022-10-02 17:42] MED LIST: chlordiazePOXIDE HCL 25 MG CAPSULE PO SCH
[2022-10-02 18:02] VITALS: BMI 21.2
[2022-10-02] MEDS ORDERED: chlordiazePOXIDE HCL 25 MG CAPSULE PO PRN (19:08)
[2022-10-02] MEDS ORDERED: methaDONE HCL 10 MG TABLET (FOR DETOX USE ONLY) PO ONE ×2 (19:08→22:30)
[2022-10-02] MEDS ORDERED: cloNIDine HCL 0.1 MG TABLET PO PRN (19:08)
[2022-10-02] MEDS ORDERED: MAG HYDROX/AL HYDROX/SIMETH 30 ML UNIT-DOSE CUP PO PRN (19:52)
[2022-10-02] MEDS ORDERED: ACETAMINOPHEN 325 MG TABLET (FP) PO PRN ×2 (19:52)
[2022-10-02] MEDS ORDERED: LOPERAMIDE HCL 2 MG CAPSULE PO PRN (19:52)
[2022-10-02] MEDS ORDERED: IBUPROFEN 600 MG TABLET (FP) PO PRN (19:52)
[2022-10-02] MEDS ORDERED: NALOXONE HCL (KLOXXADO) 8 MG SPRAY NS PRN (19:52)
[2022-10-02] MEDS ORDERED: MAGNESIUM HYDROX 2400MG/30ML ORAL SUSPENSION 30 ML CUP PO PRN (19:52)
[2022-10-02] MEDS ORDERED: BISMUTH SUBSALICYLATE 524 MG/30 ML PO PRN (19:52)
[2022-10-02] MEDS ORDERED: ONDANSETRON *ODT* 4 MG TABLET SL PRN (19:52)
[2022-10-02] MEDS ORDERED: METHOCARBAMOL 500 MG TABLET PO PRN (19:52)
[2022-10-02] MEDS ORDERED: IBUPROFEN 400 MG TABLET (FP) PO PRN (19:52)
[2022-10-02] MEDS ORDERED: NICOTINE 10 MG CARTRIDGE (INHALER) IH PRN (19:52)
[2022-10-02] MEDS ORDERED: POLYETHYLENE GLYCOL (HEALTHYLAX) 3350 17 GM PACKET PO PRN (19:52)
[2022-10-02] MEDS ORDERED: BENZOCAINE/MENTHOL (CHLORASEPTIC ) LOZENGE MM PRN (19:52)
[2022-10-02] MEDS ORDERED: hydrOXYzine PAMOATE 25 MG CAPSULE (FP) PO PRN (19:52)
[2022-10-02] MEDS ORDERED: DICYCLOMINE HCL 10 MG CAPSULE PO PRN (19:52)
[2022-10-02] MEDS: THIAMINE HCL 100 MG TABLET (FP) PO SCH (22:55)
[2022-10-02] MEDS: MELATONIN 5 MG TABLETS PO SCH (22:55)
[2022-10-02] MEDS: chlordiazePOXIDE HCL 25 MG CAPSULE PO SCH (22:58)
[2022-10-02] MEDS: ASPIRIN 81 MG CHEWABLE TABLETS PO SCH (23:06)
[2022-10-02] MEDS: PRENATAL VITAMINS W/ FOLIC ACID TABLET (FP) PO SCH (23:07)
[2022-10-03] MEDS: chlordiazePOXIDE HCL 25 MG CAPSULE PO SCH ×4 (05:33→22:09)
[2022-10-03] MEDS: AMOX TR/POT CLAV 500MG/125MG TABLETS (FP) PO SCH ×2 (08:55→17:46)
[2022-10-03] MEDS: PRENATAL VITAMINS W/ FOLIC ACID TABLET (FP) PO SCH (10:11)
[2022-10-03] MEDS: ASPIRIN 81 MG CHEWABLE TABLETS PO SCH (10:12)
[2022-10-03] MEDS: TAMSULOSIN HCL 0.4 MG CAP PO SCH (10:13)
[2022-10-03] MEDS ORDERED: methaDONE HCL 10 MG TABLET PO SCH (10:30)
[2022-10-03 11:47] LABS: HEMATOCRIT 24.6 % (35.4-49); MCHC 32.4 g/dl (32.0-35.9); MEAN CELL VOLUME 86.6 fl (80-96); MEAN PLT VOLUME 8.2 fl (7.5-11.1); PLATELET COUNT 210 10^3/uL (134-434); RBC 2.84 M/mm3 (4.00-5.60); RDW 16.9 % (11.9-15.9)
[2022-10-03 11:53] LABS: CALCIUM 8.8 mg/dL (8.5-10.1)
[2022-10-03 11:54] LABS: ALBUMIN 2.7 g/dl (3.4-5.0)
[2022-10-03] MEDS: methaDONE 80 MG, methaDONE 20 MG PO SCH (11:55)
[2022-10-03 11:57] LABS: CREATININE 2.3 mg/dL (0.55-1.3)
[2022-10-03 11:58] LABS: BILIRUBIN,TOTAL 0.2 mg/dL (0.2-1)
[2022-10-03] MEDS: THIAMINE HCL 100 MG TABLET (FP) PO SCH (22:08)
[2022-10-03] MEDS: MELATONIN 5 MG TABLETS PO SCH (22:08)
[2022-10-04] MEDS ORDERED: APIXABAN 5 MG TABLET PO ONE ×2 (01:30→12:00)
[2022-10-04] MEDS: methaDONE 80 MG, methaDONE 20 MG PO SCH (05:15)
[2022-10-04] MEDS: chlordiazePOXIDE HCL 25 MG CAPSULE PO SCH ×4 (05:15→23:25)
[2022-10-04] MEDS: AMOX TR/POT CLAV 500MG/125MG TABLETS (FP) PO SCH ×2 (07:26→17:55)
[2022-10-04] MEDS ORDERED: methaDONE HCL 10 MG TABLET (FOR DETOX USE ONLY) PO ONE (10:00)
[2022-10-04] MEDS: ASPIRIN 81 MG CHEWABLE TABLETS PO SCH (10:53)
[2022-10-04] MEDS: TAMSULOSIN HCL 0.4 MG CAP PO SCH (10:53)
[2022-10-04] MEDS: PRENATAL VITAMINS W/ FOLIC ACID TABLET (FP) PO SCH (10:53)
[2022-10-04] MEDS: APIXABAN 5 MG TABLET PO SCH ×2 (11:40→11:42)
[2022-10-04 13:20] VITALS: RESP 18
[2022-10-04] MEDS ORDERED: SODIUM POLYSTYRENE SULFONATE 15 GM/60 ML BOTTLE PO ONE (15:28)
[2022-10-04 16:44] VITALS: BP 108/55; PULSE 98; TEMP 98.6
[2022-10-04] MEDS ORDERED: APIXABAN 5 MG TABLET PO SCH (22:00)
[2022-10-04] MEDS: MELATONIN 5 MG TABLETS PO SCH (23:24)
[2022-10-04] MEDS: THIAMINE HCL 100 MG TABLET (FP) PO SCH (23:25)
[2022-10-05] MEDS ORDERED: chlordiazePOXIDE HCL 10 MG CAPSULE PO PRN
[2022-10-05] MEDS ORDERED: chlordiazePOXIDE HCL 10 MG CAPSULE PO SCH (05:00)
[2022-10-06] MEDS ORDERED: chlordiazePOXIDE HCL 10 MG CAPSULE PO SCH (05:00)
[2022-10-06] MEDS ORDERED: methaDONE HCL 10 MG TABLET (FOR DETOX USE ONLY) PO ONE (10:00)
[2022-10-07] MEDS ORDERED: chlordiazePOXIDE HCL 10 MG CAPSULE PO ONE (05:00)
== END 2022-10-04 18:42 | disposition short-term general hospital (02) | DRG 897 ==
LOC: YASAS 17:42 → Y3N 22:10
PROVIDERS: ADMIT Allergy & Immunology; ATTEND Surgery
PROC: HZ2ZZZZ Detoxification Services for Substance Abuse Treatment (ICD-10-PCS; principal; 2022-10-02)
DX: F10.230 Alcohol dependence with withdrawal, uncomplicated (principal); F11.20 Opioid dependence, uncomplicated; E87.0 Hyperosmolality and hypernatremia; L97.829 Non-pressure chronic ulcer of other part of left lower leg with unspecified severity; I10 Essential (primary) hypertension; E87.5 Hyperkalemia; D64.9 Anemia, unspecified; J44.9 Chronic obstructive pulmonary disease, unspecified; R77.0 Abnormality of albumin; N40.0 Benign prostatic hyperplasia without lower urinary tract symptoms; Z91.81 History of falling; W18.39XA Other fall on same level, initial encounter; Y93.9 Activity, unspecified; Y92.231 Patient bathroom in hospital as the place of occurrence of the external cause; Z28.310 Unvaccinated for COVID-19; Z86.19 Personal history of other infectious and parasitic diseases; Z86.718 Personal history of other venous thrombosis and embolism; Z79.01 Long term (current) use of anticoagulants; Z56.0 Unemployment, unspecified
CPT/HCPCS: 36415; 80053; 85027; C9803-CS; U0003; U0005

== ENCOUNTER 2022-10-04 18:00 | Inpatient (IN) | payer OTHER ==
[~2022-10-04 18:00] MED LIST changes: +LORazepam 1 MG TABLET PO SCH; -chlordiazePOXIDE HCL 25 MG CAPSULE PO SCH
[2022-10-04] MEDS ORDERED: SODIUM CHLORIDE IV ONE (18:24)
[2022-10-04] MEDS ORDERED: LACTATED RINGERS SOLUTION 1,000 ML/1,000 ML INFUS.BAG IV SCH (19:30)
[2022-10-04] MEDS ORDERED: DALBAVANCIN HCL 1,125 MG in DEXTROSE 5%-WATER - 500 ML IVPB ONE (19:46)
[2022-10-04] MEDS ORDERED: DALBAVANCIN HCL 500 MG VIAL (RESTRICTED TO ID ONLY) IVPB ONE (20:10)
[2022-10-04 20:30] LABS: BASO % 0.8 % (0-2.0); EOS % 0.9 % (0-4.5); HEMOGLOBIN 9.2 GM/dL (11.7-16.9); LYMPH % 14.5 % (8-40); MCH 26.7 pg (25.7-33.7); MCHC 30.7 g/dl (32.0-35.9); MEAN CELL VOLUME 86.8 fl (80-96); MEAN PLT VOLUME 8.4 fl (7.5-11.1); MONO % 7.1 % (3.8-10.2); NEUT % 76.7 % (42.8-82.8); PLATELET COUNT 258 10^3/uL (134-434); RBC 3.45 M/mm3 (4.00-5.60); RDW 17.2 % (11.9-15.9); WHITE BLOOD COUNT 7.6 K/mm3 (4.0-10.0)
[2022-10-04 20:38] LABS: INR 1.09 (0.83-1.09); PROTHROMBIN TIME (PATIENT) 12.6 SEC (9.7-13.0)
[2022-10-04 20:40] LABS: VENOUS BASE EXCESS -0.8 mmol/L (-2-2); VENOUS PCO2 53.9 mmHg (38-52)
[2022-10-04 20:41] LABS: ACTIVATED PTT 32.3 SECONDS (25.2-36.5)
[2022-10-04 20:52] LABS: ALBUMIN 2.8 g/dl (3.4-5.0); BLOOD UREA NITROGEN 65.7 mg/dL (7-18); CALCIUM 8.9 mg/dL (8.5-10.1)
[2022-10-04 20:55] LABS: CREATININE 2.2 mg/dL (0.55-1.3)
[2022-10-04 20:57] LABS: BILIRUBIN,TOTAL 0.4 mg/dL (0.2-1); TOT PROT 7.4 g/dl (6.4-8.2)
[2022-10-04 20:58] LABS: N-TERMINAL BNP 3228.4 pg/ml (5-125)
[2022-10-04 21:24] LABS: EPI CELLS 6 /uL (0-25.1); HYALINE CASTS 0 /uL (0-3.1); URINE APPEARANCE CLEAR; URINE BACTERIA 16 /uL (0-1359); URINE BILIRUBIN NEGATIVE (NEGATIVE); URINE COLOR YELLOW; URINE GLUCOSE (UA) NEGATIVE (NEGATIVE); URINE KETONE NEGATIVE (NEGATIVE); URINE LEUK ESTERASE 1+ (NEGATIVE); URINE NITRITE NEGATIVE (NEGATIVE); URINE PROTEIN TRACE (NEGATIVE); URINE RBC 4 /uL (0-23.9); URINE UROBILINOGEN 0.2 mg/dL (0.2-1.0); URINE WBC 10 /uL (0-25.8)
[2022-10-04] MEDS ORDERED: PIPERACILLIN/TAZOB 4.5 GM 4.5 GM in DEXTROSE 5%-WATER 100 ML IVPB ONE (21:45)
[2022-10-04] MEDS ORDERED: LORazepam 1 MG TABLET PO PRN (23:40)
[2022-10-04] MEDS ORDERED: LORazepam 1 MG TABLET PO ONE (23:40)
[2022-10-05] MEDS ORDERED: HALOPERIDOL DECANOATE 500 MG/5ML MDV IM ONE (00:08)
[2022-10-05] MEDS ORDERED: HALOPERIDOL LACTATE 5 MG/ML IM ONE (00:08)
[2022-10-05] MEDS ORDERED: LORazepam 2 MG/ML SDV VIAL IVPUSH ONE (00:08)
[2022-10-05] MEDS ORDERED: LORazepam 1 MG TABLET ONE (05:09)
[2022-10-05] MEDS ORDERED: APIXABAN 5 MG TABLET ONE ×2 (05:09→11:44)
[2022-10-05] MEDS: APIXABAN 5 MG TABLET PO SCH ×3 (05:17→22:47)
[2022-10-05] MEDS: LORazepam 1 MG TABLET PO SCH ×2 (05:17→12:15)
[2022-10-05 08:27] LABS: CALCIUM 9.2 mg/dL (8.5-10.1)
[2022-10-05 08:28] LABS: ALBUMIN 2.6 g/dl (3.4-5.0); BLOOD UREA NITROGEN 57.9 mg/dL (7-18); MAGNESIUM 2.3 mg/dL (1.8-2.4)
[2022-10-05 08:30] LABS: BILIRUBIN,TOTAL 0.4 mg/dL (0.2-1); TOT PROT 7.3 g/dl (6.4-8.2)
[2022-10-05 08:32] LABS: CREATININE 2.1 mg/dL (0.55-1.3); PHOSPHOROUS 3.2 mg/dL (2.5-4.9)
[2022-10-05] MEDS ORDERED: INSULIN REGULAR HUMAN 100 UNITS/ML *VIAL SQ ONE (09:05)
[2022-10-05] MEDS ORDERED: DEXTROSE 50%-WATER 25 GM/50 ML DISP.SYRIN IVPUSH ONE (09:06)
[2022-10-05 09:26] LABS: COCAINE, UR NEGATIVE (NEGATIVE); OPIATES, URI NEGATIVE (NEGATIVE); PHENCYCLIDINE,URINE NEGATIVE (NEGATIVE); URINE BARBITURATES NEGATIVE (NEGATIVE)
[2022-10-05] MEDS ORDERED: DEXTROSE 50%-WATER 25 GM/50 ML DISP.SYRIN ONE (09:29)
[2022-10-05 09:33] LABS: METHADONE, UR POSITIVE (NEGATIVE); URINE AMPHETAMINES NEGATIVE (NEGATIVE); URINE BENZODIAZEPINES POSITIVE (NEGATIVE)
[2022-10-05] MEDS ORDERED: THIAMINE HCL 100 MG TABLET (FP) PO SCH (10:00)
[2022-10-05] MEDS ORDERED: NICOTINE 14 MG/24 HOURS TOPICAL PATCH TD SCH (10:00)
[2022-10-05] MEDS ORDERED: FOLIC ACID 1 MG TABLET (FP) PO SCH (10:00)
[2022-10-05] MEDS ORDERED: THIAMINE HCL 100 MG TABLET (FP) ONE (11:44)
[2022-10-05] MEDS ORDERED: NICOTINE 14 MG/24 HOURS TOPICAL PATCH TD ONE (11:45)
[2022-10-05] MEDS ORDERED: FOLIC ACID 1 MG TABLET (FP) ONE (11:45)
[2022-10-05] MEDS ORDERED: SODIUM ZIRCONIUM CYCLOSILICATE (LOKELMA) 5 GM PACKET ONE (11:45)
[2022-10-05] MEDS: SODIUM ZIRCONIUM CYCLOSILICATE (LOKELMA) 5 GM PACKET PO SCH ×2 (12:15→22:48)
[2022-10-05] MEDS ORDERED: FUROSEMIDE 40 MG/4 ML INJECTABLE VIAL ONE (16:02)
[2022-10-05] MEDS: FUROSEMIDE 40 MG/4 ML INJECTABLE VIAL IVPUSH SCH (16:11)
[2022-10-05] MEDS ORDERED: methaDONE HCL 10 MG TABLET PO ONE (20:00)
[2022-10-05] MEDS ORDERED: methaDONE 40 MG, methaDONE 10 MG PO ONE (23:45)
[2022-10-06] MEDS ORDERED: LORazepam 0.5 MG TABLET PO PRN
[2022-10-06] MEDS ORDERED: LORazepam 0.5 MG TABLET PO SCH (05:00)
[2022-10-06 07:33] LABS: BASO % 0.4 % (0-2.0); EOS % 0.9 % (0-4.5); HEMATOCRIT 28.1 % (35.4-49); HEMOGLOBIN 8.9 GM/dL (11.7-16.9); LYMPH % 16.9 % (8-40); MCH 27.2 pg (25.7-33.7); MCHC 31.8 g/dl (32.0-35.9); MEAN CELL VOLUME 85.6 fl (80-96); MONO % 6.3 % (3.8-10.2); NEUT % 75.5 % (42.8-82.8); PLATELET COUNT 263 10^3/uL (134-434); RBC 3.28 M/mm3 (4.00-5.60); RDW 16.6 % (11.9-15.9); WHITE BLOOD COUNT 6.4 K/mm3 (4.0-10.0)
[2022-10-06 07:49] LABS: ALBUMIN 2.5 g/dl (3.4-5.0); MAGNESIUM 2.1 mg/dL (1.8-2.4)
[2022-10-06 07:52] LABS: CREATININE 1.9 mg/dL (0.55-1.3); PHOSPHOROUS 4.2 mg/dL (2.5-4.9)
[2022-10-06 07:53] LABS: BILIRUBIN,TOTAL 0.9 mg/dL (0.2-1)
[2022-10-06] MEDS ORDERED: SODIUM ZIRCONIUM CYCLOSILICATE (LOKELMA) 5 GM PACKET PO SCH (10:00)
[2022-10-06] MEDS ORDERED: methaDONE HCL 10 MG TABLET (FOR DETOX USE ONLY) PO ONE (11:05)
[2022-10-06] MEDS: FUROSEMIDE 40 MG/4 ML INJECTABLE VIAL IVPUSH SCH (11:28)
[2022-10-06] MEDS: THIAMINE HCL 100 MG TABLET (FP) PO SCH (11:28)
[2022-10-06] MEDS: APIXABAN 5 MG TABLET PO SCH ×2 (11:28→22:09)
[2022-10-06] MEDS: FOLIC ACID 1 MG TABLET (FP) PO SCH (11:28)
[2022-10-06] MEDS: NICOTINE 14 MG/24 HOURS TOPICAL PATCH TD SCH (11:29)
[2022-10-06] MEDS ORDERED: methaDONE 40 MG, methaDONE 10 MG PO ONE (11:30)
[2022-10-06 12:57] VITALS: BMI 20.1
[2022-10-06] MEDS: DOXYCYCLINE HYCLATE 100 MG CAPSULE PO SCH (17:30)
[2022-10-06] MEDS: PIPERACILLIN/TAZOB 2.25 GM 2.25 GM in DEXTROSE 5%-WATER - 50 ML IVPB SCH (17:30)
[2022-10-07] MEDS: PIPERACILLIN/TAZOB 2.25 GM 2.25 GM in DEXTROSE 5%-WATER - 50 ML IVPB SCH ×3 (02:42→18:18)
[2022-10-07] MEDS ORDERED: LORazepam 0.5 MG TABLET PO ONE (05:00)
[2022-10-07] MEDS ORDERED: methaDONE 80 MG, methaDONE 20 MG PO ONE (06:00)
[2022-10-07 08:01] VITALS: RESP 18
[2022-10-07 08:26] LABS: HEMATOCRIT 28.5 % (35.4-49); HEMOGLOBIN 8.8 GM/dL (11.7-16.9); MCH 26.7 pg (25.7-33.7); MEAN CELL VOLUME 86.1 fl (80-96); PLATELET COUNT 250 10^3/uL (134-434); RBC 3.31 M/mm3 (4.00-5.60); RDW 16.9 % (11.9-15.9); WHITE BLOOD COUNT 5.1 K/mm3 (4.0-10.0)
[2022-10-07 08:48] LABS: ALBUMIN 2.2 g/dl (3.4-5.0); BLOOD UREA NITROGEN 38.2 mg/dL (7-18); CALCIUM 8.8 mg/dL (8.5-10.1)
[2022-10-07 08:49] LABS: MAGNESIUM 2.2 mg/dL (1.8-2.4)
[2022-10-07 08:53] LABS: BILIRUBIN,TOTAL 0.4 mg/dL (0.2-1); CREATININE 1.7 mg/dL (0.55-1.3); PHOSPHOROUS 3.5 mg/dL (2.5-4.9); TOT PROT 6.4 g/dl (6.4-8.2)
[2022-10-07] MEDS ORDERED: methaDONE HCL 10 MG TABLET (FOR DETOX USE ONLY) PO ONE (10:00)
[2022-10-07] MEDS: DOXYCYCLINE HYCLATE 100 MG CAPSULE PO SCH ×2 (10:42→18:18)
[2022-10-07] MEDS: APIXABAN 5 MG TABLET PO SCH ×2 (10:42→21:29)
[2022-10-07] MEDS: FOLIC ACID 1 MG TABLET (FP) PO SCH (10:42)
[2022-10-07] MEDS: NICOTINE 14 MG/24 HOURS TOPICAL PATCH TD SCH (10:42)
[2022-10-07] MEDS: THIAMINE HCL 100 MG TABLET (FP) PO SCH (10:42)
[2022-10-07] MEDS ORDERED: SODIUM ZIRCONIUM CYCLOSILICATE (LOKELMA) 5 GM PACKET PO SCH (11:15)
[2022-10-07] MEDS ORDERED: SODIUM CHLORIDE 0.45% 1,000 ML IV SCH (11:45)
[2022-10-07 18:50] VITALS: BP 110/76; PULSE 87; TEMP 98.3
[2022-10-08] MEDS: PIPERACILLIN/TAZOB 2.25 GM 2.25 GM in DEXTROSE 5%-WATER - 50 ML IVPB SCH ×2 (01:58→10:30)
[2022-10-08 08:24] LABS: CALCIUM 9.2 mg/dL (8.5-10.1)
[2022-10-08 08:25] LABS: BLOOD UREA NITROGEN 40.1 mg/dL (7-18); MAGNESIUM 2.3 mg/dL (1.8-2.4)
[2022-10-08 08:28] LABS: CREATININE 1.8 mg/dL (0.55-1.3); PHOSPHOROUS 3.7 mg/dL (2.5-4.9)
[2022-10-08 08:29] LABS: BASO % 0.7 % (0-2.0); EOS % 1.9 % (0-4.5); HEMATOCRIT 27.1 % (35.4-49); HEMOGLOBIN 8.3 GM/dL (11.7-16.9); LYMPH % 23.4 % (8-40); MCH 26.4 pg (25.7-33.7); MCHC 30.8 g/dl (32.0-35.9); MEAN PLT VOLUME 7.9 fl (7.5-11.1); MONO % 11.4 % (3.8-10.2); NEUT % 62.6 % (42.8-82.8); PLATELET COUNT 240 10^3/uL (134-434); RBC 3.15 M/mm3 (4.00-5.60); RDW 17.1 % (11.9-15.9); WHITE BLOOD COUNT 5.9 K/mm3 (4.0-10.0)
[2022-10-08] MEDS: APIXABAN 5 MG TABLET PO SCH (10:29)
[2022-10-08] MEDS: THIAMINE HCL 100 MG TABLET (FP) PO SCH (10:30)
[2022-10-08] MEDS: DOXYCYCLINE HYCLATE 100 MG CAPSULE PO SCH (10:30)
[2022-10-08] MEDS: NICOTINE 14 MG/24 HOURS TOPICAL PATCH TD SCH (10:30)
[2022-10-08] MEDS: FOLIC ACID 1 MG TABLET (FP) PO SCH (10:30)
== END 2022-10-08 11:32 | disposition left against medical advice (07) | DRG 92 ==
LOC: JER 18:00 → JERBED 21:40 → J4W 10-05 20:58
PROVIDERS: ADMIT Internal Medicine; ATTEND Internal Medicine
DX: G92.8 Other toxic encephalopathy (principal); E87.0 Hyperosmolality and hypernatremia; I82.5Z2 Chronic embolism and thrombosis of unspecified deep veins of left distal lower extremity; L97.818 Non-pressure chronic ulcer of other part of right lower leg with other specified severity; F10.239 Alcohol dependence with withdrawal, unspecified; N17.9 Acute kidney failure, unspecified; F11.20 Opioid dependence, uncomplicated; J84.9 Interstitial pulmonary disease, unspecified; L03.90 Cellulitis, unspecified; I83.018 Varicose veins of right lower extremity with ulcer other part of lower leg; J44.9 Chronic obstructive pulmonary disease, unspecified; I12.9 Hypertensive chronic kidney disease with stage 1 through stage 4 chronic kidney disease, or unspecified chronic kidney disease; N18.9 Chronic kidney disease, unspecified; R00.0 Tachycardia, unspecified; E16.2 Hypoglycemia, unspecified; N40.0 Benign prostatic hyperplasia without lower urinary tract symptoms; B19.20 Unspecified viral hepatitis C without hepatic coma; E87.5 Hyperkalemia; F41.9 Anxiety disorder, unspecified; R29.6 Repeated falls; T42.4X5A Adverse effect of benzodiazepines, initial encounter; T40.3X5A Adverse effect of methadone, initial encounter; D50.9 Iron deficiency anemia, unspecified; J84.10 Pulmonary fibrosis, unspecified; Z72.0 Tobacco use
CPT/HCPCS: 0241U-QW; 36415; 70450-TC; 71045-TC-FY; 71250-TC; 72125-TC; 73590-TC-RT-FY; 76775-TC; 80048; 80053; 80307; 81003; 82550; 82553; 82728; 82803; 83540; 83550; 83605; 83735; 83880; 84100; 84443; 84484; 85025; 85027; 85610; 85651; 85730; 86140; 86713; 86850; 86900; 86901; 87040; 87086; 93005; 93010; 99285-25; J0875

== ENCOUNTER 2023-03-28 00:08 | Emergency (ER) | payer OTHER ==
[2023-03-28 00:30] VITALS: RESP 18; BMI 21.8
[2023-03-28] MEDS ORDERED: ACETAMINOPHEN 1000 MG/100 ML BAG IVPB ONE (01:05)
[2023-03-28] MEDS ORDERED: ACETAMINOPHEN INJECTION 100 ML IVPB ONE (01:31)
[2023-03-28] MEDS ORDERED: methaDONE HCL 10 MG TABLET PO ONE (01:45)
[2023-03-28] MEDS ORDERED: methaDONE HCL 10 MG TABLET ONE (02:30)
[2023-03-28] MEDS ORDERED: MELATONIN 5 MG TABLETS PO ONE (03:30)
[2023-03-28 04:21] LABS: BASO % 0.6 % (0-2.0); EOS % 1.5 % (0-4.5); HEMATOCRIT 30.8 % (35.4-49); HEMOGLOBIN 9.9 GM/dL (11.7-16.9); LYMPH % 18.4 % (8-40); MCH 27.3 pg (25.7-33.7); MCHC 32.1 g/dl (32.0-35.9); MEAN CELL VOLUME 84.9 fl (80-96); NEUT % 73.5 % (42.8-82.8); PLATELET COUNT 250 10^3/uL (134-434); RBC 3.62 M/mm3 (4.00-5.60); WHITE BLOOD COUNT 8.6 K/mm3 (4.0-10.0)
[2023-03-28] MEDS ORDERED: DALBAVANCIN HCL 1,500 MG in DEXTROSE 5%-WATER - 500 ML IVPB ONE (04:37)
[2023-03-28 04:40] LABS: POTASSIUM 4.3 mmol/L (3.5-5.1)
[2023-03-28 04:42] LABS: CALCIUM 9.3 mg/dL (8.5-10.1)
[2023-03-28 04:44] LABS: ALBUMIN 3.3 g/dl (3.4-5.0); BLOOD UREA NITROGEN 37.1 mg/dL (7-18)
[2023-03-28 04:47] LABS: CREATININE 2.3 mg/dL (0.55-1.3)
[2023-03-28 04:48] LABS: BILIRUBIN,TOTAL 0.2 mg/dL (0.2-1); TOT PROT 8.4 g/dl (6.4-8.2)
[2023-03-28] MEDS ORDERED: DALBAVANCIN HCL 500 MG VIAL (RESTRICTED TO ID ONLY) IVPB ONE (05:01)
[2023-03-28 10:37] VITALS: BP 138/74; PULSE 78; TEMP 98
== END 2023-03-28 10:38 | disposition home or self-care (01) ==
LOC: JER 00:08
PROC: 3E03329 Introduction of Other Anti-infective into Peripheral Vein, Percutaneous Approach (ICD-10-PCS; principal; 2023-03-28)
PROC: 3E033NZ Introduction of Analgesics, Hypnotics, Sedatives into Peripheral Vein, Percutaneous Approach (ICD-10-PCS; 2023-03-28)
DX: R60.0 Localized edema (principal); S81.802A Unspecified open wound, left lower leg, initial encounter; S81.801A Unspecified open wound, right lower leg, initial encounter; X58.XXXA Exposure to other specified factors, initial encounter
CPT/HCPCS: 36415; 80053; 85025; 87040; 96365; 96375; 99284-25; J0875